=== PATIENT | female | born 1935 | race Caucasian/White ===

== ENCOUNTER 2017-01-24 16:23 | Inpatient (IN) | payer MEDICARE, BC ==
--- NOTE | 2017-01-24 16:46 | ER Document Report ---
ED Cardiac - General Chief Complaint: Irregular Pulse Stated Complaint: IRREGULAR HEART RATE,WEAK Time Seen by Provider: 01/24/17 16:44 Notes: Is a 81-year-old female who presents emergency department after referral from her primary care physician's office Dr. Soliz for an irregular heart rate. Patient states that since Monday she has been having weakness, diaphoresis, chills, nausea with vomiting, headache and shortness of breath. States that she felt like she was getting the flu. She denies any heart palpitations, chest pain, dyspnea on exertion, productive cough. Patient was referred from Dr. Soliz with A. fib with RVR. Patient denies any history of irregular heartbeat. She states she is on a blood thinner (Coumadin 6mg daily) for "many years" since she had a cardiac stent x1 for MS in the . She states she gets her blood drawn monthly and is not aware what her most recent INR was. She denies any hematochezia, BRB in her emesis, diarrhea, dark stools, BRBPR. Medical history significant for hypertension, hyperlipidemia, history of MS Past surgical history significant for cardiac stent in for MS Social history significant for former smoker, denies any alcohol or drug use Last stress test was 5 years ago Denies any allergies Medications metoprolol 50 mg twice daily, amitriptyline, pravastatin, amlodipine , Coumadin 6mg daily - Related Data Allergies/Adverse Reactions: No Known Allergies Allergy (Unverified 02/08/13 23:22) Home Medications: Current Home Medications Amitriptyline HCl [Elavil 25 mg Tablet] 25 mg PO DAILY 01/24/17 [History] Amlodipine Besylate [Norvasc 2.5 mg Tablet] 2.5 mg PO DAILY 01/24/17 [History] Metoprolol Succinate [Toprol Xl 50 mg Tab.sr] 50 mg PO Q12 01/24/17 [History] Pravastatin Sodium [Pravachol] 20 mg PO QHS 01/24/17 [History] Warfarin Sodium [Coumadin] 6 mg PO DAILY 01/24/17 [History] Past Medical History - Social History Smoking Status: Former Smoker Family History: Reviewed & Not Pertinent - Past Medical History Cardiac Medical History: Reports: Hx Hypercholesterolemia, Hx Hypertension Pulmonary Medical History: Denies: Hx Tuberculosis Psychiatric Medical History: Denies: Hx Depression - Immunizations Hx Diphtheria, Pertussis, Tetanus Vaccination: No - UNK Review of Systems - Review of Systems Constitutional: See HPI EENT: No symptoms reported Cardiovascular: See HPI Respiratory: See HPI Gastrointestinal: See HPI -: Yes All other systems reviewed and negative Physical Exam - Vital signs Vitals: Pulse Ox 94 01/24/17 16:30 Interpretation: Hypotensive, Tachycardic - Notes Notes: PHYSICAL EXAM GENERAL: Alert, interacts well. HEAD: Normocephalic, atraumatic. EYES: Pupils equal, round, and reactive to light. Extraocular movements intact. ENT: Oral mucosa moist, tongue midline. NECK: Full range of motion. Supple. Trachea midline. LUNGS: Clear to auscultation bilaterally, no wheezes, rales, or rhonchi. No respiratory distress. HEART: Regular rate and rhythm. No murmurs, gallops, or rubs. ABDOMEN: Soft, nondistended, nontender. No guarding, rebound, or rigidity.. Bowel sounds present in all 4 quadrants. EXTREMITIES: Moves all 4 extremities spontaneously. No edema, radial and dorsalis pedis pulses 2/4 bilaterally. No cyanosis. NEUROLOGICAL: Alert and oriented x4. Normal speech. PSYCH: Normal affect, normal mood. SKIN: Warm, dry, normal turgor. No rashes or lesions noted. Course - Re-evaluation Re-evalutation: 01/24/17 18:26 Patient is an 81-year-old female who presents via EMS with A. fib and RVR. Patient is hemodynamically stable, no acute distress and afebrile. Upon arrival , IV access was established and patient received 5 mg of metoprolol. Patient states that she was due for her second dose of metoprolol for this afternoon which she received in the emergency department. Patient has been placed on a monitoring engineer with a heart rate being maintained in the 120s and she received her medication. No acute distress noted since she received her medications. Chest x-ray does reveal a right lower lobe mass with surrounding pneumonia. Patient does have mild leukocytosis of 15 on CBC, no evidence of anemia. 01/24/17 18:48 PT/INR supratherapeutic at 114 and 15.1. Patient will receive 5mg PO vitamin K since her INR is > 10 and without s/s bleeding. CTA shows mass vs. consolidation. 01/24/17 19:[address] Mikal Rai to [facility] for sepsis 2/2 pneumonia, rate controlled a.fib with RVR with a rate of 120's and a BP of 110/80's, supratherapeutic INR 2/2 coumadin. I have signed out to Eben PELAEZ. - Vital Signs Vital signs: Temp Pulse Resp BP Pulse Ox 98.5 F 88 23 H 102/65 92 01/25/17 03:57 01/25/17 07:00 01/25/17 04:00 01/25/17 06:01 01/25/17 04:00 - Laboratory Result Diagrams: 01/24/17 17:02 01/24/17 17:02 Laboratory results interpreted by me: 01/24/17 01/24/17 01/24/17 17:02 17:02 17:02 WBC 15.6 H RDW 14.6 H Seg Neuts % (Manual) 86 H Lymphocytes % (Manual) 7 L Abs Neuts (Manual) 13.9 H PT INR D-Dimer Sodium 130.8 L Chloride 92 L Carbon Dioxide 21 L BUN 41 H Est GFR ( Amer) 51 L Est GFR (Non-Af Amer) 42 L Glucose 169 H Lactic Acid Direct Bilirubin 0.5 H AST 44 H Total Protein 6.1 L Albumin 3.2 L Free T3 pg/mL 2.52 L 01/24/17 01/24/17 17:02 18:00 WBC RDW Seg Neuts % (Manual) Lymphocytes % (Manual) Abs Neuts (Manual) PT 114.2 H* INR 15.14 H* D-Dimer 1.28 H Sodium Chloride Carbon Dioxide BUN Est GFR ( Amer) Est GFR (Non-Af Amer) Glucose Lactic Acid 3.9 H Direct Bilirubin AST Total Protein Albumin Free T3 pg/mL - Diagnostic Test Radiology reviewed: Image reviewed - Chest x-ray with evidence of a right lower lobe mass with surrounding pneumonia, Reports reviewed - EKG Interpretation by Me Rate: Tachycardia Rhythm: A.Fib When compared to previous EKG there are: Previous EKG unavailable Discharge - Discharge Clinical Impression: Atrial fibrillation, Sepsis, Pneumonia Disposition: ADMITTED INPATIENT Admitting Provider: Hospitalist - Dr. Ferny Rai Unit Admitted: [facility]
[2017-01-24] MEDS ORDERED: METOPROLOL TARTRATE PF/INJ 5 MG/5 ML SDV IV ONE (16:55)
[2017-01-24] MEDS: NORMAL SALINE 500 ML IV PRN ×2 (17:13→20:00)
[2017-01-24 17:29] LABS: HEMATOCRIT 36.7 % (36.0-47.0); HEMOGLOBIN 12.1 g/dL (12.0-15.5); HGB HCT DIFFERENCE -0.4; MEAN CORPUSCULAR HEMOGLOBIN 28.3 pg (27.0-33.4); MEAN CORPUSCULAR HGB CONC 33.1 g/dL (32.0-36.0); MEAN CORPUSCULAR VOLUME 86 fl (80-97); RED BLOOD COUNT 4.29 10^6/uL (3.72-5.28); RED CELL DISTRIBUTION WIDTH 14.6 % (11.5-14.0); WHITE BLOOD COUNT 15.6 10^3/uL (4.0-10.5)
[2017-01-24] MEDS ORDERED: METOPROLOL TARTRATE 50 MG TABLET PO ONE (17:41)
[2017-01-24 17:46] LABS: ALANINE AMINOTRANSFERASE 38 U/L (9-52); ALBUMIN 3.2 g/dL (3.5-5.0); ALKALINE PHOSPHATASE 87 U/L (38-126); ANION GAP 18 (5-19); ASPARTATE AMINO TRANSFERASE 44 U/L (14-36); BILIRUBIN,DIRECT 0.5 mg/dL (0.0-0.4); BILIRUBIN,TOTAL 0.7 mg/dL (0.2-1.3); BLOOD UREA NITROGEN 41 mg/dL (7-20); CALCIUM 8.8 mg/dL (8.4-10.2); CARBON DIOXIDE 21 mmol/L (22-30); CHLORIDE 92 mmol/L (98-107); CREATINE KINASE 108 U/L (30-135); CREATININE RESULT 1.22 mg/dL (0.52-1.25); GLUCOSE 169 mg/dL (75-110); POTASSIUM 3.7 mmol/L (3.6-5.0); SODIUM 130.8 mmol/L (137-145); TOTAL PROTEIN 6.1 g/dL (6.3-8.2)
--- NOTE | 2017-01-24 17:51 | RADIOLOGY REPORT (SQ) ---
EXAM DESCRIPTION: CHEST SINGLE VIEW COMPLETED DATE/TIME: 01/24/2017 5:42 pm REASON FOR STUDY: a fib COMPARISON: 09/01/2013 EXAM PARAMETERS: NUMBER OF VIEWS: One view. TECHNIQUE: Single frontal radiographic view of the chest acquired. RADIATION DOSE: NA LIMITATIONS: None. FINDINGS: LUNGS AND PLEURA: There is a right lower lobe mass with some surrounding atelectasis or pn eumonia. There are small bilateral pleural effusions. Minimal left basilar atelectasis. There is s carring in both lung apices. MEDIASTINUM AND HILAR STRUCTURES: No masses. Contour normal. HEART AND VASCULAR STRUCTURES: Heart normal in size. Normal vasculature. BONES: No acute findings. HARDWARE: None in the chest. OTHER: No other significant finding. IMPRESSION: Right lower lobe mass with surrounding atelectasis or pneumonia. Small bilateral pleura l effusions. There is scarring in both lung apices. Neoplasm cannot be excluded. TECHNICAL DOCUMENTATION: JOB ID: [id number]
[2017-01-24 17:59] LABS: CREATINE KINASE MB 1.29 ng/mL (<4.55)
[2017-01-24 18:00] LABS: TROPONIN I < 0.012 ng/mL
[2017-01-24 18:03] LABS: FREE T3 2.52 pg/mL (2.77-5.27)
[2017-01-24 18:05] LABS: BAND NEUTROPHILS % (MANUAL) 3 % (3-5); BASOPHILS % (MANUAL) 0 % (0-2); EOSINOPHILS % (MANUAL) 0 % (0-6); LYMPHOCYTES % (MANUAL) 7 % (13-45); TOTAL CELLS COUNTED 100
[2017-01-24 18:07] LABS: ACANTHOCYTES SLIGHT; ANISOCYTOSIS SLIGHT; OVALOCYTES SLIGHT; PLATELET CLUMPS PRESENT; POIKILOCYTOSIS 1+; POLYCHROMASIA SLIGHT; TOXIC GRANULATION SLIGHT; TOXIC VACUOLATION PRESENT
[2017-01-24] MEDS ORDERED: NORMAL SALINE 500 ML IV PRN (18:15)
[2017-01-24 18:16] LABS: THYROID STIMULATING HORMONE 0.99 uIU/mL (0.47-4.68)
[2017-01-24] MEDS ORDERED: CEFTRIAXONE 1 GM/D5W RTU 50 ML IV ONE (18:18)
[2017-01-24] MEDS ORDERED: AZITHROMYCIN INJ 500 MG VIAL IV ONE (18:19)
[2017-01-24 18:21] LABS: D-DIMER 1.28 ug/mL (0.00-0.50)
[2017-01-24 18:35] LABS: PROTHROMBIN TIME 114.2 SEC (11.4-15.4)
[2017-01-24] MEDS ORDERED: PHYTONADIONE 5 MG TABLET PO ONE (18:37)
--- NOTE | 2017-01-24 18:58 | RADIOLOGY REPORT (SQ) ---
EXAM DESCRIPTION: CTA CHEST COMPLETED DATE/TIME: 01/24/2017 6:30 pm REASON FOR STUDY: RLL mass, a fib COMPARISON: None. TECHNIQUE: CT scan of the chest performed using helical scanning technique with dynamic intravenous contrast injection. Images reviewed with lung, soft tissue and bone windows. Reconstructed coronal and sagittal MPR images reviewed. Additional 3 dimensional post-processing performed to develop Maximal Intensity Projection images (VA P). All images stored on PACS. All CT scanners at this facility use dose modulation, iterative reconstruction, and/or weight based d osing when appropriate to reduce radiation dose to as low as reasonably achievable (ALARA). [facility]: Dose Right [facility]: CareDose [facility]: Dose Right [facility]: Teradose 4D [facility]: Tab [place] CONTRAST TYPE AND DOSE: 62 mL Isovue 370- low osmolar. RENAL FUNCTION: Creatinine 1.2 BUN 41 RADIATION DOSE: 30.85 mGy. LIMITATIONS: None. FINDINGS: LUNGS AND PLEURA: There is the appearance of about a 5 cm mass in the right lower lobe. H owever, this mass is contiguous with soft tissue density that contains air bronchograms superiorly an d inferiorly, suggesting that this may represent consolidation. Extensive opacification is present i nferiorly in the right lower lobe as well. AORTA AND GREAT VESSELS: No aneurysm or dissection. Atherosclerosis. HEART: No pericardial effusion. PULMONARY ARTERIES: No emboli visualized in the main pulmonary arteries or the segmental branches. HILAR AND MEDIASTINAL STRUCTURES: The opacity in the superior segments of the right lower lobe is con tiguous with the right hilum. There are scattered mediastinal nodes there are generally small. HARDWARE: None in the chest. UPPER ABDOMEN: No significant findings. Limited exam. THYROID AND OTHER SOFT TISSUES: No masses. No adenopathy. BONES: No acute or significant finding. 3D MIPS: Confirm above findings. OTHER: No other significant finding. IMPRESSION: 1. There is a large mass involving the superior segments of the right lower lobe with a ir bronchograms peripherally. Certainly this may represent neoplasm. It could represent dense conso lidation. 2. There is no evidence of pulmonary embolus. TECHNICAL DOCUMENTATION: JOB ID: [id number] Quality ID # [id number]: Final reports with documentation of one or more dose reduction techniques (e.g., Au tomated exposure control, adjustment of the mA and/or kV according to patient size, use of iterative reconstruction technique) 2010 [employer]- All Rights Reserved
[2017-01-24] MEDS ORDERED: NORMAL SALINE 600 ML IV PRN (19:15)
--- NOTE | 2017-01-24 19:31 | EKG REPORT ---
SEVERITY:- ABNORMAL ECG - ATRIAL FIBRILLATION WITH RAPID V-RATE REPOLARIZATION ABNORMALITY, PROB RATE RELATED : Confirmed by: Anjel Durbin MD 24-Jan-2017 19:31:23
[2017-01-24] MEDS ORDERED: NORMAL SALINE 1000 ML 2,000 ML IV ONE (19:35)
[2017-01-24] MEDS ORDERED: IPRATROPIUM/ALBUTEROL 0.5-2.5 MG/3 ML AMPUL NEB PRN (19:36)
[2017-01-24] MEDS ORDERED: GUAIFENESIN SYRP 200 MG/10 ML UDC PO PRN (19:36)
[2017-01-24] MEDS ORDERED: ACETAMINOPHEN 325 MG TABLET PO PRN (19:36)
[2017-01-24] MEDS ORDERED: MAGNESIUM SULFATE/D5W 100 ML IV SCH (19:45)
[2017-01-24 20:24] LABS: APPEARANCE,URINE CLOUDY; BILIRUBIN,URINE NEGATIVE (NEGATIVE); GLUCOSE, URINE NEGATIVE (NEGATIVE); KETONES,URINE TRACE mg/dL (NEGATIVE); LEUKOCYTE ESTERASE,URINE SMALL (NEGATIVE); NITRITE,URINE NEGATIVE (NEGATIVE); PROTEIN,URINE 100 mg/dL (NEGATIVE); URINE SPECIFIC GRAVITY 1.035; UROBILINOGEN,URINE NEGATIVE mg/dL (<2.0)
[2017-01-24] MEDS: IPRATROPIUM/ALBUTEROL 0.5-2.5 MG/3 ML AMPUL NEB SCH (20:35)
[2017-01-24] MEDS: DILTIAZEM HCL/D5W 125 ML IV PRN (20:55)
[2017-01-24 21:23] LABS: PROTHROMBIN TIME > 120.0 SEC (11.4-15.4)
[2017-01-24] MEDS ORDERED: NORMAL SALINE 1000 ML 1,000 ML IV SCH (22:00)
[2017-01-24] MEDS ORDERED: CEFEPIME 2 GM/D5W RTU 50 ML IV SCH (22:00)
--- NOTE | 2017-01-24 22:04 | PDOC H&P ---
History of Present Illness Admission Date/PCP: 01/24/17 19:37 DONA WHITLOCK MD Patient complains of: Shortness of breath History of Present Illness: MARTA ROGERS is a 81 year old female with a past medical history of hypertension and coronary artery disease who would been her usual state of health at approximately 5 days ago noting shortness of breath and productive cough denying fever chills nausea vomiting chest pain or palpitations she comes to the emergency room for evaluation she was found to be secondary to pneumonia with lung mass, supratherapeutic INR with unclear Coumadin indication, and in A. fib with RVR. Started on empiric antibiotics refer to the hospital for admission. Previous episode of pneumonia or atrial fibrillation or palpitations. Unclear as to whether she has received a Pneumovax. Recent weight loss or bleeding. Past Medical History Cardiac Medical History: Reports: Hyperlipidema, Hypertension Pulmonary Medical History: Denies: Tuberculosis Psychiatric Medical History: Denies: Depression Social History Information Source: Patient, Relative Lives with: Family Smoking Status: Never Smoker Frequency of Alcohol Use: None Hx Recreational Drug Use: No Hx Prescription Drug Abuse: No - Advance Directive Resuscitation Status: Full Code Family History Family History: COPD. denies: Malignancy Parental Family History Reviewed: Yes Children Family History Reviewed: Yes Sibling(s) Family History Reviewed.: Yes Medication/Allergy Home Medications: Amitriptyline HCl [Elavil 25 mg Tablet] 25 mg PO DAILY 01/24/17 Amlodipine Besylate [Norvasc 2.5 mg Tablet] 2.5 mg PO DAILY 01/24/17 Metoprolol Succinate [Toprol Xl 50 mg Tab.sr] 50 mg PO Q12 01/24/17 Pravastatin Sodium [Pravachol] 20 mg PO QHS 01/24/17 Warfarin Sodium [Coumadin] 6 mg PO DAILY 01/24/17 Allergies/Adverse Reactions: No Known Allergies Allergy (Unverified 02/08/13 23:22) Review of Systems Constitutional: ABSENT: chills, fever(s), headache(s), weight gain, weight loss Eyes: ABSENT: visual disturbances Ears: ABSENT: hearing changes Cardiovascular: ABSENT: chest pain, dyspnea on exertion, edema, orthropnea, palpitations Respiratory: ABSENT: cough, hemoptysis Gastrointestinal: ABSENT: abdominal pain, constipation, diarrhea, hematemesis, hematochezia, nausea, vomiting Genitourinary: ABSENT: dysuria, hematuria Musculoskeletal: ABSENT: joint swelling Integumentary: ABSENT: rash, wounds Neurological: ABSENT: abnormal gait, abnormal speech, confusion, dizziness, focal weakness, syncope Psychiatric: ABSENT: anxiety, depression, homidical ideation, suicidal ideation Endocrine: ABSENT: cold intolerance, heat intolerance, polydipsia, polyuria Hematologic/Lymphatic: ABSENT: easy bleeding, easy bruising Physical Exam Vital Signs: Temp Pulse Resp BP Pulse Ox 120 H 28 H 91/66 L 90 L 01/24/17 20:35 01/24/17 21:01 01/24/17 21:01 01/24/17 21:01 General appearance: PRESENT: cooperative, mild distress, thin. ABSENT: disheveled Head exam: PRESENT: atraumatic, normocephalic Eye exam: PRESENT: conjunctiva pink, EOMI, PERRLA. ABSENT: scleral icterus Ear exam: PRESENT: normal external ear exam Mouth exam: PRESENT: moist, tongue midline Neck exam: ABSENT: carotid bruit, JVD, lymphadenopathy, thyromegaly Respiratory exam: PRESENT: accessory muscle use, crackles, decreased breath sounds, prolonged expiratory phas, rhonchi, tachypnea. ABSENT: chest wall tenderness, symmetrical Cardiovascular exam: PRESENT: irregular rhythm. ABSENT: diastolic murmur, rubs , systolic murmur Pulses: PRESENT: normal dorsalis pedis pul Vascular exam: PRESENT: normal capillary refill GI/Abdominal exam: PRESENT: normal bowel sounds, soft. ABSENT: distended, guarding, mass, organolmegaly, rebound, tenderness Rectal exam: PRESENT: deferred Extremities exam: PRESENT: full ROM. ABSENT: calf tenderness, clubbing, pedal edema Neurological exam: PRESENT: alert, awake, oriented to person, oriented to place , oriented to time, oriented to situation, CN II-XII grossly intact. ABSENT: motor sensory deficit Psychiatric exam: PRESENT: appropriate affect, normal mood. ABSENT: homicidal ideation, suicidal ideation Skin exam: PRESENT: dry, intact, warm. ABSENT: cyanosis, rash Results Laboratory Results: 01/24/17 20:05 Urine Color YELLOW Urine Appearance CLOUDY Urine pH 7.0 Ur Specific [place] 1.035 Urine Protein 100 H Urine Glucose (UA) NEGATIVE Urine Ketones TRACE H Urine Blood SMALL H Urine Nitrite NEGATIVE Ur Leukocyte Esterase SMALL H Urine WBC (Auto) 22 Urine RBC (Auto) 7 Impressions: Chest X-Ray 01/24/17 16:45 IMPRESSION: Right lower lobe mass with surrounding atelectasis or pneumonia. Small bilateral pleural effusions. There is scarring in both lung apices. Neoplasm cannot be excluded. Chest/Abdomen CTA 01/24/17 18:01 IMPRESSION: 1. There is a large mass involving the superior segments of the right lower lobe with air bronchograms peripherally. Certainly this may represent neoplasm. It could represent dense consolidation. 2. There is no evidence of pulmonary embolus. Assessment & Plan - Diagnosis (1) Pneumonia Is this a current diagnosis for this admission?: YesPlan: Acute problem. Likely postobstructive she is placed on cefepime and Levaquin albuterol and Atrovent with follow-up blood and sputum culture, CBC and chemistry (2) Sepsis Is this a current diagnosis for this admission?: YesPlan: Secondary to #1. IV fluid challenge consideration of stress dose steroids or pressors as needed. (3) Supratherapeutic INR Is this a current diagnosis for this admission?: YesPlan: Unclear indication for Coumadin will obtain her records. She has received vitamin K subcu and daily INRs ordered (4) Lung mass Is this a current diagnosis for this admission?: YesPlan: Pulmonology and oncology consultation ordered (5) Atrial fibrillation Is this a current diagnosis for this admission?: YesPlan: Likely secondary to #1. IV Cardizem, IV fluid challenge reevaluation of cardiac enzymes and transition to p.o. beta-cathy - Time Time Spent: 50 to 70 Minutes - Inpatient Certification Medical Necessity: Need Close Monitoring Due to Risk of Patient Decompensation
[2017-01-24] MEDS: GUAIFENESIN 600 MG TABLET.SA PO SCH (22:19)
[2017-01-24] MEDS: METOPROLOL TARTRATE 50 MG TABLET PO SCH (22:20)
[2017-01-25] MEDS ORDERED: CEFEPIME INJ 1 GM VIAL IV PRN (00:27)
[2017-01-25] MEDS ORDERED: CEFEPIME 2 GM/D5W RTU 2 GM/50 ML RTUPB IV ONE (01:00)
[2017-01-25] MEDS: IPRATROPIUM/ALBUTEROL 0.5-2.5 MG/3 ML AMPUL NEB SCH ×4 (02:01→19:45)
[2017-01-25] MEDS ORDERED: PHYTONADIONE INJ 10 MG/1 ML AMPULE SUBCUT ONE (02:32)
[2017-01-25] MEDS: HYDROCORTISONE SOD SUCCINATE INJ/PF 100 MG/2 ML SDV IV SCH ×3 (06:26→21:11)
[2017-01-25] MEDS: AMITRIPTYLINE HCL 25 MG TABLET PO SCH (09:18)
[2017-01-25] MEDS: AMLODIPINE BESYLATE 2.5 MG TABLET PO SCH (09:18)
[2017-01-25] MEDS: GUAIFENESIN 600 MG TABLET.SA PO SCH ×2 (09:19→21:11)
[2017-01-25] MEDS: LEVOFLOXACIN 750 MG/D5W RTU 150 ML IV SCH (09:19)
[2017-01-25] MEDS: METOPROLOL TARTRATE 50 MG TABLET PO SCH (09:19)
[2017-01-25] MEDS: CEFEPIME HCL 2 GM in DEXTROSE 5%-WATER 50 ML IV SCH (09:20)
[2017-01-25] MEDS ORDERED: CEFEPIME 2 GM/D5W RTU 2 GM/50 ML RTUPB IV SCH (10:00)
[2017-01-25] MEDS: DILTIAZEM HCL/D5W 125 ML IV PRN (10:19)
[2017-01-25 10:31] LABS: PROTHROMBIN TIME 100.7 SEC (11.4-15.4)
[2017-01-25] MEDS ORDERED: NORMAL SALINE 1000 ML 1,000 ML IV ONE (11:55)
[2017-01-25] MEDS ORDERED: METOPROLOL TARTRATE 50 MG TABLET PO SCH (12:01)
--- NOTE | 2017-01-25 12:11 | PDOC PROGRESS REPORT ---
Subjective Subjective:: Patient seen on morning rounds. She is awake alert and oriented 3. She is presently resting in bed during a breathing treatment. She states her breathing feels much improved since she arrived last night. She continues to have cough, it is not productive at the present time. She denies any chest pain , dizziness or dyspnea at the present time. She denies any nausea, vomiting, abdominal pain or diarrhea. She states she has had a good appetite at home prior to admission. She denies any weight loss. She does have a remote tobacco history. She states she does not smoke at present time. Physical Exam Vital Signs: Temp Pulse Resp BP Pulse Ox 98.5 F 98 20 102/65 88 L 01/25/17 03:57 01/25/17 08:29 01/25/17 08:29 01/25/17 06:01 01/25/17 08:29 Intake & Output 01/24/17 01/25/17 01/26/17 06:59 06:59 06:59 Intake Total 352 Output Total 150 Balance 202 Weight 56.7 kg General appearance: PRESENT: no acute distress, thin, well-developed Head exam: PRESENT: atraumatic, normocephalic Eye exam: PRESENT: conjunctival injection Ear exam: PRESENT: normal external ear exam Mouth exam: PRESENT: moist, tongue midline Neck exam: ABSENT: carotid bruit, JVD, lymphadenopathy, thyromegaly Respiratory exam: PRESENT: crackles - right base, decreased breath sounds, symmetrical, unlabored Cardiovascular exam: PRESENT: RRR. ABSENT: diastolic murmur, rubs, systolic murmur Pulses: PRESENT: normal dorsalis pedis pul Vascular exam: PRESENT: normal capillary refill GI/Abdominal exam: PRESENT: normal bowel sounds, soft. ABSENT: distended, guarding, mass, organolmegaly, rebound, tenderness Rectal exam: PRESENT: deferred Extremities exam: PRESENT: full ROM. ABSENT: calf tenderness, clubbing, pedal edema Neurological exam: PRESENT: alert, awake, oriented to person, oriented to place , oriented to time, oriented to situation, CN II-XII grossly intact. ABSENT: motor sensory deficit Psychiatric exam: PRESENT: appropriate affect, normal mood. ABSENT: homicidal ideation, suicidal ideation Skin exam: PRESENT: dry, intact, warm. ABSENT: cyanosis, rash Results Laboratory Results: 01/24/17 01/24/17 20:05 23:09 Lactic Acid 2.0 Urine Color YELLOW Urine Appearance CLOUDY Urine pH 7.0 Ur Specific [place] 1.035 Urine Protein 100 H Urine Glucose (UA) NEGATIVE Urine Ketones TRACE H Urine Blood SMALL H Urine Nitrite NEGATIVE Ur Leukocyte Esterase SMALL H Urine WBC (Auto) 22 Urine RBC (Auto) 7 Impressions: Chest X-Ray 01/24/17 16:45 IMPRESSION: Right lower lobe mass with surrounding atelectasis or pneumonia. Small bilateral pleural effusions. There is scarring in both lung apices. Neoplasm cannot be excluded. Chest/Abdomen CTA 01/24/17 18:01 IMPRESSION: 1. There is a large mass involving the superior segments of the right lower lobe with air bronchograms peripherally. Certainly this may represent neoplasm. It could represent dense consolidation. 2. There is no evidence of pulmonary embolus. Assessment & Plan - Diagnosis (1) Sepsis Qualifiers: Sepsis type: sepsis due to unspecified organism Qualified Code(s): A41.9 - Sepsis, unspecified organism Is this a current diagnosis for this admission?: YesPlan: Patient with tachycardia, tachypnea, hypotension and fever upon presentation. She appears to have a right lower lobe pneumonia associated with the right lower lobe lung mass. First 2 sets of blood cultures are positive for gram- positive cocci. She was aggressively given IV hydration and antibiotics. (2) Pneumonia Qualifiers: Laterality: right Lung location: lower lobe of lung Is this a current diagnosis for this admission?: YesPlan: Patient started on broad-spectrum IV antibiotics, blood cultures are positive for gram-positive cocci, sputum cultures pending. Appears to be associated with a right lower lung mass (3) Atrial fibrillation Qualifiers: Atrial fibrillation type: paroxysmal Qualified Code(s): I48.0 - Paroxysmal atrial fibrillation Is this a current diagnosis for this admission?: YesPlan: Patient has had a prior history of atrial fibrillation on warfarin. She is presently rate controlled on IV diltiazem. Initiate low-dose p.o. diltiazem and wean IV diltiazem off. (4) Lung mass Is this a current diagnosis for this admission?: YesPlan: Patient with no prior history lung cancer, found to have a 5 cm right lower lobe lung mass. Pulmonary has been consulted. She will need biopsy once her INR is subtherapeutic. (5) Supratherapeutic INR Is this a current diagnosis for this admission?: YesPlan: Patient's INR is noted to be 15 on admission. She is on daily warfarin therapy. She states it was last checked 2 months ago. She denies any recent antibiotic use. She states she has been taking it normal dose she was prescribed. She was given 2 doses of vitamin K in the emergency department. INR today is pending. She has no overt signs of any bleeding. - Time Time Spent with patient: 25-34 minutes Critical Time spent with patient: 15-24 minutes Medications reviewed and adjusted accordingly: Yes
[2017-01-25] MEDS ORDERED: DILTIAZEM HCL 60 MG TABLET PO ONE (12:30)
[2017-01-25] MEDS: DILTIAZEM HCL 60 MG TABLET PO SCH ×2 (13:53→21:11)
[2017-01-25] MEDS: METOPROLOL TARTRATE 25 MG TABLET PO SCH (21:11)
[2017-01-26] MEDS: IPRATROPIUM/ALBUTEROL 0.5-2.5 MG/3 ML AMPUL NEB SCH ×4 (01:25→19:48)
[2017-01-26] MEDS: DILTIAZEM HCL 60 MG TABLET PO SCH ×3 (05:27→22:07)
[2017-01-26] MEDS: HYDROCORTISONE SOD SUCCINATE INJ/PF 100 MG/2 ML SDV IV SCH ×3 (05:27→22:06)
[2017-01-26 09:59] LABS: PROTHROMBIN TIME 53.9 SEC (11.4-15.4)
[2017-01-26] MEDS: AMLODIPINE BESYLATE 2.5 MG TABLET PO SCH (10:46)
[2017-01-26] MEDS: METOPROLOL TARTRATE 25 MG TABLET PO SCH ×2 (10:47→22:07)
[2017-01-26] MEDS: AMITRIPTYLINE HCL 25 MG TABLET PO SCH (10:47)
[2017-01-26] MEDS: GUAIFENESIN 600 MG TABLET.SA PO SCH ×2 (10:47→22:07)
[2017-01-26] MEDS: LEVOFLOXACIN 750 MG/D5W RTU 150 ML IV SCH (10:48)
[2017-01-26] MEDS: CEFEPIME HCL 2 GM in DEXTROSE 5%-WATER 50 ML IV SCH (10:48)
--- NOTE | 2017-01-26 16:58 | PDOC PROGRESS REPORT ---
Subjective Progress Note for:: 01/26/17 Subjective:: Patient seen on morning rounds. She is awake alert and oriented 3. She is presently resting in bed during a breathing treatment. She states her breathing feels much improved since she arrived last night. She continues to have cough, it is not productive at the present time. She denies any chest pain , dizziness or dyspnea at the present time. She denies any nausea, vomiting, abdominal pain or diarrhea. She states she has had a good appetite at home prior to admission. She denies any weight loss. She does have a remote tobacco history. She states she does not smoke at present time. Physical Exam Vital Signs: Temp Pulse Resp BP Pulse Ox 97.7 F 80 16 115/59 L 92 01/26/17 07:35 01/26/17 13:49 01/26/17 13:49 01/26/17 07:35 01/26/17 13:49 Intake & Output 01/25/17 01/26/17 01/27/17 06:59 06:59 06:59 Intake Total 352 2466 Output Total 150 500 Balance 202 1966 Weight 56.7 kg 56.9 kg General appearance: PRESENT: no acute distress, thin, well-developed, well- nourished Head exam: PRESENT: atraumatic, normocephalic Eye exam: PRESENT: conjunctiva pink, EOMI, PERRLA. ABSENT: scleral icterus Ear exam: PRESENT: normal external ear exam Neck exam: ABSENT: carotid bruit, JVD, lymphadenopathy, thyromegaly Respiratory exam: PRESENT: clear to auscultation rojelio. ABSENT: rales, rhonchi, wheezes Cardiovascular exam: PRESENT: irregular rhythm, +S1 Pulses: PRESENT: normal carotid pulses, normal radial pulses Vascular exam: PRESENT: normal capillary refill GI/Abdominal exam: PRESENT: normal bowel sounds, soft. ABSENT: distended, guarding, mass, organolmegaly, rebound, tenderness Rectal exam: PRESENT: deferred Neurological exam: PRESENT: alert, awake, oriented to person, oriented to place , oriented to time, oriented to situation, CN II-XII grossly intact. ABSENT: motor sensory deficit Psychiatric exam: PRESENT: appropriate affect, normal mood. ABSENT: homicidal ideation, suicidal ideation Skin exam: PRESENT: dry, intact, warm. ABSENT: cyanosis, rash Results Impressions: Chest X-Ray 01/24/17 16:45 IMPRESSION: Right lower lobe mass with surrounding atelectasis or pneumonia. Small bilateral pleural effusions. There is scarring in both lung apices. Neoplasm cannot be excluded. Chest/Abdomen CTA 01/24/17 18:01 IMPRESSION: 1. There is a large mass involving the superior segments of the right lower lobe with air bronchograms peripherally. Certainly this may represent neoplasm. It could represent dense consolidation. 2. There is no evidence of pulmonary embolus. Assessment & Plan - Diagnosis (1) Sepsis Qualifiers: Sepsis type: sepsis due to unspecified organism Qualified Code(s): A41.9 - Sepsis, unspecified organism Is this a current diagnosis for this admission?: YesPlan: Patient with tachycardia, tachypnea, hypotension and fever upon presentation. She appears to have a right lower lobe pneumonia associated with the right lower lobe lung mass. First 2 sets of blood cultures are positive for gram- positive cocci. She was aggressively given IV hydration and antibiotics. (2) Pneumonia Qualifiers: Pneumonia type: due to unspecified organism Laterality: right Lung location: lower lobe of lung Qualified Code(s): J18.1 - Lobar pneumonia, unspecified organism Is this a current diagnosis for this admission?: YesPlan: Patient started on broad-spectrum IV antibiotics, blood cultures are positive for gram-positive cocci, sputum cultures pending. Appears to be associated with a right lower lung mass (3) Atrial fibrillation Qualifiers: Atrial fibrillation type: paroxysmal Qualified Code(s): I48.0 - Paroxysmal atrial fibrillation Is this a current diagnosis for this admission?: YesPlan: Patient has had a prior history of atrial fibrillation on warfarin. She is presently rate controlled on IV diltiazem. Initiate low-dose p.o. diltiazem and wean IV diltiazem off. (4) Lung mass Is this a current diagnosis for this admission?: YesPlan: Patient with no prior history lung cancer, found to have a 5 cm right lower lobe lung mass. Pulmonary has been consulted. She will need biopsy once her INR is subtherapeutic. (5) Supratherapeutic INR Is this a current diagnosis for this admission?: YesPlan: Patient's INR is noted to be 15 on admission. Today is 5.6 trending downwards - Time Time Spent with patient: 25-34 minutes Critical Time spent with patient: 25-34 minutes Medications reviewed and adjusted accordingly: Yes
[2017-01-27] MEDS: IPRATROPIUM/ALBUTEROL 0.5-2.5 MG/3 ML AMPUL NEB SCH ×4 (02:08→20:56)
[2017-01-27] MEDS: HYDROCORTISONE SOD SUCCINATE INJ/PF 100 MG/2 ML SDV IV SCH ×3 (05:34→21:32)
[2017-01-27] MEDS: DILTIAZEM HCL 60 MG TABLET PO SCH ×3 (05:34→21:32)
[2017-01-27 09:16] LABS: HEMATOCRIT 25.3 % (36.0-47.0); HGB HCT DIFFERENCE 0.2; MEAN CORPUSCULAR HEMOGLOBIN 28.7 pg (27.0-33.4); MEAN CORPUSCULAR HGB CONC 33.8 g/dL (32.0-36.0); MEAN CORPUSCULAR VOLUME 85 fl (80-97); RED BLOOD COUNT 2.98 10^6/uL (3.72-5.28); RED CELL DISTRIBUTION WIDTH 15.3 % (11.5-14.0)
[2017-01-27 09:27] LABS: HEMOGLOBIN 8.5 g/dL (12.0-15.5)
[2017-01-27 09:45] LABS: PROTHROMBIN TIME 32.5 SEC (11.4-15.4)
[2017-01-27 09:46] LABS: BASOPHILS % (MANUAL) 0 % (0-2); EOSINOPHILS % (MANUAL) 0 % (0-6); LYMPHOCYTES % (MANUAL) 3 % (13-45); TOTAL CELLS COUNTED 100
[2017-01-27 09:49] LABS: ANISOCYTOSIS SLIGHT; OVALOCYTES 1+; POIKILOCYTOSIS 1+; TOXIC GRANULATION SLIGHT
[2017-01-27 09:50] LABS: PLATELET CLUMPS PRESENT
[2017-01-27] MEDS: AMLODIPINE BESYLATE 2.5 MG TABLET PO SCH (10:14)
[2017-01-27] MEDS: METOPROLOL TARTRATE 25 MG TABLET PO SCH ×2 (10:14→21:32)
[2017-01-27] MEDS: GUAIFENESIN 600 MG TABLET.SA PO SCH ×2 (10:14→21:32)
[2017-01-27] MEDS: AMITRIPTYLINE HCL 25 MG TABLET PO SCH (10:15)
[2017-01-27] MEDS: CEFEPIME HCL 2 GM in DEXTROSE 5%-WATER 50 ML IV SCH (10:15)
[2017-01-27] MEDS: LEVOFLOXACIN 750 MG/D5W RTU 150 ML IV SCH (10:15)
--- NOTE | 2017-01-27 13:52 | PDOC PROGRESS REPORT ---
Subjective Progress Note for:: 01/27/17 Subjective:: Patient seen on morning rounds. She is awake alert and oriented 3. She is presently resting in bed. She continues to have cough, it is not productive at the present time. She denies any chest pain, dizziness or dyspnea at the present time. She denies any nausea, vomiting, abdominal pain or diarrhea. She states she has had a good appetite at home prior to admission. She denies any weight loss. She does have a remote tobacco history. She states she does not smoke at present time. Physical Exam Vital Signs: Temp Pulse Resp BP Pulse Ox 98.0 F 98 20 123/64 99 01/27/17 12:25 01/27/17 12:25 01/27/17 12:25 01/27/17 12:25 01/27/17 12:25 Intake & Output 01/26/17 01/27/17 01/28/17 06:59 06:59 06:59 Intake Total 2466 1379 357 Output Total 500 Balance 1966 1379 357 Weight 56.9 kg 56.3 kg General appearance: PRESENT: no acute distress, thin, well-developed Head exam: PRESENT: atraumatic, normocephalic Eye exam: PRESENT: conjunctiva pink, EOMI, PERRLA. ABSENT: scleral icterus Ear exam: PRESENT: normal external ear exam Mouth exam: PRESENT: moist, tongue midline Neck exam: ABSENT: carotid bruit, JVD, lymphadenopathy, thyromegaly Respiratory exam: PRESENT: clear to auscultation rojelio. ABSENT: rales, rhonchi, wheezes Cardiovascular exam: PRESENT: irregular rhythm, +S1, +S2. ABSENT: diastolic murmur, rubs, systolic murmur Pulses: PRESENT: normal dorsalis pedis pul Vascular exam: PRESENT: normal capillary refill GI/Abdominal exam: PRESENT: normal bowel sounds, soft. ABSENT: distended, guarding, mass, organolmegaly, rebound, tenderness Rectal exam: PRESENT: deferred Extremities exam: PRESENT: full ROM. ABSENT: calf tenderness, clubbing, pedal edema Neurological exam: PRESENT: alert, awake, oriented to person, oriented to place , oriented to time, oriented to situation, CN II-XII grossly intact. ABSENT: motor sensory deficit Psychiatric exam: PRESENT: appropriate affect, normal mood. ABSENT: homicidal ideation, suicidal ideation Skin exam: PRESENT: dry, intact, warm. ABSENT: cyanosis, rash Results Laboratory Results: 01/27/17 08:35 01/27/17 08:35 WBC 16.0 H RBC 2.98 L Hgb 8.5 L D Hct 25.3 L MCV 85 MCH 28.7 MCHC 33.8 RDW 15.3 H Plt Count 431 Seg Neutrophils % Not Reportable Lymphocytes % Not Reportable Monocytes % Not Reportable Eosinophils % Not Reportable Basophils % Not Reportable Absolute Neutrophils Not Reportable Absolute Lymphocytes Not Reportable Absolute Monocytes Not Reportable Absolute Eosinophils Not Reportable Absolute Basophils Not Reportable Impressions: Chest X-Ray 01/24/17 16:45 IMPRESSION: Right lower lobe mass with surrounding atelectasis or pneumonia. Small bilateral pleural effusions. There is scarring in both lung apices. Neoplasm cannot be excluded. Chest/Abdomen CTA 01/24/17 18:01 IMPRESSION: 1. There is a large mass involving the superior segments of the right lower lobe with air bronchograms peripherally. Certainly this may represent neoplasm. It could represent dense consolidation. 2. There is no evidence of pulmonary embolus. Assessment & Plan - Diagnosis (1) Sepsis Qualifiers: Sepsis type: sepsis due to unspecified organism Qualified Code(s): A41.9 - Sepsis, unspecified organism Is this a current diagnosis for this admission?: YesPlan: Patient with tachycardia, tachypnea, hypotension and fever upon presentation. She appears to have a right lower lobe pneumonia associated with the right lower lobe lung mass. First 2 sets of blood cultures are positive for gram- positive cocci. She was aggressively given IV hydration and antibiotics. (2) Pneumonia Qualifiers: Pneumonia type: due to unspecified organism Laterality: right Lung location: lower lobe of lung Qualified Code(s): J18.1 - Lobar pneumonia, unspecified organism Is this a current diagnosis for this admission?: YesPlan: Patient started on broad-spectrum IV antibiotics, blood cultures are positive for strep pneumoniae. Dr Scott is planning on doing a bronchoscopy on Monday. Appears to be associated with a right lower lung obstructive mass (3) Atrial fibrillation Qualifiers: Atrial fibrillation type: paroxysmal Qualified Code(s): I48.0 - Paroxysmal atrial fibrillation Is this a current diagnosis for this admission?: YesPlan: Patient has had a prior history of atrial fibrillation on warfarin. She is presently rate controlled with a supratherapeutic INR (4) Lung mass Is this a current diagnosis for this admission?: YesPlan: Patient with no prior history lung cancer, found to have a 5 cm right lower lobe lung mass. Pulmonary has been consulted. She will need biopsy once her INR is subtherapeutic. (5) Supratherapeutic INR Is this a current diagnosis for this admission?: YesPlan: Patient's INR is noted to be 15 on admission. Today is 2.99 Will continue to hold Warfarin for upcoming bronchoscopy - Time Time Spent with patient: 25-34 minutes Critical Time spent with patient: 15-24 minutes Medications reviewed and adjusted accordingly: Yes
--- NOTE | 2017-01-27 19:58 | PDOC CONSULTATION ---
Consultation Consult Date: 01/25/17 Attending physician:: JARRETT MALDONADO Consult reason:: LUNG MASS History of Present Illness Admission Date/PCP: 01/24/17 19:37 DONA WHITLOCK MD History of Present Illness: MARTA ROGERS is a 81 year old female with a past medical history of hypertension and coronary artery disease who would been her usual state of health at approximately 5 days ago noting shortness of breath and productive cough denying fever chills nausea vomiting chest pain or palpitations she comes to the emergency room for evaluation she was found to be secondary to pneumonia with lung mass, supratherapeutic INR with unclear Coumadin indication, and in A. fib with RVR. Started on empiric antibiotics refer to the hospital for admission. Previous episode of pneumonia or atrial fibrillation or palpitations. Unclear as to whether she has received a Pneumovax. Recent weight loss or bleeding. Past Medical History Cardiac Medical History: Reports: Hyperlipidema, Hypertension Pulmonary Medical History: Denies: Tuberculosis Psychiatric Medical History: Denies: Depression Social History Information Source: Patient, [facility] Records Lives with: Family Smoking Status: Former Smoker Cigarettes Packs Per Day: 2 Number of Years Smokin Passive smoke exposure as: Both Frequency of Alcohol Use: None Hx Recreational Drug Use: No Hx Prescription Drug Abuse: No Do you have pets?: No Have you had any respiratory illnesses as a child?: No Have you been exposed to any sick contacts recently?: No Have you travelled outside of [place] in the past 12 months?: No - Advance Directive Resuscitation Status: Full Code Family History Family History: Reviewed & Not Pertinent Parental Family History Reviewed: Yes Children Family History Reviewed: Yes Sibling(s) Family History Reviewed.: Yes Medication/Allergy Home Medications: Amitriptyline HCl [Elavil 25 mg Tablet] 25 mg PO DAILY 01/24/17 Amlodipine Besylate [Norvasc 2.5 mg Tablet] 2.5 mg PO DAILY 01/24/17 Metoprolol Succinate [Toprol Xl 50 mg Tab.sr] 50 mg PO Q12 01/24/17 Pravastatin Sodium [Pravachol] 20 mg PO QHS 01/24/17 Warfarin Sodium [Coumadin] 6 mg PO DAILY 01/24/17 Allergies/Adverse Reactions: No Known Allergies Allergy (Unverified 02/08/13 23:22) Physical Exam Vital Signs: Temp Pulse Resp BP Pulse Ox 97.5 F 101 H 16 136/79 H 92 01/27/17 07:14 01/27/17 08:30 01/27/17 08:30 01/27/17 07:14 01/27/17 08:30 Intake & Output 01/26/17 01/27/17 01/28/17 06:59 06:59 06:59 Intake Total 2466 1379 Output Total 500 Balance 1966 1379 Weight 56.9 kg 56.3 kg General appearance: PRESENT: no acute distress, cooperative, disheveled, obese, well-developed Head exam: PRESENT: atraumatic, normocephalic Eye exam: PRESENT: conjunctiva pale, EOMI Mouth exam: PRESENT: dry mucosa, neck supple Neck exam: ABSENT: carotid bruit, JVD, lymphadenopathy, thyromegaly Respiratory exam: PRESENT: crackles, decreased breath sounds, prolonged expiratory phas, rales, rhonchi, unlabored, wheezes Cardiovascular exam: PRESENT: irregular rhythm Pulses: PRESENT: normal radial pulses GI/Abdominal exam: PRESENT: ascites Rectal exam: PRESENT: deferred Gentrourinary exam: PRESENT: indwelling catheter Musculoskeletal exam: PRESENT: normal inspection Neurological exam: PRESENT: awake Psychiatric exam: PRESENT: flat affect Skin exam: PRESENT: dry, warm Results Impressions: Chest X-Ray 01/24/17 16:45 IMPRESSION: Right lower lobe mass with surrounding atelectasis or pneumonia. Small bilateral pleural effusions. There is scarring in both lung apices. Neoplasm cannot be excluded. Chest/Abdomen CTA 01/24/17 18:01 IMPRESSION: 1. There is a large mass involving the superior segments of the right lower lobe with air bronchograms peripherally. Certainly this may represent neoplasm. It could represent dense consolidation. 2. There is no evidence of pulmonary embolus. Assessment & Plan - Diagnosis (1) Atrial fibrillation Qualifiers: Atrial fibrillation type: paroxysmal Qualified Code(s): I48.0 - Paroxysmal atrial fibrillation Is this a current diagnosis for this admission?: YesPlan: ventricular response controlled (2) Lung mass Is this a current diagnosis for this admission?: YesPlan: scheduled for bronchoscopy on January 31 (3) Pneumonia Qualifiers: Pneumonia type: due to unspecified organism Laterality: right Lung location: lower lobe of lung Qualified Code(s): J18.1 - Lobar pneumonia, unspecified organism Is this a current diagnosis for this admission?: Yes (4) Sepsis Qualifiers: Sepsis type: sepsis due to unspecified organism Qualified Code(s): A41.9 - Sepsis, unspecified organism Is this a current diagnosis for this admission?: Yes (5) Supratherapeutic INR Is this a current diagnosis for this admission?: YesPlan: must be corrected prior to FOB
--- NOTE | 2017-01-27 20:17 | PDOC PROGRESS REPORT ---
Subjective Progress Note for:: 01/26/17 Subjective:: somewhat flat affect Physical Exam Vital Signs: Temp Pulse Resp BP Pulse Ox 97.5 F 101 H 16 136/79 H 92 01/27/17 07:14 01/27/17 08:30 01/27/17 08:30 01/27/17 07:14 01/27/17 08:30 Intake & Output 01/26/17 01/27/17 01/28/17 06:59 06:59 06:59 Intake Total 2466 1379 Output Total 500 Balance 1966 1379 Weight 56.9 kg 56.3 kg General appearance: PRESENT: no acute distress, disheveled, obese Head exam: PRESENT: normocephalic Eye exam: PRESENT: conjunctiva pale Mouth exam: PRESENT: dry mucosa Neck exam: ABSENT: carotid bruit, JVD, lymphadenopathy, thyromegaly Respiratory exam: PRESENT: crackles, decreased breath sounds, prolonged expiratory phas, rhonchi, unlabored Cardiovascular exam: PRESENT: RRR, +S1, +S2 Pulses: PRESENT: normal radial pulses GI/Abdominal exam: PRESENT: normal bowel sounds, soft. ABSENT: distended, guarding, mass, organolmegaly, rebound, tenderness Rectal exam: PRESENT: deferred Musculoskeletal exam: PRESENT: normal inspection Neurological exam: PRESENT: awake Psychiatric exam: PRESENT: flat affect Skin exam: PRESENT: dry, warm Results Impressions: Chest X-Ray 01/24/17 16:45 IMPRESSION: Right lower lobe mass with surrounding atelectasis or pneumonia. Small bilateral pleural effusions. There is scarring in both lung apices. Neoplasm cannot be excluded. Chest/Abdomen CTA 01/24/17 18:01 IMPRESSION: 1. There is a large mass involving the superior segments of the right lower lobe with air bronchograms peripherally. Certainly this may represent neoplasm. It could represent dense consolidation. 2. There is no evidence of pulmonary embolus. Assessment & Plan - Diagnosis (1) Atrial fibrillation Qualifiers: Atrial fibrillation type: paroxysmal Qualified Code(s): I48.0 - Paroxysmal atrial fibrillation Is this a current diagnosis for this admission?: YesPlan: stable (2) Lung mass Is this a current diagnosis for this admission?: YesPlan: bronch scheduled (3) Supratherapeutic INR Is this a current diagnosis for this admission?: Yes
--- NOTE | 2017-01-27 20:21 | PDOC PROGRESS REPORT ---
Subjective Progress Note for:: 01/26/17 Subjective:: somewhat flat affect Physical Exam Vital Signs: Temp Pulse Resp BP Pulse Ox 97.5 F 101 H 16 136/79 H 92 01/27/17 07:14 01/27/17 08:30 01/27/17 08:30 01/27/17 07:14 01/27/17 08:30 Intake & Output 01/26/17 01/27/17 01/28/17 06:59 06:59 06:59 Intake Total 2466 1379 Output Total 500 Balance 1966 1379 Weight 56.9 kg 56.3 kg General appearance: PRESENT: disheveled, obese Head exam: PRESENT: atraumatic, normocephalic Eye exam: PRESENT: conjunctiva pale Mouth exam: PRESENT: dry mucosa, neck supple Neck exam: ABSENT: carotid bruit, JVD, lymphadenopathy, thyromegaly Respiratory exam: PRESENT: decreased breath sounds, prolonged expiratory phas, rales, stridor, unlabored Cardiovascular exam: PRESENT: irregular rhythm Pulses: PRESENT: normal radial pulses GI/Abdominal exam: PRESENT: ascites Rectal exam: PRESENT: deferred Gentrourinary exam: PRESENT: indwelling catheter Musculoskeletal exam: PRESENT: normal inspection Neurological exam: PRESENT: awake Psychiatric exam: PRESENT: flat affect Skin exam: PRESENT: dry, warm Results Impressions: Chest X-Ray 01/24/17 16:45 IMPRESSION: Right lower lobe mass with surrounding atelectasis or pneumonia. Small bilateral pleural effusions. There is scarring in both lung apices. Neoplasm cannot be excluded. Chest/Abdomen CTA 01/24/17 18:01 IMPRESSION: 1. There is a large mass involving the superior segments of the right lower lobe with air bronchograms peripherally. Certainly this may represent neoplasm. It could represent dense consolidation. 2. There is no evidence of pulmonary embolus. Assessment & Plan - Diagnosis (1) Atrial fibrillation Qualifiers: Atrial fibrillation type: paroxysmal Qualified Code(s): I48.0 - Paroxysmal atrial fibrillation Is this a current diagnosis for this admission?: YesPlan: stable (2) Lung mass Is this a current diagnosis for this admission?: YesPlan: bronch scheduled (3) Supratherapeutic INR Is this a current diagnosis for this admission?: YesPlan: must be corrected prior to FOB
[2017-01-28] MEDS: IPRATROPIUM/ALBUTEROL 0.5-2.5 MG/3 ML AMPUL NEB SCH ×4 (02:15→20:01)
[2017-01-28] MEDS: HYDROCORTISONE SOD SUCCINATE INJ/PF 100 MG/2 ML SDV IV SCH ×3 (05:26→21:05)
[2017-01-28] MEDS: DILTIAZEM HCL 60 MG TABLET PO SCH ×4 (05:26→20:53)
[2017-01-28 06:49] LABS: HEMATOCRIT 26.4 % (36.0-47.0); HGB HCT DIFFERENCE 0.6; MEAN CORPUSCULAR HEMOGLOBIN 29.2 pg (27.0-33.4); MEAN CORPUSCULAR HGB CONC 34.2 g/dL (32.0-36.0); MEAN CORPUSCULAR VOLUME 85 fl (80-97); RED BLOOD COUNT 3.09 10^6/uL (3.72-5.28); RED CELL DISTRIBUTION WIDTH 15.1 % (11.5-14.0); WHITE BLOOD COUNT 14.5 10^3/uL (4.0-10.5)
[2017-01-28 06:51] LABS: ANION GAP 9 (5-19); BLOOD UREA NITROGEN 32 mg/dL (7-20); CARBON DIOXIDE 22 mmol/L (22-30); CHLORIDE 108 mmol/L (98-107); CREATININE RESULT 0.69 mg/dL (0.52-1.25); GLUCOSE 224 mg/dL (75-110); POTASSIUM 4.1 mmol/L (3.6-5.0); SODIUM 139.3 mmol/L (137-145)
[2017-01-28 07:03] LABS: BAND NEUTROPHILS % (MANUAL) 2 % (3-5); BASOPHILS % (MANUAL) 0 % (0-2); EOSINOPHILS % (MANUAL) 0 % (0-6); LYMPHOCYTES % (MANUAL) 6 % (13-45); TOTAL CELLS COUNTED 100
[2017-01-28 07:05] LABS: TOXIC GRANULATION 1+
[2017-01-28 07:06] LABS: ANISOCYTOSIS SLIGHT; OVALOCYTES 1+; POIKILOCYTOSIS 1+; POLYCHROMASIA SLIGHT; TARGET CELLS SLIGHT
[2017-01-28] MEDS: AMITRIPTYLINE HCL 25 MG TABLET PO SCH (09:42)
[2017-01-28] MEDS: AMLODIPINE BESYLATE 2.5 MG TABLET PO SCH (09:42)
[2017-01-28] MEDS: METOPROLOL TARTRATE 25 MG TABLET PO SCH ×2 (09:42→21:05)
[2017-01-28] MEDS: GUAIFENESIN 600 MG TABLET.SA PO SCH ×2 (09:42→21:05)
[2017-01-28] MEDS: LEVOFLOXACIN 750 MG/D5W RTU 150 ML IV SCH (09:42)
[2017-01-28] MEDS: CEFEPIME HCL 2 GM in DEXTROSE 5%-WATER 50 ML IV SCH (11:00)
[2017-01-29] MEDS: IPRATROPIUM/ALBUTEROL 0.5-2.5 MG/3 ML AMPUL NEB SCH ×4 (02:31→20:17)
[2017-01-29] MEDS: DILTIAZEM HCL 60 MG TABLET PO SCH ×4 (03:50→20:33)
[2017-01-29 06:00] LABS: PROTHROMBIN TIME 20.3 SEC (11.4-15.4)
[2017-01-29] MEDS: HYDROCORTISONE SOD SUCCINATE INJ/PF 100 MG/2 ML SDV IV SCH ×3 (06:25→21:39)
[2017-01-29] MEDS: METOPROLOL TARTRATE 25 MG TABLET PO SCH (09:10)
[2017-01-29] MEDS: AMITRIPTYLINE HCL 25 MG TABLET PO SCH (09:10)
[2017-01-29] MEDS: AMLODIPINE BESYLATE 2.5 MG TABLET PO SCH (09:10)
[2017-01-29] MEDS: GUAIFENESIN 600 MG TABLET.SA PO SCH ×2 (09:10→21:39)
[2017-01-29] MEDS: CEFEPIME HCL 2 GM in DEXTROSE 5%-WATER 50 ML IV SCH (09:11)
[2017-01-29] MEDS: LEVOFLOXACIN 750 MG/D5W RTU 150 ML IV SCH (13:38)
--- NOTE | 2017-01-29 14:08 | PDOC PROGRESS REPORT ---
Subjective Progress Note for:: 01/28/17 Subjective:: Patient seen on morning rounds. She is awake alert and oriented 3. She is presently resting in bed. She continues to have cough, it is not productive at the present time. She denies any chest pain, dizziness or dyspnea at the present time. She denies any nausea, vomiting, abdominal pain or diarrhea. She states she has had a good appetite at home prior to admission. She denies any weight loss. She does have a remote tobacco history. Rest of the review of systems is negative at the present time Physical Exam Vital Signs: Temp Pulse Resp BP Pulse Ox 98.0 F 74 18 126/76 H 98 01/29/17 12:51 01/29/17 12:51 01/29/17 12:51 01/29/17 12:51 01/29/17 12:51 Intake & Output 01/28/17 01/29/17 01/30/17 06:59 06:59 06:59 Intake Total 1116 1998 358 Balance 1116 1998 358 Weight 56.2 kg 56 kg General appearance: PRESENT: no acute distress, thin, well-developed Head exam: PRESENT: atraumatic Eye exam: PRESENT: conjunctiva pale Ear exam: PRESENT: normal external ear exam Mouth exam: PRESENT: moist, tongue midline Neck exam: ABSENT: carotid bruit, JVD, lymphadenopathy, thyromegaly Respiratory exam: PRESENT: crackles, decreased breath sounds - right base, symmetrical, unlabored Cardiovascular exam: PRESENT: irregular rhythm, +S1, +S2. ABSENT: diastolic murmur, rubs, systolic murmur Pulses: PRESENT: normal carotid pulses, normal radial pulses Vascular exam: PRESENT: normal capillary refill GI/Abdominal exam: PRESENT: normal bowel sounds, soft Rectal exam: PRESENT: deferred Extremities exam: PRESENT: full ROM. ABSENT: calf tenderness, clubbing, pedal edema Musculoskeletal exam: PRESENT: ambulatory, full ROM, normal inspection Neurological exam: PRESENT: alert, awake, oriented to person, oriented to place , oriented to time, oriented to situation, CN II-XII grossly intact. ABSENT: motor sensory deficit Psychiatric exam: PRESENT: appropriate affect, normal mood. ABSENT: homicidal ideation, suicidal ideation Skin exam: PRESENT: dry, intact, warm. ABSENT: cyanosis, rash Results Laboratory Results: 01/28/17 06:09 05/27/17 06:09 Impressions: Chest X-Ray 01/24/17 16:45 IMPRESSION: Right lower lobe mass with surrounding atelectasis or pneumonia. Small bilateral pleural effusions. There is scarring in both lung apices. Neoplasm cannot be excluded. Chest/Abdomen CTA 01/24/17 18:01 IMPRESSION: 1. There is a large mass involving the superior segments of the right lower lobe with air bronchograms peripherally. Certainly this may represent neoplasm. It could represent dense consolidation. 2. There is no evidence of pulmonary embolus. Assessment & Plan - Diagnosis (1) Sepsis Qualifiers: Sepsis type: sepsis due to unspecified organism Qualified Code(s): A41.9 - Sepsis, unspecified organism Is this a current diagnosis for this admission?: YesPlan: Resolved, secondary to right lower lobe pneumonia and strep bacteremia (2) Pneumonia Qualifiers: Pneumonia type: due to unspecified organism Laterality: right Lung location: lower lobe of lung Qualified Code(s): J18.1 - Lobar pneumonia, unspecified organism Is this a current diagnosis for this admission?: YesPlan: Continue IV antibiotics WBC normalizing (3) Atrial fibrillation Qualifiers: Atrial fibrillation type: paroxysmal Qualified Code(s): I48.0 - Paroxysmal atrial fibrillation Is this a current diagnosis for this admission?: YesPlan: Patient has had a prior history of atrial fibrillation on warfarin. She is presently rate controlled with a supratherapeutic INR (4) Lung mass Is this a current diagnosis for this admission?: YesPlan: Patient with no prior history lung cancer, found to have a 5 cm right lower lobe lung mass. Pulmonary has been consulted. Plan is for bronchoscopy on Monday with Dr Scott. INR 1.68 today (5) Supratherapeutic INR Is this a current diagnosis for this admission?: YesPlan: Patient's INR is noted to be 15 on admission. Today is 2.99 Will continue to hold Warfarin for upcoming bronchoscopy - Time Time Spent with patient: 25-34 minutes Critical Time spent with patient: 15-24 minutes Medications reviewed and adjusted accordingly: Yes Anticipated discharge: Home with Homehealth - Inpatient Certification Based on my medical assessment, after consideration of the patient's comorbidities, presenting symptoms, or acuity I expect that the services needed warrant INPATIENT care.: Yes I certify that my determination is in accordance with my understanding of Medicare's requirements for reasonable and necessary INPATIENT services [42 CFR 412.3e].: Yes
--- NOTE | 2017-01-29 14:13 | PDOC PROGRESS REPORT ---
Subjective Progress Note for:: 01/29/17 Subjective:: Patient seen on morning rounds. She is awake alert and oriented 3. She is sitting in the bedside chair. She continues to have cough, it is not productive at the present time. She denies any chest pain, dizziness or dyspnea at the present time. She denies any nausea, vomiting, abdominal pain or diarrhea. She states she has had a good appetite at home prior to admission. She denies any weight loss. She does have a remote tobacco history. Rest of the review of systems is negative at the present time Physical Exam Vital Signs: Temp Pulse Resp BP Pulse Ox 98.0 F 74 18 126/76 H 98 01/29/17 12:51 01/29/17 12:51 01/29/17 12:51 01/29/17 12:51 01/29/17 12:51 Intake & Output 01/28/17 01/29/17 01/30/17 06:59 06:59 06:59 Intake Total 1116 1998 358 Balance 1116 1998 358 Weight 56.2 kg 56 kg General appearance: PRESENT: no acute distress, cooperative, thin Head exam: PRESENT: atraumatic, normocephalic Eye exam: PRESENT: conjunctiva pale Ear exam: PRESENT: normal external ear exam Mouth exam: PRESENT: moist, neck supple, tongue midline Neck exam: ABSENT: carotid bruit, JVD, lymphadenopathy, thyromegaly Respiratory exam: PRESENT: crackles, decreased breath sounds, symmetrical, wheezes - right base Cardiovascular exam: PRESENT: irregular rhythm, +S1, +S2. ABSENT: diastolic murmur, rubs, systolic murmur Pulses: PRESENT: normal carotid pulses, normal radial pulses Vascular exam: PRESENT: normal capillary refill GI/Abdominal exam: PRESENT: normal bowel sounds, soft. ABSENT: distended, guarding, mass, organolmegaly, rebound, tenderness Rectal exam: PRESENT: deferred Extremities exam: PRESENT: full ROM. ABSENT: calf tenderness, clubbing, pedal edema Musculoskeletal exam: PRESENT: ambulatory, full ROM, normal inspection Neurological exam: PRESENT: alert, awake, oriented to person, oriented to place , oriented to time, oriented to situation, CN II-XII grossly intact. ABSENT: motor sensory deficit Psychiatric exam: PRESENT: appropriate affect, normal mood. ABSENT: homicidal ideation, suicidal ideation Skin exam: PRESENT: dry, intact, warm. ABSENT: cyanosis, rash Results Laboratory Results: 01/28/17 06:09 01/28/17 06:09 Impressions: Chest X-Ray 01/24/17 16:45 IMPRESSION: Right lower lobe mass with surrounding atelectasis or pneumonia. Small bilateral pleural effusions. There is scarring in both lung apices. Neoplasm cannot be excluded. Chest/Abdomen CTA 01/24/17 18:01 IMPRESSION: 1. There is a large mass involving the superior segments of the right lower lobe with air bronchograms peripherally. Certainly this may represent neoplasm. It could represent dense consolidation. 2. There is no evidence of pulmonary embolus. Assessment & Plan - Diagnosis (1) Sepsis Qualifiers: Sepsis type: sepsis due to unspecified organism Qualified Code(s): A41.9 - Sepsis, unspecified organism Is this a current diagnosis for this admission?: YesPlan: Resolved. Continue antibiotics (2) Pneumonia Qualifiers: Pneumonia type: due to unspecified organism Laterality: right Lung location: lower lobe of lung Qualified Code(s): J18.1 - Lobar pneumonia, unspecified organism Is this a current diagnosis for this admission?: YesPlan: Continue IV antibiotics WBC normalizing (3) Atrial fibrillation Qualifiers: Atrial fibrillation type: paroxysmal Qualified Code(s): I48.0 - Paroxysmal atrial fibrillation Is this a current diagnosis for this admission?: YesPlan: Patient has had a prior history of atrial fibrillation on warfarin. She is presently rate controlled with a supratherapeutic INR (4) Lung mass Is this a current diagnosis for this admission?: YesPlan: Patient with no prior history lung cancer, found to have a 5 cm right lower lobe lung mass. Pulmonary has been consulted. Plan is for bronchoscopy on Monday with Dr Scott. INR 1.68 today (5) Supratherapeutic INR Is this a current diagnosis for this admission?: YesPlan: Patient's INR is noted to be 15 on admission. Today is 2.99 Will continue to hold Warfarin for upcoming bronchoscopy - Time Time Spent with patient: 25-34 minutes Critical Time spent with patient: 15-24 minutes Medications reviewed and adjusted accordingly: Yes
[2017-01-29] MEDS ORDERED: METOPROLOL TARTRATE PF/INJ 5 MG/5 ML SDV IV ONE ×2 (17:38→17:44)
[2017-01-29] MEDS: METOPROLOL SUCCINATE 50 MG TAB.SR.24H PO SCH (21:39)
[2017-01-30] MEDS: IPRATROPIUM/ALBUTEROL 0.5-2.5 MG/3 ML AMPUL NEB SCH ×4 (02:12→20:28)
[2017-01-30] MEDS: DILTIAZEM HCL 60 MG TABLET PO SCH ×4 (02:30→20:06)
[2017-01-30] MEDS: HYDROCORTISONE SOD SUCCINATE INJ/PF 100 MG/2 ML SDV IV SCH (05:50)
[2017-01-30 06:03] LABS: ANION GAP 8 (5-19); BLOOD UREA NITROGEN 27 mg/dL (7-20); CALCIUM 8.7 mg/dL (8.4-10.2); CARBON DIOXIDE 26 mmol/L (22-30); CHLORIDE 105 mmol/L (98-107); CREATININE RESULT 0.59 mg/dL (0.52-1.25); GLUCOSE 208 mg/dL (75-110); HEMATOCRIT 27.3 % (36.0-47.0); HGB HCT DIFFERENCE -0.3; MEAN CORPUSCULAR HEMOGLOBIN 28.5 pg (27.0-33.4); MEAN CORPUSCULAR VOLUME 86 fl (80-97); POTASSIUM 4.1 mmol/L (3.6-5.0); RED BLOOD COUNT 3.16 10^6/uL (3.72-5.28); RED CELL DISTRIBUTION WIDTH 14.8 % (11.5-14.0); SODIUM 139.4 mmol/L (137-145)
[2017-01-30 06:55] LABS: BAND NEUTROPHILS % (MANUAL) 3 % (3-5); BASOPHILS % (MANUAL) 0 % (0-2); EOSINOPHILS % (MANUAL) 0 % (0-6); LYMPHOCYTES % (MANUAL) 6 % (13-45); TOTAL CELLS COUNTED 100
[2017-01-30 07:03] LABS: ANISOCYTOSIS 1+; HYPOCHROMASIA SLIGHT; OVALOCYTES 1+; POIKILOCYTOSIS 1+; POLYCHROMASIA SLIGHT; TOXIC GRANULATION SLIGHT
[2017-01-30] MEDS ORDERED: PHYTONADIONE 5 MG TABLET PO ONE (09:15)
--- NOTE | 2017-01-30 09:54 | PDOC PROGRESS REPORT ---
Subjective Progress Note for:: 01/30/17 Subjective:: Patient seen on morning rounds. She is awake alert and oriented 3. She is sitting in the bedside chair. She continues to have cough, it is not productive at the present time. She denies any chest pain, dizziness or dyspnea at the present time. She denies any nausea, vomiting, abdominal pain or diarrhea. She states she has had a good appetite at home prior to admission. She denies any weight loss. She does have a remote tobacco history. Rest of the review of systems is negative at the present time Physical Exam Vital Signs: Temp Pulse Resp BP Pulse Ox 97.8 F 81 18 128/79 H 94 01/30/17 07:24 01/30/17 08:07 01/30/17 08:07 01/30/17 07:24 01/30/17 08:07 Intake & Output 01/29/17 01/30/17 01/31/17 06:59 06:59 06:59 Intake Total 1998 1003 Output Total 250 Balance 1998 753 Weight 56 kg 55.7 kg General appearance: PRESENT: no acute distress, thin, well-developed Head exam: PRESENT: atraumatic, normocephalic Eye exam: PRESENT: conjunctiva pale Ear exam: PRESENT: normal external ear exam Mouth exam: PRESENT: moist, tongue midline Neck exam: ABSENT: carotid bruit, JVD, lymphadenopathy, thyromegaly Respiratory exam: PRESENT: crackles, decreased breath sounds - right base, symmetrical, unlabored Cardiovascular exam: PRESENT: irregular rhythm, +S1, +S2 Pulses: PRESENT: normal carotid pulses, normal radial pulses Vascular exam: PRESENT: normal capillary refill GI/Abdominal exam: PRESENT: normal bowel sounds, soft. ABSENT: distended, guarding, mass, organolmegaly, rebound, tenderness Extremities exam: PRESENT: full ROM. ABSENT: calf tenderness, clubbing, pedal edema Musculoskeletal exam: PRESENT: ambulatory Neurological exam: PRESENT: alert, awake, oriented to person, oriented to place , oriented to time, oriented to situation, CN II-XII grossly intact. ABSENT: motor sensory deficit Psychiatric exam: PRESENT: appropriate affect, normal mood. ABSENT: homicidal ideation, suicidal ideation Skin exam: PRESENT: dry, intact, warm. ABSENT: cyanosis, rash Results Laboratory Results: 01/30/17 05:31 01/30/17 05:31 01/30/17 01/30/17 05:31 05:31 WBC 15.0 H RBC 3.16 L Hgb 9.0 L Hct 27.3 L MCV 86 MCH 28.5 MCHC 33.0 RDW 14.8 H Plt Count 402 Seg Neutrophils % Not Reportable Lymphocytes % Not Reportable Monocytes % Not Reportable Eosinophils % Not Reportable Basophils % Not Reportable Absolute Neutrophils Not Reportable Absolute Lymphocytes Not Reportable Absolute Monocytes Not Reportable Absolute Eosinophils Not Reportable Absolute Basophils Not Reportable Sodium 139.4 Potassium 4.1 Chloride 105 Carbon Dioxide 26 Anion Gap 8 BUN 27 H Creatinine 0.59 Est GFR ( Amer) > 60 Est GFR (Non-Af Amer) > 60 Glucose 208 H Calcium 8.7 Impressions: Chest X-Ray 01/24/17 16:45 IMPRESSION: Right lower lobe mass with surrounding atelectasis or pneumonia. Small bilateral pleural effusions. There is scarring in both lung apices. Neoplasm cannot be excluded. Chest/Abdomen CTA 01/24/17 18:01 IMPRESSION: 1. There is a large mass involving the superior segments of the right lower lobe with air bronchograms peripherally. Certainly this may represent neoplasm. It could represent dense consolidation. 2. There is no evidence of pulmonary embolus. Assessment & Plan - Diagnosis (1) Sepsis Qualifiers: Sepsis type: sepsis due to unspecified organism Qualified Code(s): A41.9 - Sepsis, unspecified organism Is this a current diagnosis for this admission?: YesPlan: Resolved. Patient with streptococcus bacteremia and right lower lobe pneumonia Continue antibiotics (2) Pneumonia Qualifiers: Pneumonia type: due to unspecified organism Laterality: right Lung location: lower lobe of lung Qualified Code(s): J18.1 - Lobar pneumonia, unspecified organism Is this a current diagnosis for this admission?: YesPlan: Right lower lobe mass, obstructive pneumonia, will change to oral levaquin. Bronchoscopy tomorrow with Dr Scott (3) Atrial fibrillation Qualifiers: Atrial fibrillation type: paroxysmal Qualified Code(s): I48.0 - Paroxysmal atrial fibrillation Is this a current diagnosis for this admission?: YesPlan: Patient has had a prior history of atrial fibrillation on warfarin. She is presently rate controlled with a supratherapeutic INR (4) Lung mass Is this a current diagnosis for this admission?: YesPlan: Patient with no prior history lung cancer, found to have a 5 cm right lower lobe lung mass. Pulmonary has been consulted. Plan is for bronchoscopy on Monday with Dr Scott. INR 1.39 today. Will hold Warfarin until bronch complete (5) Supratherapeutic INR Is this a current diagnosis for this admission?: YesPlan: Patient's INR is noted to be 15 on admission. Today is 1.39 Will continue to hold Warfarin for upcoming bronchoscopy - Time Time Spent with patient: 25-34 minutes Critical Time spent with patient: 15-24 minutes Medications reviewed and adjusted accordingly: Yes
[2017-01-30] MEDS ORDERED: PREDNISONE 20 MG TABLET PO SCH ×2 (10:00)
[2017-01-30] MEDS: METOPROLOL SUCCINATE 50 MG TAB.SR.24H PO SCH ×2 (10:04→21:14)
[2017-01-30] MEDS: LEVOFLOXACIN 750 MG TABLET PO SCH (10:04)
[2017-01-30] MEDS: GUAIFENESIN 600 MG TABLET.SA PO SCH ×2 (10:05→21:14)
[2017-01-30] MEDS: AMITRIPTYLINE HCL 25 MG TABLET PO SCH (10:05)
[2017-01-30] MEDS: AMLODIPINE BESYLATE 2.5 MG TABLET PO SCH (10:05)
[2017-01-30] MEDS: CEFEPIME HCL 2 GM in DEXTROSE 5%-WATER 50 ML IV SCH (10:10)
--- NOTE | 2017-01-30 21:13 | EKG REPORT ---
SEVERITY:- ABNORMAL ECG - ATRIAL FIBRILLATION, V-RATE 78-144 BORDERLINE T ABNORMALITIES, INFERIOR LEADS : Confirmed by: Makayla Gregg 30-Jan-2017 21:12:35
[2017-01-31] MEDS: IPRATROPIUM/ALBUTEROL 0.5-2.5 MG/3 ML AMPUL NEB SCH ×2 (01:53→07:52)
[2017-01-31] MEDS: DILTIAZEM HCL 60 MG TABLET PO SCH ×4 (02:08→20:13)
[2017-01-31] MEDS ORDERED: LEVALBUTEROL HCL NEB 0.63 MG/3 ML AMPUL NEB PRN (08:43)
[2017-01-31] MEDS ORDERED: PREDNISONE 20 MG TABLET PO SCH (08:51)
--- NOTE | 2017-01-31 09:17 | PROGRESS NOTE E ---
Progress Note NAME: MARTA ROGERS : 1935 AGE: 81Y DATE: 01/31/2017 ROOM: 336 SUBJECTIVE: The patient is lying in bed. She states she feels much better today. The patient is quite eager for discharge. She is awaiting a bronchoscopy. Yesterday afternoon it appears that the patient's heart rate sustained in the 160s and the patient was given an additional dose of beta cathy. The patient continues on her Cardizem as well. Have discontinued the patient's meds and gave the rationale behind that and just made them p.r.n. The patient denies any nausea, vomiting or diarrhea. No shortness of breath, dizziness or chest pain. No fevers or chills. The patient is asymptomatic to her AFib. The patient does not voice any other concerns at this time. REVIEW OF SYSTEMS: The rest of the review of systems is negative. MEDICATIONS: Medications have been reviewed. OBJECTIVE: GENERAL: The patient is an 81-year-old female who is awake, alert, and oriented to person, place, time, and situation. She is verbal, conversational and ambulatory. She does not appear to be in any acute distress. VITAL SIGNS: Temperature is 98.1, pulse 89, respirations 18, blood pressure is 130/68, and oxygen saturation is 94% on room air. SKIN: Warm and dry. There is no rash and she is not diaphoretic. HEENT: Pupils are equal, round and reactive to light and accommodation. Conjunctivae are pink. No JVP. CARDIOVASCULAR: Heart is irregularly irregular. There is no murmur or rub. CHEST: Diminished, clear, symmetrical. ABDOMEN: Soft, nontender, nondistended. BACK: No CVA tenderness or sacral edema. EXTREMITIES: No clubbing, cyanosis or edema. PSYCHIATRIC: Appropriate affect. Pleasant mood. NEUROLOGIC: Grossly intact. DIAGNOSTICS: Lab values are as follows. Hematology obtained on 01/30/2017: WBCs are 15, hemoglobin is 9, hematocrit is 27.3, platelet count is 402,000. Chemistry obtained on 01/30/2017: Sodium is 139, potassium 4.1, chloride 105, carbon dioxide 26, BUN 27, creatinine is 0.59, glucose 208, calcium is 8.7. Microbiology: Blood cultures obtained on 01/27/2017 revealed no growth. IMPRESSION AND PLAN: 1. POSTOBSTRUCTIVE PNEUMONIA OF THE RIGHT LOWER LOBE. The patient will continue current antibiotic therapy. The patient is to undergo bronchoscopy today for mass biopsy. The patient will need to follow up in an outpatient setting. 2. STREPTOCOCCUS BACTEREMIA SECONDARY TO #1 MOST LIKELY. The patient's repeat blood cultures have been unremarkable. Will continue antibiotic therapy and follow. 3. CHRONIC ATRIAL FIBRILLATION WITH ACUTE RAPID VENTRICULAR RESPONSE. The patient is currently rate controlled. Will continue Cardizem as well as metoprolol and follow. 4. CHRONIC ANTICOAGULATION. The patient's INR was supratherapeutic on admission, currently on hold for bronchoscopy. The patient will be resumed on Coumadin. This will need to be monitored closely given the patient will be discharged on Levaquin. 5. HYPERGLYCEMIA. The patient has no history of diabetes. Most likely this is due to steroids. 6. SEPSIS SECONDARY TO BACTEREMIA PNEUMONIA. The patient has cleared lactic acid and is resolved. 7. DVT PROPHYLAXIS. The patient will be resumed on her Coumadin tonight. DISPOSITION: THE PATIENT IS A FULL CODE. Pending the patient's symptomatology and diagnostic findings, will re-evaluate in the a.m. for discharge. Time spent on this followup, including assessment/plan, physical examination, patient education, and family meeting, is 25 minutes. DICTATING PHYSICIAN: THEODORA ALMEIDA NP [id number] PHY#: [id number] ID: [id number] JOB#: [id number] ACCT: [id number] cc: >
[2017-01-31] MEDS: PREDNISONE 10 MG TABLET PO SCH (09:46)
[2017-01-31] MEDS: METOPROLOL SUCCINATE 50 MG TAB.SR.24H PO SCH ×2 (09:46→21:19)
[2017-01-31] MEDS: GUAIFENESIN 600 MG TABLET.SA PO SCH ×2 (09:46→21:19)
[2017-01-31] MEDS: LEVOFLOXACIN 750 MG TABLET PO SCH (09:47)
[2017-01-31] MEDS: AMLODIPINE BESYLATE 2.5 MG TABLET PO SCH (09:47)
[2017-01-31] MEDS: AMITRIPTYLINE HCL 25 MG TABLET PO SCH (09:47)
[2017-01-31] MEDS: CEFEPIME HCL 2 GM in DEXTROSE 5%-WATER 50 ML IV SCH (09:48)
[2017-01-31] MEDS ORDERED: MIDAZOLAM 2 MG/2 ML INJ ONE (11:23)
[2017-01-31] MEDS ORDERED: LIDOCAINE 2% INJ-PF (100 MG/5 ML) SYRINGE ONE (11:23)
[2017-01-31] MEDS ORDERED: FENTANYL CITRATE INJ/PF 100 MCG/2 ML AMPUL ONE (11:23)
[2017-01-31] MEDS ORDERED: PROPOFOL INJ 200 MG/20 ML VIAL IV ONE (11:23)
[2017-01-31] MEDS ORDERED: EPHEDRINE SULFATE INJ 50 MG/1 ML AMPULE ONE (11:24)
[2017-01-31] MEDS ORDERED: SUCCINYLCHOLINE CHLORIDE INJ 200 MG/10 ML VIAL ONE (11:34)
[2017-01-31] MEDS ORDERED: EPINEPHRINE INJ 1 MG/10 ML DISP.SYRIN ONE (12:23)
--- NOTE | 2017-01-31 13:02 | PDOC PROGRESS REPORT ---
Subjective Progress Note for:: 01/31/17 Subjective:: continues to display somewhat flat affect Physical Exam Vital Signs: Temp Pulse Resp BP Pulse Ox 98.1 F 89 18 130/68 H 94 01/31/17 03:56 01/31/17 07:52 01/31/17 07:52 01/31/17 03:56 01/31/17 07:52 Intake & Output 01/30/17 01/31/17 02/01/17 06:59 06:59 06:59 Intake Total 1003 735 Output Total 250 2050 Balance 753 -1315 Weight 55.7 kg 53.4 kg General appearance: PRESENT: no acute distress, cooperative, disheveled, well- developed, well-nourished Head exam: PRESENT: atraumatic, normocephalic Eye exam: PRESENT: conjunctiva pale, EOMI Mouth exam: PRESENT: dry mucosa, neck supple Neck exam: ABSENT: carotid bruit, JVD, lymphadenopathy, thyromegaly Respiratory exam: PRESENT: decreased breath sounds, prolonged expiratory phas, rhonchi, unlabored Cardiovascular exam: PRESENT: irregular rhythm, +S1, +S2 Pulses: PRESENT: normal radial pulses GI/Abdominal exam: PRESENT: normal bowel sounds, soft. ABSENT: distended, guarding, mass, organolmegaly, rebound, tenderness Rectal exam: PRESENT: deferred Musculoskeletal exam: PRESENT: normal inspection Neurological exam: PRESENT: awake Psychiatric exam: PRESENT: flat affect Skin exam: PRESENT: dry, warm Results Laboratory Results: 01/30/17 05:31 01/30/17 05:31 Impressions: Chest X-Ray 01/24/17 16:45 IMPRESSION: Right lower lobe mass with surrounding atelectasis or pneumonia. Small bilateral pleural effusions. There is scarring in both lung apices. Neoplasm cannot be excluded. Chest/Abdomen CTA 01/24/17 18:01 IMPRESSION: 1. There is a large mass involving the superior segments of the right lower lobe with air bronchograms peripherally. Certainly this may represent neoplasm. It could represent dense consolidation. 2. There is no evidence of pulmonary embolus. Assessment & Plan - Diagnosis (1) Atrial fibrillation Qualifiers: Atrial fibrillation type: paroxysmal Qualified Code(s): I48.0 - Paroxysmal atrial fibrillation Is this a current diagnosis for this admission?: YesPlan: stable (2) Lung mass Is this a current diagnosis for this admission?: YesPlan: bronchoscopy today (3) Supratherapeutic INR Is this a current diagnosis for this admission?: YesPlan: resolved
--- NOTE | 2017-01-31 13:12 | Operative Report ---
Operative Report DATE OF SURGERY: 01/31/17 Operative Report: Patient was kept n.p.o. 12 hours prior to procedure consent was reviewed and signed IV access was confirmed. Patient was taken to the bronchoscopy suite they are on anesthesiology rapid sequence induction and subsequent intubation with a #8 endotracheal tube. Then, using a "T" size [employer] bronchoscope her tracheobronchial tree was explored. Minimal splaying of the katerina. There was corrugation of the mucosa throughout the tracheobronchial trees in the left hemithorax as well as the right hemithorax. No other abnormalities are noted in the left hemithorax. There were no abnormalities noted in the right mainstem bronchus. Submucosal swelling and distortion of normal architecture was noted in the right upper lobe ;bronchus right bronchus intermedius; right middle lobe and the right lower lobe. Lavage was taken of the right middle lobe and right lower lobe. Transbronchial biopsies were taken from the right lower lobe. Sandy needle biopsies were taken from the right lower lobe and right bronchus intermedius. Patient tolerated the procedure well post- procedure SaO2 is 99% chest x-ray is in progress at this time. Lavage fluid transbronchial biopsies needle biopsies were sent to the lab for appropriate cultures and studies. PREOPERATIVE DIAGNOSIS: Right lung mass POSTOPERATIVE DIAGNOSIS: Same OPERATION: Fiberoptic bronchoscopy with bronchoalveolar lavage; transbronchial biopsies and Sandy needle biopsies SURGEON: PADMA KING ANESTHESIA: GA TISSUE REMOVED OR ALTERED: Transbronchial biopsies Sandy needle biopsies from right lung COMPLICATIONS: None ESTIMATED BLOOD LOSS: 5 mL INTRAOPERATIVE FINDINGS: Coordination of the mucosa throughout both lung amaya submucosal swelling and distortion of right upper lobe right bronchus intermedius right middle lobe and the right lower lobe
--- NOTE | 2017-01-31 13:33 | RADIOLOGY REPORT (SQ) ---
EXAM DESCRIPTION: CHEST SINGLE VIEW COMPLETED DATE/TIME: 01/31/2017 1:11 pm REASON FOR STUDY: s/p bronchoscopy with lavage r lung COMPARISON: CT angio chest 01/24/2017 AP chest 01/24/2017, 09/01/2013 EXAM PARAMETERS: NUMBER OF VIEWS: One view. TECHNIQUE: Single frontal radiographic view of the chest acquired. RADIATION DOSE: NA LIMITATIONS: None. FINDINGS: LUNGS AND PLEURA: Persistent dense consolidation in the right lower lobe worrisome for pne umonia. There are multiple calcified pleural plaques present with pleural thickening right greater than left. Stable scarring or atelectasis left lateral costophrenic sulcus. No acute left-sided infiltrates. No gross right or left pleural effusion or pneumothorax. MEDIASTINUM AND HILAR STRUCTURES: No masses. Contour normal. HEART AND VASCULAR STRUCTURES: Heart normal in size. Normal vasculature. BONES: No acute findings. HARDWARE: None in the chest. OTHER: No other significant finding. IMPRESSION: Persistent dense consolidation in the right lower lobe. No pneumothorax post bronchosco py. TECHNICAL DOCUMENTATION: JOB ID: [id number]
--- NOTE | 2017-01-31 14:53 | RADIOLOGY REPORT (SQ) ---
EXAM DESCRIPTION: CHEST SINGLE VIEW; NO CHG FLUORO COMPLETED DATE/TIME: 01/31/2017 2:22 pm REASON FOR STUDY: BRONCHOSCOPY WITH BIOPSY ASSISTED WITH FLU0RO RIGHT LUNG COMPARISON: CT chest 01/24/2017 FLUOROSCOPY TIME: 1.2 minutes 3 digital radiographic chest images saved to PACS. TECHNIQUE: Intra-operative images acquired during surgical procedure to evaluate progress. NUMBER OF IMAGES: Cine fluoroscopic images. LIMITATIONS: None. FINDINGS: Intra procedural imaging and fluoro during bronchoscopy performed by Dr. Scott. Multipl e images show the bronchoscope in the right lower lobe bronchus. Please see the operative report for further details. IMPRESSION: Intra procedural imaging and fluoro COMMENT: Quality ID [id number]: Final reports for procedures using fluoroscopy that document radiation exp osure indices, or exposure time and number of fluorographic images (if radiation exposure indices are not available) Please consult full operative report of the attending physician for description of the procedure. TECHNICAL DOCUMENTATION: JOB ID: [id number] [email or web address] All Rights Reserved
[2017-01-31 15:21] LABS: FLUID APPEARANCE CLOUDY; FLUID RBC AVERAGE 160.5; FLUID RBC SIDE 1 159; FLUID RBC SIDE 2 162; FLUID TYPE BRONCHIAL LAVAGE
[2017-01-31 15:22] LABS: FLUID RBC DILUENT USED SALINE; FLUID RBC DILUTION FACTOR 5; TOTAL RBC SQUARES COUNTED FLD 25
[2017-01-31] MEDS ORDERED: WARFARIN SODIUM 3 MG TABLET PO SCH (22:00)
[2017-02-01] MEDS: DILTIAZEM HCL 60 MG TABLET PO SCH (02:05)
[2017-02-01 06:26] LABS: PROTHROMBIN TIME 14.1 SEC (11.4-15.4)
[2017-02-01 07:47] VITALS: BP 137/83
[2017-02-01] MEDS: CEFEPIME HCL 2 GM in DEXTROSE 5%-WATER 50 ML IV SCH (08:51)
[2017-02-01] MEDS: PREDNISONE 10 MG TABLET PO SCH (09:06)
[2017-02-01] MEDS: METOPROLOL SUCCINATE 50 MG TAB.SR.24H PO SCH (09:06)
[2017-02-01] MEDS: LEVOFLOXACIN 750 MG TABLET PO SCH (09:07)
[2017-02-01] MEDS: GUAIFENESIN 600 MG TABLET.SA PO SCH (09:07)
[2017-02-01] MEDS: AMLODIPINE BESYLATE 2.5 MG TABLET PO SCH (09:07)
[2017-02-01] MEDS: AMITRIPTYLINE HCL 25 MG TABLET PO SCH (09:07)
[2017-02-01] MEDS ORDERED: DILTIAZEM HCL 120 MG CAP.SR.24H PO SCH (10:00)
--- NOTE | 2017-02-02 10:14 | DISCHARGE SUMMARY E ---
Discharge Summary NAME: MARTA ROGERS : 1935 AGE: 81Y ADMITTED: 01/24/2017 DISCHARGED: 02/01/2017 CODE STATUS: Full code. CONSULTING ICING COATER: Dr. Scott. PRIMARY CARE PROVIDER: Dr. Soliz. DISCHARGE DIAGNOSES: 1. Right lower lobe pneumonia, felt to be post obstructive. 2. Lung mass. 3. Streptococcus bacteremia secondary to most likely #1. 4. Chronic atrial fibrillation with a rapid ventricular response, now controlled. 5. Chronic anticoagulation for atrial fibrillation. 6. Hyperglycemia. 7. Sepsis secondary to the above, this is resolved. DISCHARGE MEDICATIONS: 1. Coumadin 6 mg p.o. q. hour of sleep. The patient is to follow with primary care provider on Monday for repeat INR given that she will be discharged on antibiotics. 2. Levaquin 750 mg p.o. daily, 6 tablets zero refills. 3. Metoprolol XL 50 mg p.o. q.12 hours. 4. Pravachol 20 mg p.o. q. hour of sleep. 5. Norvasc 2.5 mg p.o. daily. 6. Amitriptyline 25 mg p.o. daily. ACTIVITY: As tolerated. DIET: Heart healthy, as tolerated. HISTORY OF THE PRESENT ILLNESS: The patient is an 81-year-old female with a past medical history of hypertension and coronary artery disease. The patient presented to the emergency department with a chief complaint of shortness of breath. The patient had noted 5 days of increasing shortness of breath as well as productive cough. The patient denied any fevers, chills, nausea, vomiting, dizziness, chest pain. No heart palpitations. Upon presentation to the emergency department the patient was found to have pneumonia with underlying lung mass, supratherapeutic INR, as well as atrial fibrillation with RVR. The patient was started on empirical antibiotic therapy and was referred to the hospitalist for admission and management. HOSPITAL COURSE: The patient was admitted to [facility]. The patient was placed on broad spectrum antibiotic coverage and the patient had improvement in symptoms. The patient's blood cultures did become positive and the patient was treated for this. Repeat blood cultures were negative. The patient underwent bronchoscopy of 01/31/2017 with pathologies still pending at the time of discharge. The patient will followup outpatient with Dr. Curseen for the results of this. The patient was resumed on her Coumadin and did tolerate this well. The patient is agreeable to follow with primary care closely for repeat INR. LABORATORY DATA: Hematology obtained on 01/30/2017; WBC is 15.0, hemoglobin 9.0, hematocrit is 27.3, platelet count is 402,000. Coagulation obtained on 02/01/2017; PT is 14.1, INR is 1.02. Chemistry obtained on 01/30/2017; sodium is 139, potassium 4.1, chloride 105, carbon dioxide 26, BUN 27, creatinine is 0.59, glucose, calcium is 8.7. Lactic acid is 2.0. Random cortisol is 83.7. TSH is 0.99, T4 is 1.86, T3 is 2.52. Bilirubin is 0.7, AST 22, ALT 38, alk-phos 87. CK 108, CK-MB 1.29, troponin is 0.012. Total protein 6.1, albumin 3.2. Urinalysis panel 01/24/2017; color yellow, appearance cloudy, specific gravity is 1.035, protein 100, glucose, ketones trace, , nitrite negative, bilirubin negative, urobilinogen is negative, leukocyte esterase is small, WBC 22, RBC 7, bacteria trace. Other body source obtained on 01/31/2017; bronchial lavage fluids reveals WBC of 28, RBC of 8025 with neutrophils of 28. Serologies; AFB smear revealed no acid-fast. Microbiology; blood cultures sent on 01/24/2017 revealed Streptococcus pneumonia. Blood cultures obtained on 01/27/2017 revealed no growth. Bronchial washings obtained on 01/31/2017 revealed no growth. IMAGING STUDIES: Chest x-ray obtained on 01/24/2017 reveals right lower lobe mass with surrounding atelectasis or pneumonia. Chest and abdominal CTA obtained on 01/24/2017 revealed a large mass involving the superior segments of the right lower lobe with air bronchograms peripherally. No evidence of pulmonary emboli. Chest x-ray obtained on 01/31/2017 reveals stable findings. PHYSICAL EXAMINATION: GENERAL: On examination the patient is a well-developed, well-nourished 81-year-old female who is awake, alert, and oriented to person, place, time, and situation. She is verbal, conversational, ambulatory and does not appear to be in any acute distress. VITAL SIGNS: Temperature is 97.7, pulse 92, respirations 16, blood pressure is 137/83, oxygen saturation is 96% on room air. SKIN: Warm and dry. No rash. She is not diaphoretic. HEENT: Pupils equal, round, react to light and accommodation. Conjunctivae pink. NECK: No JVP. CARDIOVASCULAR SYSTEM: Heart is regular. There is no murmur or rub. CHEST: Clear, symmetric, unlabored. ABDOMEN: Soft, nontender, nondistended. BACK: No CVA tenderness, sacral edema. EXTREMITIES: No clubbing, cyanosis, or edema. DISCHARGE PLAN: 1. The patient is advised to follow with her primary care provider on Monday for repeat INR. 2. The patient is to follow with Dr. Scott for findings of pathology related to the patient's bronchoscopy. TIME SPENT: On this discharge including assessment, plan, physical examination, patient education is 25 minutes. DICTATING PHYSICIAN: THEODORA ALMEIDA NP [id number] PHY#: [id number] ID: [id number] JOB#: [id number] ACCT: [id number] cc:JARRETT MALDONADO M.D., MICHAEL NP > MTDD
== END 2017-02-01 09:33 | disposition home or self-care (01) | DRG 853 ==
LOC: ER 16:23 → EH 19:37 → UNDOADMIN 19:46 → EH 19:46 → 3S 21:40
PROVIDERS: ADMIT Internal Medicine; ATTEND Internal Medicine
PROC: 0BBF8ZX Excision of Right Lower Lung Lobe, Via Natural or Artificial Opening Endoscopic, Diagnostic (ICD-10-PCS; principal; 2017-01-31 11:30)
PROC: 0B9F8ZX Drainage of Right Lower Lung Lobe, Via Natural or Artificial Opening Endoscopic, Diagnostic (ICD-10-PCS; 2017-01-31 11:30)
DX: A40.3 Sepsis due to Streptococcus pneumoniae (principal); J18.1 Lobar pneumonia, unspecified organism; R91.8 Other nonspecific abnormal finding of lung field; I48.2 Chronic atrial fibrillation; E78.5 Hyperlipidemia, unspecified; I10 Essential (primary) hypertension; I25.10 Atherosclerotic heart disease of native coronary artery without angina pectoris; Z79.01 Long term (current) use of anticoagulants; Z79.899 Other long term (current) drug therapy; Z87.891 Personal history of nicotine dependence
CPT/HCPCS: 00520; 31624; 31628; 31629; 36415; 71010; 71275; 80048; 80053; 81001; 82533; 82550; 82553; 83605; 84439; 84443; 84481; 84484; 85025; 85379; 85610; 85730; 87015; 87040; 87070; 87077; 87101; 87116; 87186; 87205; 87206; 88305; 89050; 93005; 93010; 94640; 94660; 94799; 96374; 99285; J0171; J0330; J0456; J0692; J0696; J1720; J1956; J2001; J2250; J2704; J3010; J3430; J3475; J3490; J7030; J7040; J7512; J7620

== ENCOUNTER 2017-02-18 11:12 | Inpatient (IN) | payer MEDICARE, BC ==
[2017-02-18] MEDS ORDERED: ALBUTEROL SULFATE 0.083% NEB 2.5 MG/3 ML AMPUL NEB ONE (11:24)
--- NOTE | 2017-02-18 11:24 | ER Document Report ---
ED Medical Screen (RME) - General Chief Complaint: Shortness Of Breath Stated Complaint: DIFFICULTY BREATHING Time Seen by Provider: 02/18/17 11:23 Mode of Arrival: Wheelchair Information source: Patient TRAVEL OUTSIDE OF THE [place] IN LAST 30 DAYS: No - HPI Patient complains to provider of: Breathing, short of breath Onset: Other - 2-3 days Notes: 02/18/17 11:23 Patient is an 81-year-old female who presents to the emergency room complaining of difficulty breathing and shortness of breath 2-3 days, she has a history of COPD and used her inhaler at home at 1030 this morning with minimal relief, she is not a smoker but there are smokers in the family, she was recently admitted to the hospital for pneumonia approximately 1 month ago - Related Data Allergies/Adverse Reactions: No Known Allergies Allergy (Verified 02/18/17 11:22) Past Medical History - Social History Family history: None - Past Medical History Cardiac Medical History: Reports: Hx Hypercholesterolemia, Hx Hypertension Pulmonary Medical History: Denies: Hx Tuberculosis Renal/ Medical History: Denies: Hx Peritoneal Dialysis Psychiatric Medical History: Denies: Hx Depression - Immunizations Hx Diphtheria, Pertussis, Tetanus Vaccination: No - UNK
--- NOTE | 2017-02-18 11:52 | ER Document Report ---
ED General - General Mode of Arrival: Wheelchair Information source: Patient, Relative - son TRAVEL OUTSIDE OF THE [place] IN LAST 30 DAYS: No - HPI Patient complains to provider of: shortness of breath and right ankle swelling Onset: Other - see notes above Associated symptoms: Other - see notes above Exacerbated by: Other - exertion <EN SALVADOR - Last Filed: 02/18/17 14:12> <ZACHARY TROY - Last Filed: 02/18/17 14:20> - General Chief Complaint: Shortness Of Breath Stated Complaint: DIFFICULTY BREATHING Time Seen by Provider: 02/18/17 11:23 Notes: 81-year-old female with history of [place], atrial fibrillation, hypertension, hyperlipidemia, and pneumonia presents to the ED complaining of shortness of breath has been present since her last episode with pneumonia 1 month ago, but worsened yesterday and right ankle swelling that started yesterday. Patient's sons report that the patient has been having increased shortness of breath since her last episode of pneumonia. Patient is short of breath with exertion since having pneumonia. Since yesterday, patient has also been increasingly short of breath when laying flat on her back. Patient is not on any fluid pills. Patient denies fever or chest pain. Patient is on Coumadin and has not missed any doses. (EN SALVADOR) - Related Data Allergies/Adverse Reactions: No Known Allergies Allergy (Verified 02/18/17 11:22) Past Medical History - General Information source: Patient - Social History Smoking Status: Former Smoker Chew tobacco use (# tins/day): Yes Frequency of alcohol use: None Drug Abuse: None Family History: Reviewed & Not Pertinent Patient has suicidal ideation: No Patient has homicidal ideation: No - Past Medical History Cardiac Medical History: Reports: Hx Heart Attack, Hx Hypercholesterolemia, Hx Hypertension Denies: Hx Congestive Heart Failure, Hx DVT Pulmonary Medical History: Reports: Hx Pneumonia Denies: Hx COPD, Hx Tuberculosis Endocrine Medical History: Denies: Hx Diabetes Mellitus Type 2 Renal/ Medical History: Denies: Hx Peritoneal Dialysis Psychiatric Medical History: Denies: Hx Depression Past Surgical History: Reports: Hx Coronary Stent - Immunizations Hx Diphtheria, Pertussis, Tetanus Vaccination: No - UNK <EN SALVADOR - Last Filed: 02/18/17 14:12> Review of Systems - Review of Systems Constitutional: No symptoms reported. denies: Fever EENT: No symptoms reported Cardiovascular: No symptoms reported. denies: Chest pain Respiratory: See HPI, Short of breath Gastrointestinal: No symptoms reported Genitourinary: No symptoms reported Female Genitourinary: No symptoms reported Musculoskeletal: See HPI, Joint swelling - right ankle Skin: No symptoms reported Hematologic/Lymphatic: No symptoms reported Neurological/Psychological: No symptoms reported -: Yes All other systems reviewed and negative <EN SALVADOR - Last Filed: 02/18/17 14:12> Physical Exam <EN SALVADOR - Last Filed: 02/18/17 14:12> <ZACHARY TROY - Last Filed: 02/18/17 14:20> - Vital signs Vitals: Temp Pulse Resp BP Pulse Ox 97.2 F 120 H 24 H 98/79 L 89 L 02/18/17 11:20 02/18/17 11:20 02/18/17 11:20 02/18/17 11:20 02/18/17 11:20 - Notes Notes: GENERAL: Alert, interacts well. No acute distress. HEAD: Normocephalic, atraumatic. EYES: Pupils equal, round, and reactive to light. Extraocular movements intact. ENT: Oral mucosa moist, tongue midline. NECK: Full range of motion. Supple. Trachea midline. LUNGS: Trace crackles to the bilateral lower lobes. No wheezes, rales, or rhonchi. No respiratory distress. No decreased air movements. HEART: Tachycardic and irregularly irregular. No murmurs, gallops, or rubs. ABDOMEN: Soft, non-tender. Non-distended. Bowel sounds present in all 4 quadrants. EXTREMITIES: Moves all 4 extremities spontaneously. Radial and dorsalis pedis pulses 2/4 bilaterally. No cyanosis. 1+ pitting edema to the right ankle, no edema to the left ankle or to the bilateral pre-tibial areas. NEUROLOGICAL: Alert and oriented x3. Normal speech. PSYCH: Normal affect, normal mood. SKIN: Warm and dry. No rashes or lesions noted. (EN SALVADOR) Course - Laboratory Result Diagrams: 02/18/17 11:35 02/18/17 11:35 - Consults Dr. Alamo Time consulted: 13:33 <EN SALVADOR - Last Filed: 02/18/17 14:12> - Laboratory Result Diagrams: 02/18/17 11:35 02/18/17 11:35 <ZACHARY TROY - Last Filed: 02/18/17 14:20> - Re-evaluation Re-evalutation: 02/18/17 13:39 CBC shows anemia with hemoglobin 10.6, there is a lymphocytosis, INR subtherapeutic at 1.84, venous blood gas is within normal range, chemistries grossly unremarkable slightly elevated glucose, cardiac enzymes negative, chest x-ray shows interval decrease in size of mass that was seen in January. Does show bibasilar atelectasis versus pneumonia. Given the hypoxia, the subjective fevers at home and the decreasing exercise tolerance I favor pneumonia. Patient will be treated with Rocephin and azithromycin. After receiving a breathing treatment she is no longer hypoxic. Please disregard the oxygen saturation recorded at 79% on room air, this was read during a poor waveform. After the breathing treatment her oxygen saturation is 93% on room air. She was bolused a liter for her A. fib with relatively rapid ventricular response ranging between 120s and 150s beats per minute. Discussed the case with Dr. Alamo who agrees to accept the patient to his service and admission status to the [facility]. (ZACHARY TROY) - Vital Signs Vital signs: Temp Pulse Resp BP Pulse Ox 97.2 F 120 H 22 H 110/90 H 78 L 02/18/17 11:20 02/18/17 11:20 02/18/17 13:01 02/18/17 13:00 02/18/17 12:59 - Laboratory Laboratory results interpreted by me: 02/18/17 02/18/17 02/18/17 11:35 11:35 11:35 Hgb 10.6 L Hct 33.6 L MCHC 31.7 L RDW 17.3 H Lymphocytes % 12.3 L PT 22.3 H Sodium 136.4 L Potassium 5.1 H Carbon Dioxide 21 L Glucose 141 H Creatine Kinase 21 L - EKG Interpretation by Me Additional EKG results interpreted by me: 02/18/17 13:39 EKG shows atrial fibrillation with rapid ventricular response at a rate of 133, normal axis, normal intervals, no ST segment elevations or depressions, there are T-wave inversions noted in lead III per my interpretation. (ZACHARY TROY) - Consults Dr. Alamo Reason for consultation: 02/18/17 13:33 Patient was discussed with Dr. Alamo and agrees to admit the patient to IMCU. ( EN SALVADOR) Discharge <EN SALVADOR - Last Filed: 02/18/17 14:12> - Discharge Admitting Provider: Daniela Alamo Unit Admitted: IMCU <ZACHARY TROY - Last Filed: 02/18/17 14:20> - Discharge Clinical Impression: Subtherapeutic international normalized ratio (INR) Pneumonia Qualifiers: Pneumonia type: due to unspecified organism Laterality: bilateral Lung location : lower lobe of lung Qualified Code(s): J18.9 - Pneumonia, unspecified organism Atrial fibrillation Qualifiers: Atrial fibrillation type: chronic Qualified Code(s): I48.2 - Chronic atrial fibrillation Condition: Fair Disposition: ADMITTED INPATIENT Scribe Attestation: 02/18/17 14:20 I personally performed the services described in the documentation, reviewed and edited the documentation which was dictated to the scribe in my presence, and it accurately records my words and actions. (ZACHARY TROY) Scribe Documentation - Scribe Written by Scribe:: Doe Craven, 02/18/2017 [id number] acting as scribe for :: [place] <EN SALVADOR - Last Filed: 02/18/17 14:12>
[2017-02-18 12:02] LABS: ABSOLUTE BASOPHILS # (AUTO) 0.1 10^3/uL (0.0-0.2); ABSOLUTE LYMPHOCYTES (AUTO) 1.1 10^3/uL (0.5-4.7); ABSOLUTE MONOCYTES (AUTO) 0.9 10^3/uL (0.1-1.4); ABSOLUTE NEUT (AUTO) 6.6 10^3/uL (1.7-8.2); BASOPHILS % (AUTO) 0.8 % (0-2); EOSINOPHILS % (AUTO) 0.2 % (0-6); HEMATOCRIT 33.6 % (36.0-47.0); HEMOGLOBIN 10.6 g/dL (12.0-15.5); HGB HCT DIFFERENCE -1.8; LYMPHOCYTES % (AUTO) 12.3 % (13-45); MEAN CORPUSCULAR HEMOGLOBIN 28.2 pg (27.0-33.4); MEAN CORPUSCULAR HGB CONC 31.7 g/dL (32.0-36.0); MEAN CORPUSCULAR VOLUME 89 fl (80-97); MONOCYTES % (AUTO) 10.9 % (3-13); RED BLOOD COUNT 3.77 10^6/uL (3.72-5.28); RED CELL DISTRIBUTION WIDTH 17.3 % (11.5-14.0); SEGMENTED NEUTROPHILS % (AUTO) 75.8 % (42-78); VENOUS BLOOD BASE EXCESS 1.9 mmol/L; VENOUS BLOOD HCO3 26.8 mmol/L (20-32); VENOUS BLOOD PCO2 43.4 mmHg (35-63); VENOUS BLOOD PH 7.41 (7.30-7.42); WHITE BLOOD COUNT 8.7 10^3/uL (4.0-10.5)
[2017-02-18 12:06] LABS: PROTHROMBIN TIME 22.3 SEC (11.4-15.4)
[2017-02-18 12:20] LABS: ALANINE AMINOTRANSFERASE 25 U/L (9-52); ALBUMIN 3.6 g/dL (3.5-5.0); ALKALINE PHOSPHATASE 105 U/L (38-126); ANION GAP 14 (5-19); ASPARTATE AMINO TRANSFERASE 22 U/L (14-36); BILIRUBIN,DIRECT 0.4 mg/dL (0.0-0.4); BILIRUBIN,TOTAL 0.7 mg/dL (0.2-1.3); BLOOD UREA NITROGEN 18 mg/dL (7-20); CALCIUM 9.3 mg/dL (8.4-10.2); CARBON DIOXIDE 21 mmol/L (22-30); CHLORIDE 101 mmol/L (98-107); CREATINE KINASE 21 U/L (30-135); CREATININE RESULT 0.76 mg/dL (0.52-1.25); GLUCOSE 141 mg/dL (75-110); POTASSIUM 5.1 mmol/L (3.6-5.0); SODIUM 136.4 mmol/L (137-145); TOTAL PROTEIN 6.9 g/dL (6.3-8.2)
[2017-02-18 12:31] LABS: CREATINE KINASE MB 0.98 ng/mL (<4.55)
[2017-02-18 12:33] LABS: TROPONIN I < 0.012 ng/mL
--- NOTE | 2017-02-18 12:58 | RADIOLOGY REPORT (SQ) ---
EXAM DESCRIPTION: CHEST PA/LAT COMPLETED DATE/TIME: 02/18/2017 12:46 pm REASON FOR STUDY: db COMPARISON: CT chest 01/24/2017 Chest x-ray 01/31/2017, 01/24/2017, 09/01/2013 EXAM PARAMETERS: NUMBER OF VIEWS: two views TECHNIQUE: Digital Frontal and Lateral radiographic views of the chest acquired. RADIATION DOSE: NA LIMITATIONS: none FINDINGS: LUNGS AND PLEURA: Round masslike density in the right lower lobe seen on chest x-ray 2016 is smaller on the current study, measuring about 5 cm in diameter (was about 7 to 8 cm in diamet er on chest x-ray 01/31/2017). On today's study, there are small bilateral pleural effusions with patchy bibasilar airspace disease atelectasis versus pneumonia. Stable biapical pleural-parenchymal scarring. No pneumothorax. MEDIASTINUM AND HILAR STRUCTURES: No masses or contour abnormalities. HEART AND VASCULAR STRUCTURES: Heart normal size. No evidence for failure. BONES: No acute findings. HARDWARE: None in the chest. OTHER: No other significant finding. IMPRESSION: Decrease in size of mass versus infiltrate in the right lower lobe compared to films January 2017. Interval development of small bilateral pleural effusions with bibasilar airspace disease atelectasis versus pneumonia. TECHNICAL DOCUMENTATION: JOB ID: [id number]- All Rights Reserved
[2017-02-18] MEDS ORDERED: NORMAL SALINE 1000 ML 1,000 ML IV ONE (13:16)
[2017-02-18] MEDS ORDERED: CEFTRIAXONE 1 GM/D5W RTU 50 ML IV ONE (13:18)
[2017-02-18] MEDS ORDERED: AZITHROMYCIN INJ 500 MG VIAL IV ONE (13:18)
[2017-02-18] MEDS ORDERED: ACETAMINOPHEN 325 MG TABLET PO PRN (14:22)
[2017-02-18] MEDS ORDERED: ONDANSETRON HCL INJ/PF 4 MG/2 ML SDV IV PRN (14:22)
[2017-02-18 14:27] LABS: APPEARANCE,URINE SLIGHTLY-CLOUDY; BILIRUBIN,URINE NEGATIVE (NEGATIVE); GLUCOSE, URINE NEGATIVE (NEGATIVE); KETONES,URINE NEGATIVE (NEGATIVE); LEUKOCYTE ESTERASE,URINE NEGATIVE (NEGATIVE); NITRITE,URINE NEGATIVE (NEGATIVE); PROTEIN,URINE 30 mg/dL (NEGATIVE); URINE SPECIFIC GRAVITY 1.011; UROBILINOGEN,URINE NEGATIVE mg/dL (<2.0)
[2017-02-18] MEDS ORDERED: DIGOXIN INJ 0.5 MG/2 ML AMPULE IV ONE ×2 (14:30→20:00)
--- NOTE | 2017-02-18 14:42 | PDOC H&P ---
History of Present Illness Admission Date/PCP: 02/18/17 14:06 DONA WHITLOCK MD Patient complains of: Shortness of breath History of Present Illness: MARTA ROGERS is a 81 year old female with past medical history of atrial fibrillation, coronary artery disease, right lung mass presents with 1 day increasing shortness of breath. She denies fevers or chills. It is notable that she was admitted to the hospital from 01/24/2017 until 02/01/2017 for streptococcal pneumonia and right lower lung mass. Patient was discharged home on oral Levaquin and completed a course of antibiotics a few days ago. With regard to patient's lower lung mass this was diagnosed during recent hospitalization. Patient underwent bronchoscopy on 01/31/[address] Scott and pathology was negative for malignancy. Medications have not been verified. Past Medical History Cardiac Medical History: Reports: Atrial Fibrillation, Coronary Artery Disease, Myocardial Infarction, Hyperlipidema, Hypertension Denies: Congestive Heart Failure, DVT Pulmonary Medical History: Reports: Pneumonia, Other - Right lower lobe mass Denies: Chronic Obstructive Pulmonary Disease (COPD), Tuberculosis Endocrine Medical History: Denies: Diabetes Mellitus Type 2 Psychiatric Medical History: Denies: Depression Past Surgical History Past Surgical History: Reports: Coronary Stent Social History Information Source: Patient Lives with: Family Smoking Status: Former Smoker Frequency of Alcohol Use: None Hx Recreational Drug Use: No Hx Prescription Drug Abuse: No - Advance Directive Resuscitation Status: Full Code Surrogate healthcare decision maker:: Ash Rogers Family History Family History: COPD Parental Family History Reviewed: Yes Children Family History Reviewed: Yes Sibling(s) Family History Reviewed.: Yes Medication/Allergy Allergies/Adverse Reactions: No Known Allergies Allergy (Verified 02/18/17 11:22) Review of Systems Constitutional: PRESENT: weakness. ABSENT: chills, fever(s), headache(s), weight gain, weight loss Eyes: ABSENT: visual disturbances Ears: ABSENT: hearing changes Cardiovascular: ABSENT: chest pain, dyspnea on exertion, edema, orthropnea, palpitations Respiratory: PRESENT: dyspnea. ABSENT: cough, hemoptysis Gastrointestinal: ABSENT: abdominal pain, constipation, diarrhea, hematemesis, hematochezia, nausea, vomiting Genitourinary: ABSENT: dysuria, hematuria Musculoskeletal: ABSENT: joint swelling Integumentary: ABSENT: rash, wounds Neurological: ABSENT: abnormal gait, abnormal speech, confusion, dizziness, focal weakness, syncope Psychiatric: ABSENT: anxiety, depression, homidical ideation, suicidal ideation Endocrine: ABSENT: cold intolerance, heat intolerance, polydipsia, polyuria Hematologic/Lymphatic: ABSENT: easy bleeding, easy bruising Physical Exam Vital Signs: Temp Pulse Resp BP Pulse Ox 97.2 F 120 H 22 H 110/90 H 78 L 02/18/17 11:20 02/18/17 11:20 02/18/17 13:01 02/18/17 13:00 02/18/17 12:59 PHYSICAL EXAM: GENERAL: Appears well, no acute distress HEENT: Normocephalic, no scleral icterus, conjunctiva clear, EOEM intact, PERRLA , moist mucous membranes NECK: trachea midline, no thyromegally RESPIRATORY: Crackles in bilateral posterior lower lung amaya CARDIAC: Irregular, tachycardic ABDOMEN: Soft, no distension, no tenderness, no guarding, normal bowel sounds, negative [place] sign RECTAL: deferred : deferred EXTREMITIES: No edema, cyanosis, clubbing MUSCULOSKELETAL: No joint swelling or deformity VASCULAR: normal peripheral pulses NEUROLOGIC: Alert, oriented to person/place/time, normal speech, cranial nerves grossly intact, 5/5 strength in all extremities, tactile sensation intact in all extremities SKIN: No rash, no wounds, no worrisome skin lesions PSYCHIATRIC: Normal mood, normal affect Results Laboratory Results: Labs- All tests 24 hr 02/18/17 02/18/17 02/18/17 11:35 11:35 11:35 WBC 8.7 RBC 3.77 Hgb 10.6 L Hct 33.6 L MCV 89 MCH 28.2 MCHC 31.7 L RDW 17.3 H Plt Count 329 Seg Neutrophils % 75.8 Lymphocytes % 12.3 L Monocytes % 10.9 Eosinophils % 0.2 Basophils % 0.8 Absolute Neutrophils 6.6 Absolute Lymphocytes 1.1 Absolute Monocytes 0.9 Absolute Eosinophils 0.0 Absolute Basophils 0.1 PT INR VBG pH VBG pCO2 VBG HCO3 VBG Base Excess Sodium 136.4 L Potassium 5.1 H Chloride 101 Carbon Dioxide 21 L Anion Gap 14 BUN 18 Creatinine 0.76 Est GFR ( Amer) > 60 Est GFR (Non-Af Amer) > 60 Glucose 141 H Calcium 9.3 Total Bilirubin 0.7 Direct Bilirubin 0.4 Indirect Bilirubin Not Reportable Neonat Total Bilirubin Not Reportable AST 22 ALT 25 Alkaline Phosphatase 105 Creatine Kinase 21 L CK-MB (CK-2) 0.98 Troponin I < 0.012 Total Protein 6.9 Albumin 3.6 Urine Color Urine Appearance Urine pH Ur Specific [place] Urine Protein Urine Glucose (UA) Urine Ketones Urine Blood Urine Nitrite Urine Bilirubin Urine Urobilinogen Ur Leukocyte Esterase Urine WBC (Auto) Urine RBC (Auto) U Hyaline Cast (Auto) Urine Bacteria (Auto) Squamous Epi Cells Auto U Non-Squamous Epis Auto Urine Mucus (Auto) Urine Ascorbic Acid 02/18/17 02/18/17 02/18/17 11:35 11:35 13:38 WBC RBC Hgb Hct MCV MCH MCHC RDW Plt Count Seg Neutrophils % Lymphocytes % Monocytes % Eosinophils % Basophils % Absolute Neutrophils Absolute Lymphocytes Absolute Monocytes Absolute Eosinophils Absolute Basophils PT 22.3 H INR 1.84 VBG pH 7.41 VBG pCO2 43.4 VBG HCO3 26.8 VBG Base Excess 1.9 Sodium Potassium Chloride Carbon Dioxide Anion Gap BUN Creatinine Est GFR ( Amer) Est GFR (Non-Af Amer) Glucose Calcium Total Bilirubin Direct Bilirubin Indirect Bilirubin Neonat Total Bilirubin AST ALT Alkaline Phosphatase Creatine Kinase CK-MB (CK-2) Troponin I Total Protein Albumin Urine Color YELLOW Urine Appearance SLIGHTLY-CLOUDY Urine pH 6.0 Ur Specific [place] 1.011 Urine Protein 30 H Urine Glucose (UA) NEGATIVE Urine Ketones NEGATIVE Urine Blood NEGATIVE Urine Nitrite NEGATIVE Urine Bilirubin NEGATIVE Urine Urobilinogen NEGATIVE Ur Leukocyte Esterase NEGATIVE Urine WBC (Auto) 4 Urine RBC (Auto) 1 U Hyaline Cast (Auto) 1 Urine Bacteria (Auto) TRACE Squamous Epi Cells Auto 7 U Non-Squamous Epis Auto 1 Urine Mucus (Auto) OCC Urine Ascorbic Acid NEGATIVE Impressions: Chest X-Ray 02/18/17 11:24 IMPRESSION: Decrease in size of mass versus infiltrate in the right lower lobe compared to films from January 2017. Interval development of small bilateral pleural effusions with bibasilar airspace disease atelectasis versus pneumonia. Assessment & Plan - Diagnosis (1) Atrial fibrillation with rapid ventricular response Is this a current diagnosis for this admission?: YesPlan: Case discussed with Dr. Lowe of cardiology. Given patient's hypotension she will be given a one-time dose of digoxin 0.25 mg IV. Admit to IMCU. Consult cardiology. Check CTA of chest to rule out pulmonary embolism given subtherapeutic INR. Treat possible recurrent healthcare associated pneumonia. (2) Pneumonia Qualifiers: Pneumonia type: due to unspecified organism Laterality: bilateral Lung location: lower lobe of lung Qualified Code(s): J18.9 - Pneumonia, unspecified organism Is this a current diagnosis for this admission?: YesPlan: Patient recently completed antibiotic treatment for streptococcal pneumonia. Given the fact that she was recently hospitalized we must consider healthcare associated organisms/gram-negative organisms. Start IV cefepime and IV Levaquin. Check blood and sputum cultures. (3) Hypertension Is this a current diagnosis for this admission?: YesPlan: Hold Norvasc and metoprolol secondary to hypotension (4) Hypotension Is this a current diagnosis for this admission?: YesPlan: Possibly secondary to early pneumonia. Possibly secondary to atrial fibrillation with rapid ventricular response. We will also check CTA of chest to rule out pulmonary embolism. Hold blood pressure medicines. Give 1 L normal saline bolus. (5) Coronary artery disease Is this a current diagnosis for this admission?: Yes (6) Subtherapeutic international normalized ratio (INR) Is this a current diagnosis for this admission?: YesPlan: Continue Coumadin 6 mg nightly. Monitor INR closely while on broad-spectrum antibiotic. (7) Lung mass Is this a current diagnosis for this admission?: YesPlan: Repeat chest CT. Bronchoscopy performed on 01/31/[address] Scott with pathology negative for malignancy. Consult Dr. Scott. - Time Time Spent: Greater than 70 Minutes
[2017-02-18] MEDS ORDERED: LEVOFLOXACIN 750 MG/D5W RTU 750 MG/150 ML RTUPB IV SCH (15:00)
[2017-02-18] MEDS ORDERED: DOXYCYCLINE HYCLATE 100 MG TABLET PO SCH (15:00)
--- NOTE | 2017-02-18 15:51 | RADIOLOGY REPORT (SQ) ---
EXAM DESCRIPTION: CTA CHEST COMPLETED DATE/TIME: 02/18/2017 2:59 pm REASON FOR STUDY: dyspnea, lung mass COMPARISON: CT angio chest 01/24/2017 Chest films 02/18/2017, 01/31/2017, 01/24/2017 TECHNIQUE: CT scan of the chest performed using helical scanning technique with dynamic intravenous contrast injection. Images reviewed with lung, soft tissue and bone windows. Reconstructed coronal and sagittal MPR images reviewed. Additional 3 dimensional post-processing performed to develop Maximal Intensity Projection images (VA P). All images stored on PACS. All CT scanners at this facility use dose modulation, iterative reconstruction, and/or weight based d osing when appropriate to reduce radiation dose to as low as reasonably achievable (ALARA). [facility]: Dose Right [facility]: CareDose [facility]: Dose Right [facility]: Teradose 4D [facility]: Personal [employer] Systems CONTRAST TYPE AND DOSE: contrast/concentration: Isovue 370.00 mg/ml; Total Contrast Delivered: 62.0 ml; Total Saline Delivered: 102.0 ml RENAL FUNCTION: Creatinine 0.76 RADIATION DOSE: 37.47 . LIMITATIONS: None. FINDINGS: LUNGS AND PLEURA: There are mild bilateral pleural effusions, new compared to prior chest CT 01/24/2017. On today's exam, partial collapse with consolidation in the right lower lobe is present. This is les s extensive than on 01/24/2017 suggesting that this represents atelectasis or pneumonia rather than tu mor. At the left lung base there is minimal atelectasis in the dependent portion left lower lobe. Lungs a re otherwise free of significant infiltrates. No pneumothorax AORTA AND GREAT VESSELS: There is atherosclerotic irregularity with soft plaque or mural thrombus jimmy ng the descending thoracic aorta, best shown on series 203, image 7. No dissection. No thoracic aor tic aneurysm. HEART: No pericardial effusion. PULMONARY ARTERIES: No emboli visualized in the main pulmonary arteries or the segmental branches. HILAR AND MEDIASTINAL STRUCTURES: 1.2 x 1.4 cm pretracheal lymph node likely reactive HARDWARE: None in the chest. UPPER ABDOMEN: No significant findings. Limited exam. THYROID AND OTHER SOFT TISSUES: No masses. No adenopathy. BONES: No acute or significant finding. 3D MIPS: Confirm above findings. OTHER: No other significant finding. IMPRESSION: Moderate bilateral pleural effusions Consolidation in the right lower lobe is less prominent than in January, suggesting against tumor. Mural thrombus along the descending thoracic aorta without evidence of thoracic aortic dissection or aneurysm No CT angio evidence of acute pulmonary emboli. TECHNICAL DOCUMENTATION: JOB ID: [id number] Quality ID # [id number]: Final reports with documentation of one or more dose reduction techniques (e.g., Au tomated exposure control, adjustment of the mA and/or kV according to patient size, use of iterative reconstruction technique) 2010 [employer]- All Rights Reserved
[2017-02-18] MEDS: CEFEPIME HCL 1 GM in DEXTROSE 5%-WATER 50 ML IV SCH (17:12)
[2017-02-18] MEDS ORDERED: CEFEPIME 1 GM/D5W RTU 1 GM/50 ML RTUPB IV SCH (18:00)
[2017-02-18] MEDS ORDERED: DILTIAZEM HCL 30 MG TABLET PO SCH (18:00)
[2017-02-18 19:48] LABS: ADD ON TESTING BLD IN LAB ACKNOWLEDGE
[2017-02-18] MEDS ORDERED: LIDOCAINE 1% INJ-PF (10 MG/ML) 30 ML SDV ONE (20:17)
[2017-02-18 20:19] LABS: MAGNESIUM 2.1 mg/dL (1.6-2.3)
[2017-02-18] MEDS: DILTIAZEM HCL/D5W 125 ML IV PRN (20:30)
--- NOTE | 2017-02-18 22:03 | OPERATIVE REPORT E ---
Operative Report NAME: MARTA ROGERS : 1935 AGE: 81Y DATE OF SURGERY: 02/18/2017 ROOM: 309 PREOPERATIVE DIAGNOSIS: Patient has atrial fibrillation and needed central line for Cardizem. POSTOPERATIVE DIAGNOSIS: Patient has atrial fibrillation and needed central line for Cardizem. OPERATION: Placement of femoral vein catheter under ultrasound guidance. SURGEON: TARIQ SCHWARTZ M.D. ANESTHESIA: Local. PROCEDURE: The patient was placed in a slightly reversed Trendelenburg and the right groin prepped and draped in the usual sterile fashion. With the use of the ultrasound, the femoral vein was then identified. It was subsequently punctured and guidewire passed through the needle into the area of the inferior vena cava. The needle was removed and the puncture site enlarged with a #11 blade and also dilated with a catheter dilators. The dilator was removed and a triple lumen catheter inserted through the guidewire and inserted almost all the way through the hub of the catheter. The catheter was then anchored to the skin with 3-0 silk. A Biopatch was placed at the insertion site and a sterile dressing was placed over it. All the 3 ports were aspirated easily with blood and irrigated with saline. Sterile dressings were placed over the operative site. The patient tolerated the procedure well. DICTATING PHYSICIAN: TARIQ SCHWARTZ M.D. [id number] PHY#: [id number] ID: [id number] JOB#: [id number] ACCT: [id number] cc:TARIQ SCHWARTZ M.D. >
[2017-02-18] MEDS: WARFARIN SODIUM 3 MG TABLET PO SCH (22:25)
[2017-02-18] MEDS: ATORVASTATIN CALCIUM 10 MG TABLET PO SCH (22:26)
[2017-02-18] MEDS: METOPROLOL TARTRATE 50 MG TABLET PO SCH (22:35)
[2017-02-19] MEDS: DILTIAZEM HCL/D5W 125 ML IV PRN (03:28)
[2017-02-19] MEDS: CEFEPIME HCL 1 GM in DEXTROSE 5%-WATER 50 ML IV SCH (05:08)
[2017-02-19 05:25] LABS: PROTHROMBIN TIME 28.9 SEC (11.4-15.4)
[2017-02-19 05:26] LABS: ABSOLUTE EOSINOPHILS # (AUTO) 0.1 10^3/uL (0.0-0.6); ABSOLUTE LYMPHOCYTES (AUTO) 1.2 10^3/uL (0.5-4.7); ABSOLUTE MONOCYTES (AUTO) 1.1 10^3/uL (0.1-1.4); ABSOLUTE NEUT (AUTO) 5.3 10^3/uL (1.7-8.2); BASOPHILS % (AUTO) 0.3 % (0-2); EOSINOPHILS % (AUTO) 0.9 % (0-6); HEMATOCRIT 27.6 % (36.0-47.0); HEMOGLOBIN 8.9 g/dL (12.0-15.5); HGB HCT DIFFERENCE -0.9; LYMPHOCYTES % (AUTO) 15.3 % (13-45); MEAN CORPUSCULAR HEMOGLOBIN 28.4 pg (27.0-33.4); MEAN CORPUSCULAR HGB CONC 32.1 g/dL (32.0-36.0); MEAN CORPUSCULAR VOLUME 88 fl (80-97); MONOCYTES % (AUTO) 14.1 % (3-13); RED BLOOD COUNT 3.12 10^6/uL (3.72-5.28); RED CELL DISTRIBUTION WIDTH 16.8 % (11.5-14.0); SEGMENTED NEUTROPHILS % (AUTO) 69.4 % (42-78); WHITE BLOOD COUNT 7.6 10^3/uL (4.0-10.5)
[2017-02-19 05:33] LABS: ANION GAP 7 (5-19); BLOOD UREA NITROGEN 13 mg/dL (7-20); CARBON DIOXIDE 25 mmol/L (22-30); CHLORIDE 103 mmol/L (98-107); CREATININE RESULT 0.61 mg/dL (0.52-1.25); GLUCOSE 107 mg/dL (75-110); SODIUM 134.7 mmol/L (137-145)
[2017-02-19 05:40] LABS: POTASSIUM 3.8 mmol/L (3.6-5.0)
[2017-02-19 09:18] LABS: FOLATE 7.58 ng/mL (>2.76)
[2017-02-19] MEDS: AMITRIPTYLINE HCL 25 MG TABLET PO SCH (09:28)
[2017-02-19] MEDS: METOPROLOL TARTRATE 50 MG TABLET PO SCH ×2 (09:28→22:44)
[2017-02-19] MEDS: LEVOFLOXACIN 750 MG TABLET PO SCH (10:23)
[2017-02-19] MEDS: DILTIAZEM HCL 60 MG TABLET PO SCH ×2 (10:37→17:32)
--- NOTE | 2017-02-19 11:33 | PDOC PROGRESS REPORT ---
Subjective Progress Note for:: 02/19/17 Subjective:: Patient seems to be doing better with gradual improvement. Pt is denying any chest arm or neck discomfort. Patient denying any PND, orthopnea. Patient denied any sustained palpitations, dizziness, syncope, near syncope. Patient denying any fever chills. Patient denying any other significant discomfort. Patient is maintaining chronic atrial fibrillation Review of systems: Rest review of systems negative. Medications: Medications have been reviewed. Physical Exam Vital Signs: Temp Pulse Resp BP Pulse Ox 98.0 F 68 18 108/60 94 02/19/17 04:51 02/19/17 10:25 02/19/17 04:51 02/19/17 10:25 02/19/17 04:00 Intake & Output 02/18/17 02/19/17 02/20/17 06:59 06:59 06:59 Intake Total 892 Balance 892 Weight 54.8 kg Exam: GENERAL: well-nourished and in no acute distress. Alert and oriented x3 HEAD: Atraumatic, normocephalic. EYES: Pupils equal round and reactive to light, extraocular movements intact, sclera anicteric, conjunctiva are normal. ENT: TMs normal, nares patent, oropharynx clear without exudates. Moist mucous membranes. No oral ulcerations or bleeding gums noted NECK: supple without lymphadenopathy. Trachea is central. No cervical or axillary lymphadenopathy noted. Carotids are 2+, JVD 8-10 cm LUNGS: Respiration seems nonlabored, no significant accessory muscle action noted. Bibasilar fine crackles and mild dullness noted both bases. CHEST: Palpation of the chest wall shows no significant chest wall tenderness. No other significant abnormalities noted. HEART: [place] CORE PASTER, No PSH, 1/6 PAM aortic area, 1/6 lara systolic murmur mitral area, no rubs, no gallops. ABDOMEN: Soft, no significant tenderness appreciated, normoactive bowel sounds. No guarding, no rebound. No rigidity noted . No masses appreciated. EXTREMITIES: Pedal pulses are 1-2+, no calf tenderness noted. No clubbing or cyanosis.trace pedal edema noted NEUROLOGICAL: Focused neurological exam showed no significant neurologic deficit. Normal speech, no focal weakness appreciated. PSYCH: Normal mood, normal affect. Judgment and insight within normal limits. SKIN: No significant ecchymosis, rash, ulcerations or signs of pruritus noted. MUSCULOSKELETAL EXAM: No significant joint swelling noted. Results Laboratory Results: 02/19/17 04:57 02/19/17 04:57 02/19/17 02/19/17 02/19/17 04:57 04:57 04:57 WBC 7.6 RBC 3.12 L Hgb 8.9 L Hct 27.6 L MCV 88 MCH 28.4 MCHC 32.1 RDW 16.8 H Plt Count 254 Seg Neutrophils % 69.4 Lymphocytes % 15.3 Monocytes % 14.1 H Eosinophils % 0.9 Basophils % 0.3 Absolute Neutrophils 5.3 Absolute Lymphocytes 1.2 Absolute Monocytes 1.1 Absolute Eosinophils 0.1 Absolute Basophils 0.0 Retic Count (auto) 4.41 H Absolute Retic 0.140 H Sodium 134.7 L Potassium 3.8 D Chloride 103 Carbon Dioxide 25 Anion Gap 7 BUN 13 Creatinine 0.61 Est GFR ( Amer) > 60 Est GFR (Non-Af Amer) > 60 Glucose 107 Calcium 8.0 L Iron TIBC % Saturation Ferritin Vitamin B12 Folate 02/19/17 04:57 WBC RBC Hgb Hct MCV MCH MCHC RDW Plt Count Seg Neutrophils % Lymphocytes % Monocytes % Eosinophils % Basophils % Absolute Neutrophils Absolute Lymphocytes Absolute Monocytes Absolute Eosinophils Absolute Basophils Retic Count (auto) Absolute Retic Sodium Potassium Chloride Carbon Dioxide Anion Gap BUN Creatinine Est GFR ( Amer) Est GFR (Non-Af Amer) Glucose Calcium Iron < 10.1 L TIBC 300 % Saturation UNABLE TO CALCULATE Ferritin 74.00 Vitamin B12 557.0 Folate 7.58 EKG Comments: EKG reviewed. Shows atrial fibrillation with controlled ventricular response. Impressions: Chest/Abdomen CTA 02/18/17 00:00 IMPRESSION: Moderate bilateral pleural effusions Consolidation in the right lower lobe is less prominent than in January, suggesting against tumor. Mural thrombus along the descending thoracic aorta without evidence of thoracic aortic dissection or aneurysm No CT angio evidence of acute pulmonary emboli. Chest X-Ray 02/18/17 11:24 IMPRESSION: Decrease in size of mass versus infiltrate in the right lower lobe compared to films from January 2017. Interval development of small bilateral pleural effusions with bibasilar airspace disease atelectasis versus pneumonia. Status: Image reviewed by me - CTA chest images reviewed by me. Agree with findings. Assessment & Plan - Diagnosis (1) Atrial fibrillation Qualifiers: Atrial fibrillation type: chronic Qualified Code(s): I48.2 - Chronic atrial fibrillation Is this a current diagnosis for this admission?: Yes (2) Coronary artery disease Qualifiers: Coronary Disease-Associated Artery/Lesion type: [place] artery [place] vs. transplanted heart: [place] heart Associated angina: angina presence unspecified Qualified Code(s): I25.10 - Atherosclerotic heart disease of [place] coronary artery without angina pectoris Is this a current diagnosis for this admission?: Yes (3) Hypertension Qualifiers: Hypertension type: essential hypertension Qualified Code(s): I10 - Essential (primary) hypertension Is this a current diagnosis for this admission?: Yes (4) Pneumonia Qualifiers: Pneumonia type: due to unspecified organism Laterality: right Lung location: lower lobe of lung Qualified Code(s): J18.1 - Lobar pneumonia, unspecified organism Is this a current diagnosis for this admission?: Yes (5) Congestive heart failure (CHF) Qualifiers: Congestive heart failure type: unspecified congestive heart failure type Congestive heart failure chronicity: acute on chronic Qualified Code(s ): I50.9 - Heart failure, unspecified Is this a current diagnosis for this admission?: Yes - Notes Notes: Twelve-lead EKG reviewed. CT scan reviewed. Labs reviewed. Ordered 2D echocardiogram. missile tracking technician reviewed which shows controlled heart rate response Medications reviewed. Start patient on Lasix, 20 mg p.o. daily. Labs ordered lipid panel and BNP level. Atrial fibrillation: Seems chronic based on review of chart and on talking to the patient. EKG is reviewed. Rate reasonably well controlled today. Continue with chronic anticoagulation. Coronary artery disease: Symptomatically stable. Will check a lipid panel. Will optimize therapy for underlying CAD. Hypertension: Reasonably well controlled. Blood pressure goal in this patient is 135/85 or less. This was discussed with the patient. Currently blood pressure under reasonable control. Better medication for this patient are JIMENEZ inhibitor/ARB/beta cathy etc. discussed side effects of uncontrolled hypertension and also severe hypotension. Pneumonia: Continue with antibiotic therapy. Patient under management by cardiology fellow and by sr. manager corporate communications. Congestive heart failure: We will order a BNP level. Patient does have bilateral pleural effusion and mildly elevated JVP. COPD: Believe that patient had but awaiting final diagnosis from a sr. manager corporate communications. - Time Time with patient: Greater than 35 minutes - CODE STATUS was discussed, patient remains full code. Surrogate decision-maker unchanged. Multiple medical problems were addressed. More than 50% of the time spent coordinating care, discussing management plans with involved caregivers. Management plans discussed with involved personnels. Medical decision making was of high complexity, patient's has multiple comorbidities. Medications reviewed and adjusted accordingly: Yes
[2017-02-19] MEDS ORDERED: FUROSEMIDE 40 MG TABLET PO SCH (12:00)
--- NOTE | 2017-02-19 13:01 | EKG REPORT ---
SEVERITY:- ABNORMAL ECG - ATRIAL FIBRILLATION, V-RATE 79-97 LOW VOLTAGE IN FRONTAL LEADS BORDERLINE T ABNORMALITIES, DIFFUSE LEADS : Confirmed by: Emily Lowe MD 19-Feb-2017 13:01:26
--- NOTE | 2017-02-19 13:01 | EKG REPORT ---
SEVERITY:- ABNORMAL ECG - ATRIAL FIBRILLATION : Confirmed by: Emily Lowe MD 19-Feb-2017 13:01:30
--- NOTE | 2017-02-19 14:36 | PDOC PROGRESS REPORT ---
Subjective Progress Note for:: 02/19/17 Subjective:: Patient states that her dyspnea has resolved since admission yesterday. Telemetry monitoring shows that her tachycardia has resolved since about 2200 last night. Patient denies fever, chills, headache, new focal weakness, chest pain, shortness of breath, abdominal pain, nausea, vomiting, diarrhea, constipation. Physical Exam Vital Signs: Temp Pulse Resp BP Pulse Ox 97.6 F 74 16 108/60 90 L 02/19/17 11:42 02/19/17 14:00 02/19/17 11:42 02/19/17 11:42 02/19/17 11:42 Intake & Output 02/18/17 02/19/17 02/20/17 06:59 06:59 06:59 Intake Total 892 300 Balance 892 300 Weight 54.8 kg GENERAL: No acute distress HEENT: Conjunctiva clear, nonicteric, moist mucous membranes, no JVD, midline trachea RESPIRATORY: Clear to auscultation bilaterally, no wheezes, no rhonchi CARDIAC: Irregular rhythm, no murmurs/gallops/rubs ABDOMEN: Soft, nondistended, nontender, positive bowel sounds, no rebound, no guarding EXTREMETIES: No edema, cyanosis, clubbing NEUROLOGIC: Alert, oriented to person/place/time, CN's grossly intact, no focal deficits SKIN: No rash, wounds PSYCH: Normal mood, normal affect Results Laboratory Results: 02/19/17 04:57 02/19/17 04:57 02/19/17 02/19/17 02/19/17 04:57 04:57 04:57 WBC 7.6 RBC 3.12 L Hgb 8.9 L Hct 27.6 L MCV 88 MCH 28.4 MCHC 32.1 RDW 16.8 H Plt Count 254 Seg Neutrophils % 69.4 Lymphocytes % 15.3 Monocytes % 14.1 H Eosinophils % 0.9 Basophils % 0.3 Absolute Neutrophils 5.3 Absolute Lymphocytes 1.2 Absolute Monocytes 1.1 Absolute Eosinophils 0.1 Absolute Basophils 0.0 Retic Count (auto) 4.41 H Absolute Retic 0.140 H Sodium 134.7 L Potassium 3.8 D Chloride 103 Carbon Dioxide 25 Anion Gap 7 BUN 13 Creatinine 0.61 Est GFR ( Amer) > 60 Est GFR (Non-Af Amer) > 60 Glucose 107 Calcium 8.0 L Iron TIBC % Saturation Ferritin Vitamin B12 Folate 02/19/17 04:57 WBC RBC Hgb Hct MCV MCH MCHC RDW Plt Count Seg Neutrophils % Lymphocytes % Monocytes % Eosinophils % Basophils % Absolute Neutrophils Absolute Lymphocytes Absolute Monocytes Absolute Eosinophils Absolute Basophils Retic Count (auto) Absolute Retic Sodium Potassium Chloride Carbon Dioxide Anion Gap BUN Creatinine Est GFR ( Amer) Est GFR (Non-Af Amer) Glucose Calcium Iron < 10.1 L TIBC 300 % Saturation UNABLE TO CALCULATE Ferritin 74.00 Vitamin B12 557.0 Folate 7.58 02/19/17 04:57 NT-Pro-B Natriuret Pep 4100 H Impressions: Chest/Abdomen CTA 02/18/17 00:00 IMPRESSION: Moderate bilateral pleural effusions Consolidation in the right lower lobe is less prominent than in January, suggesting against tumor. Mural thrombus along the descending thoracic aorta without evidence of thoracic aortic dissection or aneurysm No CT angio evidence of acute pulmonary emboli. Chest X-Ray 02/18/17 11:24 IMPRESSION: Decrease in size of mass versus infiltrate in the right lower lobe compared to films from January 2017. Interval development of small bilateral pleural effusions with bibasilar airspace disease atelectasis versus pneumonia. Assessment & Plan - Diagnosis (1) Atrial fibrillation with rapid ventricular response Is this a current diagnosis for this admission?: YesPlan: Discontinue Cardizem drip. Start oral Cardizem. Cardiology following. Continue Coumadin and monitor INR. (2) Pneumonia Qualifiers: Pneumonia type: due to unspecified organism Laterality: right Lung location: lower lobe of lung Qualified Code(s): J18.1 - Lobar pneumonia, unspecified organism Is this a current diagnosis for this admission?: YesPlan: Discontinue IV antibiotics. Start oral Levaquin. Patient was recently discharged for streptococcal pneumonia and had just completed antibiotic course a few days prior to admission. (3) Hypertension Qualifiers: Hypertension type: essential hypertension Qualified Code(s): I10 - Essential (primary) hypertension Is this a current diagnosis for this admission?: YesPlan: Norvasc discontinued on admission. Continue metoprolol. Patient has been started on oral Cardizem today for heart rate control of atrial fibrillation as well. (4) Hypotension Is this a current diagnosis for this admission?: Yes (5) Coronary artery disease Qualifiers: Coronary Disease-Associated Artery/Lesion type: [place] artery [place] vs. transplanted heart: [place] heart Associated angina: angina presence unspecified Qualified Code(s): I25.10 - Atherosclerotic heart disease of [place] coronary artery without angina pectoris Is this a current diagnosis for this admission?: Yes (6) Abnormal chest CT Is this a current diagnosis for this admission?: YesPlan: Possibly secondary to dense consolidation in right lower lobe which is improved since previous CT scan. Patient will need to follow-up with Dr. Scott of pulmonary medicine. She will need repeat CT imaging of her chest in the next few weeks. (7) Anemia Is this a current diagnosis for this admission?: YesPlan: Iron deficiency. B12 and folic acid levels normal. Check Hemoccult of stool. Patient will need further outpatient workup. Start iron supplementation. - Time Time Spent with patient: 35 or more minutes Anticipated discharge: Home Within: within 24 hours
[2017-02-19] MEDS: ATORVASTATIN CALCIUM 10 MG TABLET PO SCH (22:44)
[2017-02-19] MEDS: WARFARIN SODIUM 3 MG TABLET PO SCH (22:45)
[2017-02-20] MEDS: DILTIAZEM HCL 60 MG TABLET PO SCH ×2 (00:10→06:10)
[2017-02-20 05:21] LABS: ABSOLUTE BASOPHILS # (AUTO) 0.1 10^3/uL (0.0-0.2); ABSOLUTE EOSINOPHILS # (AUTO) 0.1 10^3/uL (0.0-0.6); ABSOLUTE LYMPHOCYTES (AUTO) 0.9 10^3/uL (0.5-4.7); ABSOLUTE MONOCYTES (AUTO) 1.1 10^3/uL (0.1-1.4); ABSOLUTE NEUT (AUTO) 5.7 10^3/uL (1.7-8.2); BASOPHILS % (AUTO) 0.6 % (0-2); EOSINOPHILS % (AUTO) 1.5 % (0-6); HEMATOCRIT 31.3 % (36.0-47.0); HGB HCT DIFFERENCE -1.3; LYMPHOCYTES % (AUTO) 11.6 % (13-45); MEAN CORPUSCULAR HEMOGLOBIN 28.3 pg (27.0-33.4); MEAN CORPUSCULAR VOLUME 88 fl (80-97); MONOCYTES % (AUTO) 13.7 % (3-13); RED BLOOD COUNT 3.54 10^6/uL (3.72-5.28); RED CELL DISTRIBUTION WIDTH 16.6 % (11.5-14.0); SEGMENTED NEUTROPHILS % (AUTO) 72.6 % (42-78); WHITE BLOOD COUNT 7.9 10^3/uL (4.0-10.5)
[2017-02-20 05:24] LABS: PROTHROMBIN TIME 32.1 SEC (11.4-15.4)
[2017-02-20 05:35] LABS: ANION GAP 10 (5-19); BLOOD UREA NITROGEN 14 mg/dL (7-20); CALCIUM 8.4 mg/dL (8.4-10.2); CARBON DIOXIDE 27 mmol/L (22-30); CHLORIDE 100 mmol/L (98-107); CREATININE RESULT 0.65 mg/dL (0.52-1.25); GLUCOSE 99 mg/dL (75-110); POTASSIUM 4.1 mmol/L (3.6-5.0); SODIUM 137.2 mmol/L (137-145)
[2017-02-20] MEDS: AMITRIPTYLINE HCL 25 MG TABLET PO SCH (09:47)
[2017-02-20] MEDS: METOPROLOL TARTRATE 50 MG TABLET PO SCH (09:47)
[2017-02-20] MEDS: LEVOFLOXACIN 750 MG TABLET PO SCH (09:47)
[2017-02-20] MEDS ORDERED: FERROUS SULFATE 325 MG TABLET PO SCH (10:00)
[2017-02-20] MEDS ORDERED: DILTIAZEM HCL 180 MG CAPSULE.CR PO SCH (10:00)
[2017-02-20 11:14] VITALS: BP 104/72
--- NOTE | 2017-02-20 12:37 | PDOC CONSULTATION ---
Consultation Consult Date: 02/19/17 Attending physician:: GILLIAN CEVALLOS Consult reason:: dyspnea/bilateral pleural effusions History of Present Illness Admission Date/PCP: 02/18/17 14:22 DONA WHITLOCK MD History of Present Illness: MARTA ROGERS is a 81 year old female with past medical history of atrial fibrillation, coronary artery disease, right lung mass presents with 1 day increasing shortness of breath. She denies fevers or chills. It is notable that she was admitted to the hospital from 01/24/2017 until 02/01/2017 for streptococcal pneumonia and right lower lung mass. Patient was discharged home on oral Levaquin and completed a course of antibiotics a few days ago. With regard to patient's lower lung mass this was diagnosed during recent hospitalization. Patient underwent bronchoscopy on 01/31/[address] Scott and pathology was negative for malignancy.Radiographically none appears to be improved.Clinically patient short of breath.. She denies nausea vomiting fevers chills rhinorrhea sore throat chest pain or edema. Past Medical History Cardiac Medical History: Reports: Atrial Fibrillation, Coronary Artery Disease, Myocardial Infarction, Hyperlipidema, Hypertension Denies: Congestive Heart Failure, DVT Pulmonary Medical History: Reports: Pneumonia, Other - Right lower lobe mass Denies: Chronic Obstructive Pulmonary Disease (COPD), Tuberculosis Endocrine Medical History: Denies: Diabetes Mellitus Type 2 Psychiatric Medical History: Denies: Depression Past Surgical History Past Surgical History: Reports: Coronary Stent Social History Information Source: Patient, [facility] Records Lives with: Family Smoking Status: Former Smoker Cigarettes Packs Per Day: 1 Number of Years Smokin Last Time Smoked: 09/04/16 Frequency of Alcohol Use: None Hx Recreational Drug Use: No Drugs: None Hx Prescription Drug Abuse: No - Advance Directive Resuscitation Status: Full Code Family History Family History: COPD Parental Family History Reviewed: Yes Children Family History Reviewed: Yes Sibling(s) Family History Reviewed.: Yes Medication/Allergy Home Medications: Albuterol Sulfate [Ventolin Hfa] 2 puff IH Q4HP PRN 02/18/17 Amitriptyline HCl [Elavil 25 mg Tablet] 25 mg PO DAILY 02/18/17 Metoprolol Tartrate [Lopressor 50 mg Tablet] 50 mg PO Q12 02/18/17 Pravastatin Sodium [Pravachol] 20 mg PO QHS 02/18/17 Warfarin Sodium [Coumadin] 6 mg PO QHS 02/18/17 Diltiazem HCl [Cardizem Cd 180 mg Capsule] 180 mg PO DAILY #30 capsule.cr Iron Polysaccharide Complex [Polysaccharide Iron 150] 150 mg PO DAILY #30 capsule 02/20/17 Levofloxacin [Levaquin 750 mg Tablet] 750 mg PO DAILY #5 tablet 02/20/17 Allergies/Adverse Reactions: No Known Allergies Allergy (Verified 02/18/17 11:22) Physical Exam Vital Signs: Temp Pulse Resp BP Pulse Ox 98.0 F 84 18 139/72 H 94 02/19/17 04:51 02/19/17 06:30 02/19/17 04:51 02/19/17 06:31 02/19/17 04:00 Intake & Output 02/18/17 02/19/17 02/20/17 06:59 06:59 06:59 Intake Total 892 Balance 892 Weight 54.8 kg General appearance: PRESENT: cooperative, disheveled, mild distress, well- developed, well-nourished Head exam: PRESENT: atraumatic, normocephalic Eye exam: PRESENT: conjunctiva pale, EOMI Mouth exam: PRESENT: dry mucosa, neck supple Neck exam: PRESENT: carotid bruit Respiratory exam: PRESENT: decreased breath sounds, prolonged expiratory phas, rales - Primarily right posterior chest wall, rhonchi - Scattered, unlabored Cardiovascular exam: PRESENT: RRR, +S1, +S2 Pulses: PRESENT: normal radial pulses GI/Abdominal exam: PRESENT: normal bowel sounds, soft. ABSENT: distended, guarding, mass, organolmegaly, rebound, tenderness Rectal exam: PRESENT: deferred Musculoskeletal exam: PRESENT: normal inspection Neurological exam: PRESENT: awake Psychiatric exam: PRESENT: normal mood Skin exam: PRESENT: dry, warm Results Laboratory Results: 02/19/17 04:57 02/19/17 04:57 02/19/17 02/19/17 04:57 04:57 WBC 7.6 RBC 3.12 L Hgb 8.9 L Hct 27.6 L MCV 88 MCH 28.4 MCHC 32.1 RDW 16.8 H Plt Count 254 Seg Neutrophils % 69.4 Lymphocytes % 15.3 Monocytes % 14.1 H Eosinophils % 0.9 Basophils % 0.3 Absolute Neutrophils 5.3 Absolute Lymphocytes 1.2 Absolute Monocytes 1.1 Absolute Eosinophils 0.1 Absolute Basophils 0.0 Sodium 134.7 L Potassium 3.8 D Chloride 103 Carbon Dioxide 25 Anion Gap 7 BUN 13 Creatinine 0.61 Est GFR ( Amer) > 60 Est GFR (Non-Af Amer) > 60 Glucose 107 Calcium 8.0 L Impressions: Chest/Abdomen CTA 02/18/17 00:00 IMPRESSION: Moderate bilateral pleural effusions Consolidation in the right lower lobe is less prominent than in January, suggesting against tumor. Mural thrombus along the descending thoracic aorta without evidence of thoracic aortic dissection or aneurysm No CT angio evidence of acute pulmonary emboli. Chest X-Ray 02/18/17 11:24 IMPRESSION: Decrease in size of mass versus infiltrate in the right lower lobe compared to films from January 2017. Interval development of small bilateral pleural effusions with bibasilar airspace disease atelectasis versus pneumonia. Assessment & Plan - Diagnosis (1) Abnormal chest CT Is this a current diagnosis for this admission?: YesPlan: Patient is status post bronchoscopy by approximately 3 weeks was non-diagnostic visual examination; she did display floppy airways;her pneumonitis may be due in part or completely due to a post-obstructive syndrome (2) Atrial fibrillation Qualifiers: Atrial fibrillation type: chronic Qualified Code(s): I48.2 - Chronic atrial fibrillation Is this a current diagnosis for this admission?: YesPlan: Chronic control RVR (3) Congestive heart failure (CHF) Qualifiers: Congestive heart failure type: unspecified congestive heart failure type Congestive heart failure chronicity: acute on chronic Qualified Code(s ): I50.9 - Heart failure, unspecified Is this a current diagnosis for this admission?: Yes
--- NOTE | 2017-02-20 12:38 | PDOC PROGRESS REPORT ---
Subjective Progress Note for:: 02/20/17 Subjective:: I am feeling much better Physical Exam Vital Signs: Temp Pulse Resp BP Pulse Ox 98.1 F 85 18 104/72 91 L 02/20/17 11:11 02/20/17 11:11 02/20/17 11:11 02/20/17 11:11 02/20/17 11:11 Intake & Output 02/19/17 02/20/17 02/21/17 06:59 06:59 06:59 Intake Total 892 840 Balance 892 840 Weight 54.8 kg 54.1 kg General appearance: PRESENT: no acute distress, cooperative, disheveled, well- developed, well-nourished Head exam: PRESENT: atraumatic, normocephalic Eye exam: PRESENT: conjunctiva pale, EOMI Mouth exam: PRESENT: moist, neck supple, tongue midline Neck exam: ABSENT: carotid bruit, JVD, lymphadenopathy, thyromegaly Respiratory exam: PRESENT: decreased breath sounds - Right posterior lateral chest spivey, prolonged expiratory phas, rhonchi, unlabored Cardiovascular exam: PRESENT: RRR, +S1, +S2 Pulses: PRESENT: normal radial pulses GI/Abdominal exam: PRESENT: normal bowel sounds, soft. ABSENT: distended, guarding, mass, organolmegaly, rebound, tenderness Rectal exam: PRESENT: deferred Musculoskeletal exam: PRESENT: normal inspection Neurological exam: PRESENT: awake Skin exam: PRESENT: dry, warm Results Laboratory Results: 02/20/17 04:26 02/20/17 04:26 02/20/17 02/20/17 04:26 04:26 WBC 7.9 RBC 3.54 L Hgb 10.0 L Hct 31.3 L MCV 88 MCH 28.3 MCHC 32.0 RDW 16.6 H Plt Count 316 Seg Neutrophils % 72.6 Lymphocytes % 11.6 L Monocytes % 13.7 H Eosinophils % 1.5 Basophils % 0.6 Absolute Neutrophils 5.7 Absolute Lymphocytes 0.9 Absolute Monocytes 1.1 Absolute Eosinophils 0.1 Absolute Basophils 0.1 Sodium 137.2 Potassium 4.1 Chloride 100 Carbon Dioxide 27 Anion Gap 10 BUN 14 Creatinine 0.65 Est GFR ( Amer) > 60 Est GFR (Non-Af Amer) > 60 Glucose 99 Calcium 8.4 02/19/17 04:57 NT-Pro-B Natriuret Pep 4100 H Impressions: Chest/Abdomen CTA 02/18/17 00:00 IMPRESSION: Moderate bilateral pleural effusions Consolidation in the right lower lobe is less prominent than in January, suggesting against tumor. Mural thrombus along the descending thoracic aorta without evidence of thoracic aortic dissection or aneurysm No CT angio evidence of acute pulmonary emboli. Chest X-Ray 02/18/17 11:24 IMPRESSION: Decrease in size of mass versus infiltrate in the right lower lobe compared to films from January 2017. Interval development of small bilateral pleural effusions with bibasilar airspace disease atelectasis versus pneumonia. Assessment & Plan - Diagnosis (1) Abnormal chest CT Is this a current diagnosis for this admission?: Yes (2) Atrial fibrillation Qualifiers: Atrial fibrillation type: chronic Qualified Code(s): I48.2 - Chronic atrial fibrillation Is this a current diagnosis for this admission?: Yes (3) Congestive heart failure (CHF) Qualifiers: Congestive heart failure type: unspecified congestive heart failure type Congestive heart failure chronicity: acute on chronic Qualified Code(s ): I50.9 - Heart failure, unspecified Is this a current diagnosis for this admission?: Yes
--- NOTE | 2017-02-20 13:41 | PDOC DISCHARGE SUMMARY ---
General - Admit/Disc Date/PCP Admission Date/Primary Care Provider: 02/18/17 14:22 DONA WHITLOCK MD Discharge Date: 02/20/17 - Discharge Diagnosis (1) Atrial fibrillation with rapid ventricular response Is this a current diagnosis for this admission?: Yes (2) Pneumonia Is this a current diagnosis for this admission?: Yes (3) Hypertension Is this a current diagnosis for this admission?: Yes (4) Hypotension Is this a current diagnosis for this admission?: Yes (5) Coronary artery disease Is this a current diagnosis for this admission?: Yes (6) Abnormal chest CT Is this a current diagnosis for this admission?: Yes (7) Anemia Is this a current diagnosis for this admission?: Yes - Additional Information Resuscitation Status: Full Code Discharge Diet: Cardiac Discharge Activity: Activity As Tolerated Home Medications: Albuterol Sulfate [Ventolin Hfa] 2 puff IH Q4HP PRN 02/18/17 Amitriptyline HCl [Elavil 25 mg Tablet] 25 mg PO DAILY 02/18/17 Metoprolol Tartrate [Lopressor 50 mg Tablet] 50 mg PO Q12 02/18/17 Pravastatin Sodium [Pravachol] 20 mg PO QHS 02/18/17 Warfarin Sodium [Coumadin] 6 mg PO QHS 02/18/17 Diltiazem HCl [Cardizem Cd 180 mg Capsule] 180 mg PO DAILY #30 capsule.cr Iron Polysaccharide Complex [Polysaccharide Iron 150] 150 mg PO DAILY #30 capsule 02/20/17 Levofloxacin [Levaquin 750 mg Tablet] 750 mg PO DAILY #5 tablet 02/20/17 History of Present Illness Patient complains of: Shortness of breath History of Present Illness: MARTA ROGERS is a 81 year old female with past medical history of atrial fibrillation, coronary artery disease, right lung mass presents with 1 day increasing shortness of breath. She denies fevers or chills. It is notable that she was admitted to the hospital from 01/24/2017 until 02/01/2017 for streptococcal pneumonia and right lower lung mass. Patient was discharged home on oral Levaquin and completed a course of antibiotics a few days ago. With regard to patient's lower lung mass this was diagnosed during recent hospitalization. Patient underwent bronchoscopy on 01/31/[address] Scott and pathology was negative for malignancy. Hospital Course Hospital Course: Patient presented with dyspnea and was found to have atrial fibrillation with rapid ventricular response. She was given one-time dose of digoxin in the emergency department and eventually placed on Cardizem drip. Heart rate became controlled overnight on Cardizem drip. On second day of admission patient was converted to oral Cardizem and remained stable for 24 hours on telemetry on oral Cardizem. She is discharged home on Cardizem CD 180 mg daily. She was seen by cardiology in the hospital. She will follow-up with Dr. Gregg cardiology after discharge. Patient is on chronic anticoagulation with Coumadin. Patient has a history of abnormal chest CT with right lower lobe density noted on recent admission. Follow-up CT this admission shows improvement of density in the right lower lobe and this was thought to be less likely a mass and more likely dense consolidation. She had bronchoscopy done on 01/31/[address] Scott of pulmonary medicine. She will need to follow-up with Dr. Scott as an outpatient. We will have her complete 5 more days of oral Levaquin after discharge. Patient has chronic anemia. Hemoglobin is low but stable. She will need further outpatient management for this. Physical Exam Vital Signs: Temp Pulse Resp BP Pulse Ox 98.1 F 85 18 104/72 91 L 02/20/17 11:11 02/20/17 11:11 02/20/17 11:11 02/20/17 11:11 02/20/17 11:11 Intake & Output 02/19/17 02/20/17 02/21/17 06:59 06:59 06:59 Intake Total 892 840 Balance 892 840 Weight 54.8 kg 54.1 kg GENERAL: No acute distress HEENT: Conjunctiva clear, nonicteric, moist mucous membranes, no JVD, midline trachea RESPIRATORY: Clear to auscultation bilaterally, no wheezes, no rhonchi CARDIAC: Irregular rhythm, no murmurs/gallops/rubs ABDOMEN: Soft, nondistended, nontender, positive bowel sounds, no rebound, no guarding EXTREMETIES: No edema, cyanosis, clubbing NEUROLOGIC: Alert, oriented to person/place/time, CN's grossly intact, no focal deficits SKIN: No rash, wounds PSYCH: Normal mood, normal affect Results Laboratory Results: 02/20/17 04:26 02/20/17 04:26 02/20/17 02/20/17 04:26 04:26 WBC 7.9 RBC 3.54 L Hgb 10.0 L Hct 31.3 L MCV 88 MCH 28.3 MCHC 32.0 RDW 16.6 H Plt Count 316 Seg Neutrophils % 72.6 Lymphocytes % 11.6 L Monocytes % 13.7 H Eosinophils % 1.5 Basophils % 0.6 Absolute Neutrophils 5.7 Absolute Lymphocytes 0.9 Absolute Monocytes 1.1 Absolute Eosinophils 0.1 Absolute Basophils 0.1 Sodium 137.2 Potassium 4.1 Chloride 100 Carbon Dioxide 27 Anion Gap 10 BUN 14 Creatinine 0.65 Est GFR ( Amer) > 60 Est GFR (Non-Af Amer) > 60 Glucose 99 Calcium 8.4 02/19/17 04:57 NT-Pro-B Natriuret Pep 4100 H Impressions: Chest/Abdomen CTA 02/18/17 00:00 IMPRESSION: Moderate bilateral pleural effusions Consolidation in the right lower lobe is less prominent than in January, suggesting against tumor. Mural thrombus along the descending thoracic aorta without evidence of thoracic aortic dissection or aneurysm No CT angio evidence of acute pulmonary emboli. Chest X-Ray 02/18/17 11:24 IMPRESSION: Decrease in size of mass versus infiltrate in the right lower lobe compared to films from January 2017. Interval development of small bilateral pleural effusions with bibasilar airspace disease atelectasis versus pneumonia. Qualifiers PATEINT BEING DISCHARGED WITH ANY OF THE FOLLOWING DIAGNOSIS?: No Plan Time Spent: Less than 30 Minutes
--- NOTE | 2017-02-20 20:07 | PDOC PROGRESS REPORT ---
Subjective Progress Note for:: 02/20/17 Subjective:: Patient seems to be doing better with gradual improvement. Patient claims that she is ready for discharge. She would like to follow-up with me for further cardiac management. Pt is denying any chest arm or neck discomfort. Patient denying any PND, orthopnea. Patient denied any sustained palpitations, dizziness, syncope, near syncope. Patient denying any fever chills. Patient denying any other significant discomfort. Patient is maintaining chronic atrial fibrillation, however rate is well controlled. Review of systems: Rest review of systems negative. Medications: Medications have been reviewed. Physical Exam Vital Signs: Temp Pulse Resp BP Pulse Ox 98.1 F 85 18 104/72 91 L 02/20/17 11:11 02/20/17 11:11 02/20/17 11:11 02/20/17 11:11 02/20/17 11:11 Intake & Output 02/19/17 02/20/17 02/21/17 06:59 06:59 06:59 Intake Total 892 840 Balance 892 840 Weight 54.8 kg 54.1 kg Exam: GENERAL: well-nourished and in no acute distress. Alert and oriented x3 HEAD: Atraumatic, normocephalic. EYES: Pupils equal round and reactive to light, extraocular movements intact, sclera anicteric, conjunctiva are normal. ENT: TMs normal, nares patent, oropharynx clear without exudates. Moist mucous membranes. No oral ulcerations or bleeding gums noted NECK: supple without lymphadenopathy. Trachea is central. No cervical or axillary lymphadenopathy noted. Carotids are 2+, JVD WNL LUNGS: Respiration seems nonlabored, no significant accessory muscle action noted. Breath sounds clear to auscultation bilaterally and equal noted. No wheezes rales or rhonchi noted. No significant dullness noted on percussion. CHEST: Palpation of the chest wall shows no significant chest wall tenderness. No other significant abnormalities noted. 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 ABDOMEN: Soft, no significant tenderness appreciated, normoactive bowel sounds. No guarding, no rebound. No rigidity noted . No masses appreciated. EXTREMITIES: Pedal pulses are 1-2+, no calf tenderness noted. No clubbing or cyanosis.trace to 1+ pedal edema noted NEUROLOGICAL: Focused neurological exam showed no significant neurologic deficit. Normal speech, no focal weakness appreciated. PSYCH: Normal mood, normal affect. Judgment and insight within normal limits. SKIN: No significant ecchymosis, rash, ulcerations or signs of pruritus noted. MUSCULOSKELETAL EXAM: No significant joint swelling noted. Results Laboratory Results: 02/20/17 04:26 02/20/17 04:26 02/20/17 02/20/17 04:26 04:26 WBC 7.9 RBC 3.54 L Hgb 10.0 L Hct 31.3 L MCV 88 MCH 28.3 MCHC 32.0 RDW 16.6 H Plt Count 316 Seg Neutrophils % 72.6 Lymphocytes % 11.6 L Monocytes % 13.7 H Eosinophils % 1.5 Basophils % 0.6 Absolute Neutrophils 5.7 Absolute Lymphocytes 0.9 Absolute Monocytes 1.1 Absolute Eosinophils 0.1 Absolute Basophils 0.1 Sodium 137.2 Potassium 4.1 Chloride 100 Carbon Dioxide 27 Anion Gap 10 BUN 14 Creatinine 0.65 Est GFR ( Amer) > 60 Est GFR (Non-Af Amer) > 60 Glucose 99 Calcium 8.4 02/19/17 04:57 NT-Pro-B Natriuret Pep 4100 H Impressions: Chest/Abdomen CTA 02/18/17 00:00 IMPRESSION: Moderate bilateral pleural effusions Consolidation in the right lower lobe is less prominent than in January, suggesting against tumor. Mural thrombus along the descending thoracic aorta without evidence of thoracic aortic dissection or aneurysm No CT angio evidence of acute pulmonary emboli. Chest X-Ray 02/18/17 11:24 IMPRESSION: Decrease in size of mass versus infiltrate in the right lower lobe compared to films from January 2017. Interval development of small bilateral pleural effusions with bibasilar airspace disease atelectasis versus pneumonia. Assessment & Plan - Diagnosis (1) Atrial fibrillation Qualifiers: Atrial fibrillation type: chronic Qualified Code(s): I48.2 - Chronic atrial fibrillation Is this a current diagnosis for this admission?: Yes (2) Coronary artery disease Qualifiers: Coronary Disease-Associated Artery/Lesion type: [place] artery [place] vs. transplanted heart: [place] heart Associated angina: angina presence unspecified Qualified Code(s): I25.10 - Atherosclerotic heart disease of [place] coronary artery without angina pectoris Is this a current diagnosis for this admission?: Yes (3) Hypertension Qualifiers: Hypertension type: essential hypertension Qualified Code(s): I10 - Essential (primary) hypertension Is this a current diagnosis for this admission?: Yes (4) Pneumonia Qualifiers: Pneumonia type: due to unspecified organism Laterality: right Lung location: lower lobe of lung Qualified Code(s): J18.1 - Lobar pneumonia, unspecified organism Is this a current diagnosis for this admission?: Yes (5) Congestive heart failure (CHF) Qualifiers: Congestive heart failure type: unspecified congestive heart failure type Congestive heart failure chronicity: acute on chronic Qualified Code(s ): I50.9 - Heart failure, unspecified Is this a current diagnosis for this admission?: Yes - Notes Notes: Twelve-lead EKG reviewed. CT scan reviewed. Labs reviewed. Ordered 2D echocardiogram. This was ordered but not performed as patient was discharged prior to this being performed. Patient was informed to schedule this as an outpatient. cell reliner reviewed which shows atrial fibrillation with controlled heart rate response Medications reviewed. Patient noted to be on a stable regimen. Patient educated in CHF pathway. This should include salt and fluid restriction , daily weighing, adjustment of diuretic therapy based on weight gain et cetera. Patient to be educated that if there is gain of more than 2 pounds in a day or more than 5 pounds in a week, this indicates fluid retention and patient may need to adjust the diuretic therapy. Symptoms associated with CHF exacerbation to be discussed with the patient. This could include rapid weight gain, abdominal bloating, increased shortness of breath, fatigue, tiredness, cardiac arrhythmias et cetera. Atrial fibrillation: Seems chronic based on review of chart and on talking to the patient. EKG is reviewed. Rate reasonably well controlled today. Continue with chronic anticoagulation. Coronary artery disease: Symptomatically stable. Will further optimize therapy for underlying CAD as an outpatient as needed. Hypertension: Reasonably well controlled. Blood pressure goal in this patient is 135/85 or less. This was discussed with the patient. Currently blood pressure under reasonable control. Better medication for this patient are JIMENEZ inhibitor/ARB/beta cathy etc. discussed side effects of uncontrolled hypertension and also severe hypotension. Pneumonia: Continue with antibiotic therapy. Patient to follow-up with her primary operator. Congestive heart failure: BNP level came back elevated. Patient does have bilateral pleural effusion and mildly elevated JVP. Patient was placed on Lasix which she seems to be tolerating well. Will monitor CHF as an outpatient. CHF education provided. COPD: Believe that patient had but awaiting final diagnosis from a sonoscope operator. - Time Time with patient: Greater than 35 minutes - CODE STATUS was discussed, patient remains full code. Surrogate decision-maker unchanged. Multiple medical problems were addressed. More than 50% of the time spent coordinating care, discussing management plans with involved caregivers. Management plans discussed with involved personnels. Medical decision making was of moderate to high complexity, patient's has multiple comorbidities. Medications reviewed and adjusted accordingly: Yes
== END 2017-02-20 13:26 | disposition home or self-care (01) | DRG 308 ==
LOC: ER 11:12 → EH 14:06 → UNDOADMIN 14:06 → EH 14:22 → 3N 16:27
PROVIDERS: ADMIT Family Medicine; ATTEND Family Medicine
PROC: 02HV33Z Insertion of Infusion Device into Superior Vena Cava, Percutaneous Approach (ICD-10-PCS; principal; 2017-02-18)
PROC: B548ZZA Ultrasonography of Superior Vena Cava, Guidance (ICD-10-PCS; 2017-02-18)
DX: I48.2 Chronic atrial fibrillation (principal); J18.1 Lobar pneumonia, unspecified organism; I50.23 Acute on chronic systolic (congestive) heart failure; J44.0 Chronic obstructive pulmonary disease with (acute) lower respiratory infection; R91.8 Other nonspecific abnormal finding of lung field; I95.9 Hypotension, unspecified; I25.10 Atherosclerotic heart disease of native coronary artery without angina pectoris; D64.9 Anemia, unspecified; E78.5 Hyperlipidemia, unspecified; I11.0 Hypertensive heart disease with heart failure; I25.2 Old myocardial infarction; Z79.899 Other long term (current) drug therapy; Z95.5 Presence of coronary angioplasty implant and graft; Z87.891 Personal history of nicotine dependence; Z79.01 Long term (current) use of anticoagulants; Z83.6 Family history of other diseases of the respiratory system
CPT/HCPCS: 36415; 71020; 71275; 80048; 80053; 81001; 82550; 82553; 82607; 82728; 82746; 82803; 83540; 83550; 83735; 83880; 84466; 84484; 85025; 85045; 85610; 87086; 87088; 87186; 93005; 93010; 94640; 99285; J0692; J1160; J1956; J3490; J7030

== ENCOUNTER 2017-05-10 14:58 | Inpatient (IN) | payer MEDICARE, BC ==
[2017-05-10] MEDS ORDERED: ASPIRIN 81 MG TABLET, CHEWABLE PO ONE (15:27)
[2017-05-10] MEDS ORDERED: DILTIAZEM HCL/D5W 125 MG/125 ML RTUINJ IV PRN (15:28)
[2017-05-10 15:59] LABS: ABSOLUTE BASOPHILS # (AUTO) 0.1 10^3/uL (0.0-0.2); ABSOLUTE EOSINOPHILS # (AUTO) 0.1 10^3/uL (0.0-0.6); ABSOLUTE LYMPHOCYTES (AUTO) 0.7 10^3/uL (0.5-4.7); ABSOLUTE MONOCYTES (AUTO) 0.9 10^3/uL (0.1-1.4); ABSOLUTE NEUT (AUTO) 4.9 10^3/uL (1.7-8.2); BASOPHILS % (AUTO) 0.9 % (0-2); EOSINOPHILS % (AUTO) 1.9 % (0-6); HEMATOCRIT 33.4 % (36.0-47.0); HEMOGLOBIN 10.5 g/dL (12.0-15.5); HGB HCT DIFFERENCE -1.9; LYMPHOCYTES % (AUTO) 9.8 % (13-45); MEAN CORPUSCULAR HEMOGLOBIN 24.6 pg (27.0-33.4); MEAN CORPUSCULAR HGB CONC 31.5 g/dL (32.0-36.0); MEAN CORPUSCULAR VOLUME 78 fl (80-97); MONOCYTES % (AUTO) 13.7 % (3-13); RED BLOOD COUNT 4.28 10^6/uL (3.72-5.28); RED CELL DISTRIBUTION WIDTH 19.2 % (11.5-14.0); SEGMENTED NEUTROPHILS % (AUTO) 73.7 % (42-78); WHITE BLOOD COUNT 6.7 10^3/uL (4.0-10.5)
[2017-05-10 16:12] LABS: ALANINE AMINOTRANSFERASE 31 U/L (9-52); ALBUMIN 3.5 g/dL (3.5-5.0); ALKALINE PHOSPHATASE 87 U/L (38-126); ANION GAP 10 (5-19); ASPARTATE AMINO TRANSFERASE 18 U/L (14-36); BILIRUBIN,DIRECT 0.4 mg/dL (0.0-0.4); BILIRUBIN,TOTAL 0.8 mg/dL (0.2-1.3); BLOOD UREA NITROGEN 18 mg/dL (7-20); CALCIUM 9.2 mg/dL (8.4-10.2); CARBON DIOXIDE 30 mmol/L (22-30); CHLORIDE 97 mmol/L (98-107); CREATINE KINASE 27 U/L (30-135); CREATININE RESULT 0.65 mg/dL (0.52-1.25); GLUCOSE 174 mg/dL (75-110); MAGNESIUM 1.8 mg/dL (1.6-2.3); POTASSIUM 3.6 mmol/L (3.6-5.0); SODIUM 137.4 mmol/L (137-145); TOTAL PROTEIN 6.4 g/dL (6.3-8.2)
[2017-05-10 16:14] LABS: PROTHROMBIN TIME 44.6 SEC (11.4-15.4)
[2017-05-10 16:15] LABS: PARTIAL THROMBOPLASTIN TIME 64.6 SEC (23.5-35.8)
--- NOTE | 2017-05-10 16:23 | RADIOLOGY REPORT (SQ) ---
EXAM DESCRIPTION: CHEST SINGLE VIEW COMPLETED DATE/TIME: 05/10/2017 3:53 pm REASON FOR STUDY: tachycardia COMPARISON: 02/18/2017. EXAM PARAMETERS: NUMBER OF VIEWS: One view. TECHNIQUE: Single frontal radiographic view of the chest acquired. RADIATION DOSE: NA LIMITATIONS: None. FINDINGS: LUNGS AND PLEURA: Moderate size right and small left pleural effusion. Confluent density at the right base associated with the effusion may represent recurrent infiltrate or mass.No opacitie s, masses or pneumothorax. . MEDIASTINUM AND HILAR STRUCTURES: No masses. Contour normal. HEART AND VASCULAR STRUCTURES: Heart normal in size. Normal vasculature. BONES: No acute findings. HARDWARE: None in the chest. OTHER: No other significant finding. IMPRESSION: Significant increase in density at the right base since previous chest x-ray of 7 represented by pleural effusion and possible underlying pathology-mass or infiltrate. Small left p leural effusion. TECHNICAL DOCUMENTATION: JOB ID: [id number]
[2017-05-10 16:24] LABS: CREATINE KINASE MB 0.78 ng/mL (<4.55)
[2017-05-10 16:25] LABS: TROPONIN I < 0.012 ng/mL
[2017-05-10] MEDS ORDERED: ACETAMINOPHEN 325 MG TABLET PO PRN (17:05)
[2017-05-10] MEDS ORDERED: MAG HYDROX/AL HYDROX/SIMETH SUSP 30 ML UDCUP PO PRN (17:05)
[2017-05-10] MEDS ORDERED: NITROGLYCERIN 0.4 MG/TAB 25 TAB/BOTTLE SL PRN (17:05)
[2017-05-10] MEDS ORDERED: ONDANSETRON HCL INJ/PF 4 MG/2 ML SDV IV PRN (17:05)
--- NOTE | 2017-05-10 17:24 | ER Document Report ---
ED General - General Chief Complaint: Irregular Pulse Stated Complaint: LEG PAIN, SWELLING Time Seen by Provider: 05/10/17 15:26 TRAVEL OUTSIDE OF THE [place] IN LAST 30 DAYS: No - HPI Patient complains to provider of: Leg swelling Notes: Patient coming in for evaluation of bilateral leg swelling that goes up to her hips dyspnea on exertion and also rapid heart rate. Patient was recently seen by editing computer publisher Dr. Mcguire concern for anasarca requesting per prescription as patient has in her hand patient be admitted for IV diuresis. Patient otherwise denies any changes in her medication states compliance with her medication denies checking her weights or being on a water restriction. Patient initially had elevated heart rate look to be in A. fib RVR however upon my evaluation now patient's heart rate has decreased blood pressure still below systolics of 80s and 90s. Patient otherwise denies chest pain shortness of breath while resting fever chills nausea vomiting diarrhea - Related Data Allergies/Adverse Reactions: No Known Allergies Allergy (Verified 05/10/17 15:01) Home Medications: Current Home Medications Amitriptyline HCl [Elavil 25 mg Tablet] 25 mg PO DAILY 05/10/17 [History] Amlodipine Besylate [Norvasc 2.5 mg Tablet] 2.5 mg PO DAILY 05/10/17 [History] Diltiazem HCl [Diltiazem 24Hr ER] 180 mg PO [id number] 05/10/17 [History] Doxepin HCl [[place] 10 mg Capsule] 10 mg PO QHS 05/10/17 [History] Furosemide [Lasix 20 mg Tablet] 20 mg PO DAILY 05/10/17 [History] Iron Polysaccharide Complex [Poly-Iron] 150 mg PO DAILY 05/10/17 [History] Metoprolol Tartrate [Lopressor 50 mg Tablet] 50 mg PO Q12 05/10/17 [History] Pravastatin Sodium [Pravachol] 20 mg PO QPM 05/10/17 [History] Warfarin Sodium [Coumadin] 6 mg PO DAILY 05/10/17 [History] Past Medical History - Social History Smoking Status: Former Smoker Frequency of alcohol use: None Drug Abuse: None Family History: COPD Patient has suicidal ideation: No Patient has homicidal ideation: No - Past Medical History Cardiac Medical History: Reports: Hx Atrial Fibrillation, Hx Coronary Artery Disease, Hx Heart Attack, Hx Hypercholesterolemia, Hx Hypertension Denies: Hx Congestive Heart Failure, Hx DVT Pulmonary Medical History: Reports: Hx Pneumonia Denies: Hx COPD, Hx Tuberculosis Endocrine Medical History: Denies: Hx Diabetes Mellitus Type 2 Renal/ Medical History: Denies: Hx Peritoneal Dialysis Psychiatric Medical History: Denies: Hx Depression Past Surgical History: Reports: Hx Cardiac Surgery - stent, Hx Coronary Stent - Immunizations Hx Diphtheria, Pertussis, Tetanus Vaccination: No - UNK Review of Systems - Review of Systems Constitutional: No symptoms reported EENT: No symptoms reported Cardiovascular: No symptoms reported Respiratory: Short of breath, Wheezing Gastrointestinal: No symptoms reported Genitourinary: No symptoms reported Female Genitourinary: No symptoms reported Musculoskeletal: No symptoms reported Skin: No symptoms reported Hematologic/Lymphatic: No symptoms reported Neurological/Psychological: No symptoms reported -: Yes All other systems reviewed and negative Physical Exam - Vital signs Vitals: Temp Pulse Resp BP Pulse Ox 97.6 F 108 H 20 95/61 L 97 05/10/17 15:01 05/10/17 15:01 05/10/17 15:01 05/10/17 15:01 05/10/17 15:01 Interpretation: Hypotensive - General General appearance: Appears well, Alert - HEENT Head: Normocephalic, Atraumatic Eyes: Normal Pupils: PERRL - Respiratory Respiratory status: No respiratory distress Chest status: Nontender Breath sounds: Normal Chest palpation: Normal - Cardiovascular Rhythm: Irregularly irregular Heart sounds: Normal auscultation Murmur: No - Abdominal Inspection: Normal Distension: No distension Bowel sounds: Normal Tenderness: Nontender Organomegaly: No organomegaly - Back Back: Normal, Nontender - Extremities General upper extremity: Normal inspection, Nontender, Normal color, Normal ROM , Normal temperature General lower extremity: Normal inspection, Nontender, Normal color, Normal ROM , Normal temperature, Normal weight bearing. No: Francheska's sign - Neurological Neuro grossly intact: Yes Cognition: Normal Orientation: AAOx4 Mitch Coma Scale Eye Opening: Spontaneous Mitch Coma Scale Verbal: Oriented [place] Coma Scale Motor: Obeys Commands [place] Coma Scale Total: 15 Speech: Normal Motor strength normal: LUE, RUE, LLE, RLE Sensory: Normal - Psychological Associated symptoms: Normal affect, Normal mood - Skin Skin Temperature: Warm Skin Moisture: Dry Skin Color: Normal Course - Re-evaluation Re-evalutation: 05/10/17 22:34 Patient was initially given a fluid bolus blood pressure has increased nicely. Heart rate has been controlled still in A. fib no signs of RVR. Laboratory studies does show elevation in BNP. Chest x-ray shows pleural effusion with a known right lung mass. Patient's case was discussed with the hospitalist will admit for further evaluation - Vital Signs Vital signs: Temp Pulse Resp BP Pulse Ox 97.6 F 81 20 114/73 93 05/10/17 20:04 05/10/17 20:04 05/10/17 20:04 05/10/17 20:04 05/10/17 20:04 - Laboratory Result Diagrams: 05/10/17 15:45 05/10/17 15:45 Laboratory results interpreted by me: 05/10/17 05/10/17 05/10/17 15:45 15:45 15:45 Hgb 10.5 L Hct 33.4 L MCV 78 L MCH 24.6 L MCHC 31.5 L RDW 19.2 H Lymphocytes % 9.8 L Monocytes % 13.7 H PT 44.6 H APTT 64.6 H Chloride 97 L Glucose 174 H Creatine Kinase 27 L NT-Pro-B Natriuret Pep 05/10/17 15:45 Hgb Hct MCV MCH MCHC RDW Lymphocytes % Monocytes % PT APTT Chloride Glucose Creatine Kinase NT-Pro-B Natriuret Pep 3110 H Discharge - Discharge Clinical Impression: Anasarca, Supratherapeutic INR Congestive heart failure (CHF) Qualifiers: Congestive heart failure type: unspecified congestive heart failure type Congestive heart failure chronicity: unspecified congestive heart failure chronicity Qualified Code(s): I50.9 - Heart failure, unspecified Atrial fibrillation Qualifiers: Atrial fibrillation type: chronic Qualified Code(s): I48.2 - Chronic atrial fibrillation Condition: Good Disposition: ADMITTED INPATIENT Admitting Provider: Hospitalist - Deanne Unit Admitted: Telemetry
[2017-05-10 18:22] LABS: APPEARANCE,URINE CLOUDY; BILIRUBIN,URINE NEGATIVE (NEGATIVE); GLUCOSE, URINE NEGATIVE (NEGATIVE); KETONES,URINE NEGATIVE (NEGATIVE); LEUKOCYTE ESTERASE,URINE LARGE (NEGATIVE); NITRITE,URINE NEGATIVE (NEGATIVE); PROTEIN,URINE 30 mg/dL (NEGATIVE); URINE SPECIFIC GRAVITY 1.006; UROBILINOGEN,URINE NEGATIVE mg/dL (<2.0)
--- NOTE | 2017-05-10 19:50 | EKG REPORT ---
SEVERITY:- ABNORMAL ECG - ATRIAL FIBRILLATION, V-RATE 76-92 LOW VOLTAGE IN FRONTAL LEADS : Confirmed by: Anjel Durbin MD 10-May-2017 19:49:03
--- NOTE | 2017-05-10 19:50 | EKG REPORT ---
SEVERITY:- DEFECTIVE ECG - ATRIAL FIBRILLATION, V-RATE 82-126 RIGHT AXIS DEVIATION LOW VOLTAGE IN FRONTAL LEADS : Confirmed by: Anjel Durbin MD 10-May-2017 19:49:28
--- NOTE | 2017-05-10 20:16 | PDOC H&P ---
History of Present Illness Admission Date/PCP: 05/10/17 17:05 Dr. Devries Cardiology Patient complains of: Swelling of her legs and shortness of breath History of Present Illness: MARTA ROGERS is a 81 year old female with a history of A. fib and CHF right lung mass presents with swelling of both legs. Patient states over the last 2 weeks her legs were getting larger and larger. Patient is now having shortness of breath. Patient went to see her document preparer microfilming and he sent her here to have IV diuresis. Patient only takes 20 of p.o. Lasix at home patient states that she did not notice any increased urination with this dose. Patient states she normally weighs 112 and now weighs 123 pounds. Patient states she is short of breath with walking she has difficulty lying flat, she is short of breath at rest but does not have any chest pain. In the ED patient was found to have a BNP of 3000. She is also a little hypotensive at 95/61 and was given a small bolus. Patient was also slightly tachycardic however this resolved with rest. Hospitalist was called to further evaluate patient and admit patient for CHF exacerbation and IV diuresis. Past Medical History Cardiac Medical History: Reports: Atrial Fibrillation, Coronary Artery Disease, Myocardial Infarction, Hyperlipidema, Hypertension Denies: Congestive Heart Failure, DVT Pulmonary Medical History: Reports: Pneumonia Denies: Chronic Obstructive Pulmonary Disease (COPD), Tuberculosis Endocrine Medical History: Denies: Diabetes Mellitus Type 2 Psychiatric Medical History: Denies: Depression Past Surgical History Past Surgical History: Reports: Coronary Stent Social History Smoking Status: Former Smoker Frequency of Alcohol Use: None Hx Recreational Drug Use: No Drugs: None Hx Prescription Drug Abuse: No - Advance Directive Resuscitation Status: Full Code Family History Family History: COPD Parental Family History Reviewed: Yes Children Family History Reviewed: Yes Sibling(s) Family History Reviewed.: Yes Medication/Allergy Home Medications: Amitriptyline HCl [Elavil 25 mg Tablet] 25 mg PO DAILY 05/10/17 Amlodipine Besylate [Norvasc 2.5 mg Tablet] 2.5 mg PO DAILY 05/10/17 Diltiazem HCl [Diltiazem 24Hr ER] 180 mg PO [id number] 05/10/17 Doxepin HCl [Sinequan 10 mg Capsule] 10 mg PO QHS 05/10/17 Furosemide [Lasix 20 mg Tablet] 20 mg PO DAILY 05/10/17 Iron Polysaccharide Complex [Poly-Iron] 150 mg PO DAILY 05/10/17 Metoprolol Tartrate [Lopressor 50 mg Tablet] 50 mg PO Q12 05/10/17 Pravastatin Sodium [Pravachol] 20 mg PO QPM 05/10/17 Warfarin Sodium [Coumadin] 6 mg PO DAILY 05/10/17 Allergies/Adverse Reactions: No Known Allergies Allergy (Verified 05/10/17 15:01) Review of Systems Constitutional: PRESENT: weight gain Eyes: ABSENT: visual disturbances Ears: ABSENT: hearing changes Cardiovascular: PRESENT: dyspnea on exertion, edema, orthropnea. ABSENT: chest pain Respiratory: PRESENT: dyspnea Gastrointestinal: PRESENT: bloating Genitourinary: ABSENT: dysuria Musculoskeletal: ABSENT: joint swelling Integumentary: ABSENT: rash Psychiatric: PRESENT: anxiety Physical Exam Vital Signs: Temp Pulse Resp BP Pulse Ox 98.1 F 108 H 19 117/81 98 05/10/17 19:00 05/10/17 15:01 05/10/17 19:01 05/10/17 19:00 05/10/17 19:16 Intake & Output 05/09/17 05/10/17 05/11/17 06:59 06:59 06:59 Output Total 828 Balance -828 General appearance: PRESENT: no acute distress, cooperative, other - Elderly Eye exam: PRESENT: EOMI Neck exam: PRESENT: full ROM. ABSENT: JVD Respiratory exam: PRESENT: crackles, decreased breath sounds, unlabored Cardiovascular exam: PRESENT: RRR GI/Abdominal exam: PRESENT: distended, normal bowel sounds, soft Rectal exam: PRESENT: deferred Extremities exam: PRESENT: +2 edema Neurological exam: PRESENT: alert, awake, oriented to person, oriented to place , oriented to time, CN II-XII grossly intact Psychiatric exam: PRESENT: normal mood Results Laboratory Results: 05/10/17 17:57 Urine Color YELLOW Urine Appearance CLOUDY Urine pH 6.[address] 1.006 Urine Protein 30 H Urine Glucose (UA) NEGATIVE Urine Ketones NEGATIVE Urine Blood LARGE H Urine Nitrite NEGATIVE Ur Leukocyte Esterase LARGE H Urine WBC (Auto) >182 Urine RBC (Auto) 27 Impressions: Chest X-Ray 05/10/17 15:27 IMPRESSION: Significant increase in density at the right base since previous chest x-ray of 02/18/2017 represented by pleural effusion and possible underlying pathology-mass or infiltrate. Small left pleural effusion. Assessment & Plan - Diagnosis (1) Anasarca Is this a current diagnosis for this admission?: Yes Plan: Patient has some swelling of her lower extremities. Patient may have diastolic dysfunction resulting in anasarca as her renal function is normal. Patient had a fairly normal echo in the past however that was in 2012. Will repeat her cardiac echo at this time. Patient had Anders catheter placed and patient started on metolazone 2.5 along with Lasix 40 mg IV push 3 times daily. (2) Congestive heart failure (CHF) Qualifiers: Congestive heart failure type: unspecified congestive heart failure type Congestive heart failure chronicity: unspecified congestive heart failure chronicity Qualified Code(s): I50.9 - Heart failure, unspecified Is this a current diagnosis for this admission?: Yes Plan: She had normal cardiac function in the past however her current presentation is consistent with congestive heart failure. Will repeat her cardiac echo at this time. Patient continued on her metoprolol however at a lower dose of 12.5 mg p.o. twice daily as patient blood pressures are low normal and she will be receiving aggressive diuresis for her anasarca. Patient BNP is 3000 her troponin is negative. Will monitor daily weights, strict ins and out with Anders in place. Patient on fluid restriction and low-sodium diet. (3) Supratherapeutic INR Plan: Patient on Coumadin for her A. fib with RVR. Patient is currently supratherapeutic will hold Coumadin and repeat coags in the morning. (4) Atrial fibrillation with rapid ventricular response Is this a current diagnosis for this admission?: Yes Plan: Patient is currently in sinus rhythm she takes Cardizem and metoprolol. Will resume her metoprolol at 12.5 mg p.o. twice daily hold her Cardizem at this time. Will monitor her electrolytes her potassium and magnesium in particular and replace as needed. - Time Time Spent: 30 to 50 Minutes Medications reviewed and adjusted accordingly: Yes Anticipated discharge: Home Within: within 72 hours - Patient has extensive edema and will require aggressive diuresis with close monitoring of her electrolytes and renal function.
[2017-05-10] MEDS ORDERED: METOPROLOL TARTRATE 25 MG TABLET PO SCH (22:00)
[2017-05-10] MEDS ORDERED: CARVEDILOL 3.125 MG TABLET PO SCH (22:00)
[2017-05-10] MEDS: FUROSEMIDE INJ/PF 40 MG/4 ML SDV IV SCH (22:42)
[2017-05-10] MEDS: DOXEPIN HCL 10 MG CAPSULE PO SCH (22:42)
[2017-05-11] MEDS: LANSOPRAZOLE 15 MG TAB.RAP.DR PO SCH ×2 (06:46→17:30)
[2017-05-11] MEDS: FUROSEMIDE INJ/PF 40 MG/4 ML SDV IV SCH ×3 (06:46→22:06)
[2017-05-11 07:14] LABS: ANION GAP 7 (5-19); BLOOD UREA NITROGEN 15 mg/dL (7-20); CALCIUM 8.8 mg/dL (8.4-10.2); CARBON DIOXIDE 33 mmol/L (22-30); CHLORIDE 98 mmol/L (98-107); CREATININE RESULT 0.63 mg/dL (0.52-1.25); GLUCOSE 100 mg/dL (75-110); MAGNESIUM 1.7 mg/dL (1.6-2.3); POTASSIUM 3.2 mmol/L (3.6-5.0); SODIUM 138.1 mmol/L (137-145)
[2017-05-11 07:39] LABS: THYROID STIMULATING HORMONE 1.18 uIU/mL (0.47-4.68)
[2017-05-11] MEDS ORDERED: MAGNESIUM SULFATE/D5W 1 GM/100 ML RTUPB IV SCH ×2 (08:45→09:30)
[2017-05-11] MEDS ORDERED: POTASSIUM CHLORIDE 20 MEQ/15 ML UDCUP PO ONE (09:30)
[2017-05-11] MEDS: POTASSIUM CHLORIDE 20 MEQ/15 ML UDCUP PO SCH (09:52)
[2017-05-11] MEDS: AMITRIPTYLINE HCL 25 MG TABLET PO SCH (09:53)
[2017-05-11] MEDS: METOLAZONE 2.5 MG TABLET PO SCH (09:53)
[2017-05-11] MEDS: IRON POLYSACCHARIDES COMPLEX 150 MG CAPSULE PO SCH (09:53)
[2017-05-11] MEDS: ASPIRIN 81 MG TABLET, ENT COATED PO SCH (09:54)
[2017-05-11] MEDS: DOCUSATE SODIUM 100 MG CAPSULE PO SCH (09:54)
[2017-05-11] MEDS ORDERED: ONDANSETRON HCL INJ/PF 4 MG/2 ML SDV IV PRN (10:00)
[2017-05-11] MEDS ORDERED: POTASSIUM CHLORIDE 10 MEQ TABLET.SA PO SCH (10:00)
[2017-05-11] MEDS ORDERED: CARVEDILOL 3.125 MG TABLET PO SCH (10:00)
[2017-05-11] MEDS ORDERED: NORMAL SALINE 500 ML IV PRN (16:57)
[2017-05-11] MEDS ORDERED: METOPROLOL TARTRATE PF/INJ 5 MG/5 ML SDV IV ONE (17:30)
[2017-05-11] MEDS: METOPROLOL TARTRATE 25 MG TABLET PO SCH (17:30)
[2017-05-11 17:51] LABS: ANION GAP 9 (5-19); BLOOD UREA NITROGEN 14 mg/dL (7-20); CALCIUM 8.8 mg/dL (8.4-10.2); CARBON DIOXIDE 38 mmol/L (22-30); CHLORIDE 87 mmol/L (98-107); CREATININE RESULT 0.63 mg/dL (0.52-1.25); GLUCOSE 179 mg/dL (75-110); POTASSIUM 3.3 mmol/L (3.6-5.0); SODIUM 134.1 mmol/L (137-145)
[2017-05-11] MEDS ORDERED: METOPROLOL TARTRATE 25 MG TABLET PO SCH (22:00)
[2017-05-11] MEDS: DOXEPIN HCL 10 MG CAPSULE PO SCH (22:06)
[2017-05-11] MEDS: SIMVASTATIN 10 MG TABLET PO SCH (22:06)
--- NOTE | 2017-05-12 00:39 | PDOC PROGRESS REPORT ---
Subjective Progress Note for:: 05/11/17 Subjective:: She doing well this morning stating she is not able to lift her legs. However later on in a day patient did go into A. fib with RVR after being transitioned to Coreg p.o. twice daily. Patient was switched back to metoprolol. Physical Exam Vital Signs: Temp Pulse Resp BP Pulse Ox 97.8 F 71 17 108/61 98 05/11/17 19:38 05/11/17 19:38 05/11/17 19:38 05/11/17 19:38 05/11/17 19:38 Intake & Output 05/10/17 05/11/17 05/12/17 06:59 06:59 06:59 Intake Total 178 1240 Output Total 3828 2400 Balance -3650 -1160 Weight 57.1 kg General appearance: PRESENT: no acute distress Head exam: PRESENT: normocephalic Eye exam: PRESENT: EOMI Neck exam: PRESENT: full ROM Respiratory exam: PRESENT: clear to auscultation rojelio, unlabored - Crackles at lung bases Cardiovascular exam: PRESENT: RRR GI/Abdominal exam: PRESENT: normal bowel sounds, soft. ABSENT: tenderness Gentrourinary exam: PRESENT: indwelling catheter Extremities exam: PRESENT: +2 edema - Bilateral pedal edema significantly improved still with sacral edema. Musculoskeletal exam: PRESENT: full ROM, normal inspection. ABSENT: tenderness Neurological exam: PRESENT: alert, awake, oriented to person, oriented to place , oriented to time, oriented to situation, CN II-XII grossly intact Psychiatric exam: PRESENT: normal mood Skin exam: PRESENT: intact, warm Results Laboratory Results: 05/11/17 17:30 05/11/17 05/11/17 05/11/17 06:18 06:18 17:30 Sodium 138.1 134.1 L Potassium 3.2 L 3.3 L Chloride 98 87 L Carbon Dioxide 33 H 38 H Anion Gap 7 9 BUN 15 14 Creatinine 0.63 0.63 Est GFR ( Amer) > 60 > 60 Est GFR (Non-Af Amer) > 60 > 60 Glucose 100 179 H Calcium 8.8 8.8 Magnesium 1.7 2.0 TSH 1.18 Free T4 1.62 05/10/17 05/11/17 05/11/17 23:54 06:18 12:27 Troponin I < 0.012 < 0.012 < 0.012 Impressions: Chest X-Ray 05/10/17 15:27 IMPRESSION: Significant increase in density at the right base since previous chest x-ray of 02/18/2017 represented by pleural effusion and possible underlying pathology-mass or infiltrate. Small left pleural effusion. Assessment & Plan - Diagnosis (1) Anasarca Is this a current diagnosis for this admission?: Yes Plan: Patient has swelling of her lower extremities into her abdomen and sacrum. Patient almost -4 L fluid balance with Lasix 40 mg q. 8 IV and metolazone 2.5 mg p.o. daily. Will continue this regimen. Cardiac echo completed however not read. Did have a talk with Dr. Durbin management of this patient. Anders is still in place. (2) Congestive heart failure (CHF) Qualifiers: Congestive heart failure type: unspecified congestive heart failure type Congestive heart failure chronicity: unspecified congestive heart failure chronicity Qualified Code(s): I50.9 - Heart failure, unspecified Is this a current diagnosis for this admission?: Yes Plan: She had normal cardiac function in the past however her current presentation is consistent with congestive heart failure. Cardiac echo repeated however awaiting read. Patient almost -4 L fluid balance. However her weight was recorded as 57.1 kg which is up from before will ask that patient have standing weights if possible. Will monitor daily weights, strict ins and out with Anders in place. Patient on fluid restriction and low-sodium diet. Patient on metoprolol. Did attempt to transition patient to Coreg however patient went into A. fib with RVR therefore Coreg was discontinued and metoprolol resumed. (3) Supratherapeutic INR Is this a current diagnosis for this admission?: Yes Plan: Patient on Coumadin for her A. fib with RVR. Patient is currently supratherapeutic. Continue holding Coumadin and repeat INR in the a.m. (4) Atrial fibrillation with rapid ventricular response Is this a current diagnosis for this admission?: Yes Plan: Patient went into A. fib with RVR with heart rates into the 150s. Patient was transitioned back to metoprolol after given a dose IV push. Patient is on 12.5 mg p.o. every 6 to hold for heart rate less than 60. Patient magnesium is 2. Patient potassium is being replaced aggressively patient is not doing well with drinking the oral potassium and states that the pills are too large therefore IV potassium will have to be given. (5) Hypokalemia Is this a current diagnosis for this admission?: Yes Plan: Receiving IV replacement along with oral replacement. He potassium was 3.3. Because patient went into A. fib with RVR IV potassium is being given at this time. Follow-up potassium in a.m. - Time Time Spent with patient: Less than 15 minutes Anticipated discharge: Home with Homehealth Within: within 72 hours - She still requires aggressive diuresis. Over 6 L of fluids have been removed. Also patient heart rate will require better control prior to discharge. Please feel free to contact her professional fighter # [phone].
[2017-05-12] MEDS: METOPROLOL TARTRATE 25 MG TABLET PO SCH ×2 (00:47→05:38)
[2017-05-12] MEDS: POTASSI CL 20 MEQ/50 ML RIDER 20 MEQ/50 ML RTUPB IV SCH ×4 (01:05→07:38)
[2017-05-12] MEDS: LANSOPRAZOLE 15 MG TAB.RAP.DR PO SCH ×2 (05:38→16:22)
[2017-05-12] MEDS: FUROSEMIDE INJ/PF 40 MG/4 ML SDV IV SCH (05:38)
[2017-05-12 05:52] LABS: PROTHROMBIN TIME 25.2 SEC (11.4-15.4)
[2017-05-12 06:02] LABS: BLOOD UREA NITROGEN 12 mg/dL (7-20); CALCIUM 8.7 mg/dL (8.4-10.2); CHLORIDE 88 mmol/L (98-107); CREATININE RESULT 0.66 mg/dL (0.52-1.25); GLUCOSE 102 mg/dL (75-110); MAGNESIUM 1.8 mg/dL (1.6-2.3); POTASSIUM 3.7 mmol/L (3.6-5.0)
[2017-05-12 06:19] LABS: ANION GAP 8 (5-19); SODIUM 134.6 mmol/L (137-145)
[2017-05-12 06:22] LABS: CARBON DIOXIDE 39 mmol/L (22-30)
[2017-05-12 07:07] LABS: FOLATE 6.95 ng/mL (>2.76)
--- NOTE | 2017-05-12 09:24 | RADIOLOGY REPORT (SQ) ---
EXAM DESCRIPTION: CHEST SINGLE VIEW COMPLETED DATE/TIME: 05/12/2017 8:29 am REASON FOR STUDY: Right pleural effusion COMPARISON: 05/10/2017. EXAM PARAMETERS: NUMBER OF VIEWS: One view. TECHNIQUE: Single frontal radiographic view of the chest acquired. RADIATION DOSE: NA LIMITATIONS: None. FINDINGS: LUNGS AND PLEURA: Basilar densities with pleural effusions. Right pleural effusion has de creased. No pneumothorax. Chronic pleural thickening with calcifications. MEDIASTINUM AND HILAR STRUCTURES: No masses. Contour normal. HEART AND VASCULAR STRUCTURES: Heart normal in size. Normal vasculature. BONES: No acute findings. HARDWARE: None in the chest. OTHER: No other significant finding. IMPRESSION: BASILAR DENSITIES WITH PLEURAL EFFUSIONS. RIGHT PLEURAL EFFUSION HAS DECREASED IN SIZE. TECHNICAL DOCUMENTATION: JOB ID: [id number]
[2017-05-12] MEDS: POTASSIUM CHLORIDE 20 MEQ/15 ML UDCUP PO SCH (10:28)
[2017-05-12] MEDS: DOCUSATE SODIUM 100 MG CAPSULE PO SCH (10:28)
[2017-05-12] MEDS: ASPIRIN 81 MG TABLET, ENT COATED PO SCH (10:29)
[2017-05-12] MEDS: METOLAZONE 2.5 MG TABLET PO SCH (10:30)
[2017-05-12] MEDS: IRON POLYSACCHARIDES COMPLEX 150 MG CAPSULE PO SCH (10:30)
[2017-05-12] MEDS: AMITRIPTYLINE HCL 25 MG TABLET PO SCH (10:31)
[2017-05-12] MEDS ORDERED: NORMAL SALINE 250 ML IV ONE (11:00)
[2017-05-12] MEDS: MAGNESIUM OXIDE 400 MG TABLET PO SCH (12:41)
[2017-05-12] MEDS ORDERED: CARVEDILOL 3.125 MG TABLET PO ONE (13:00)
--- NOTE | 2017-05-12 13:01 | PDOC PROGRESS REPORT ---
Subjective Progress Note for:: 05/12/17 Subjective:: Patient was seen this morning at the bedside. In addition to this the patient was discussed earlier this morning with her outpatient platform loader Dr. Durbin. Unfortunately overnight the patient had a drop in her blood pressure down to the 80s which persisted to this morning. She also had a increase in her pulse to the 150s/160s. This was associated with atrial fibrillation. She received metoprolol 12.5 mg at 538 this morning. Based on my discussion with her outpatient platform loader and my assessment of her at the bedside the patient appears to have been over diuresed. In speaking with the patient the patient feels that her swelling is much better than what it was when she first came in and that her stomach and legs have gone down in their distention and swelling respectively. The patient feels that she is a little bit dry in terms of her mucous membranes. She denies any chest pain, palpitations, shortness of breath. She has been up to the bathroom today and says that she feels fine and steady on her feet. She has not ambulated the halls. She tells me that she uses oxygen at home nightly but does not know why. Physical Exam Vital Signs: Temp Pulse Resp BP Pulse Ox 97.8 F 26 L 15 116/78 98 05/12/17 11:24 05/12/17 11:24 05/12/17 11:24 05/12/17 10:00 05/12/17 11:24 Intake & Output 05/11/17 05/12/17 05/13/17 06:59 06:59 06:59 Intake Total 178 2348 Output Total 3828 4300 Balance -3649 Weight 57.1 kg 57.1 kg GENERAL: Well-developed thin, elderly white female resting in bed currently in no acute distress HEART: Irregularly irregular rhythm, tachycardic. It is unclear whether or not there are any murmurs or gallops or rubs secondary to her fast heart rate. LUNGS: Clear to auscultation bilaterally with equal rise and fall of the chest. Breathing is not labored. She currently is on oxygen via nasal cannula. ABDOMEN: Soft, nontender, minimal distention with normoactive bowel sounds EXTREMETIES: No clubbing, cyanosis. 2+ pitting edema up through the shins. 1+ peripheral pulses bilaterally. NEURO: Awake, alert and oriented 3. Cranial nerves II through XII are grossly intact. Results Laboratory Results: 05/12/17 05:31 05/11/17 05/12/17 05/12/17 17:30 05:31 05:31 Retic Count (auto) 1.52 Absolute Retic 0.062 Sodium 134.1 L 134.6 L Potassium 3.3 L 3.7 Chloride 87 L 88 L Carbon Dioxide 38 H 39 H Anion Gap 9 8 BUN 14 12 Creatinine 0.63 0.66 Est GFR ( Amer) > 60 > 60 Est GFR (Non-Af Amer) > 60 > 60 Glucose 179 H 102 Calcium 8.8 8.7 Magnesium 2.0 1.8 Iron 37.6 TIBC 413 % Saturation 9 Ferritin 41.30 Vitamin B12 735.0 Folate 6.95 05/10/17 05/11/17 05/11/17 23:54 06:18 12:27 Troponin I < 0.012 < 0.012 < 0.012 Impressions: Chest X-Ray 05/12/17 07:00 IMPRESSION: BASILAR DENSITIES WITH PLEURAL EFFUSIONS. RIGHT PLEURAL EFFUSION HAS DECREASED IN SIZE. Assessment & Plan - Diagnosis (1) Congestive heart failure (CHF) Qualifiers: Congestive heart failure type: systolic Congestive heart failure chronicity : acute on chronic Qualified Code(s): I50.23 - Acute on chronic systolic ( congestive) heart failure Is this a current diagnosis for this admission?: Yes Plan: Patient is currently on Zaroxolyn as well as furosemide 40 mg every 8 hours. She is also receiving metoprolol 12.5 mg every 6 hours. The patient had been on Coreg yesterday; but when she went into rapid ventricular response this was switched back to metoprolol. The patient has diuresed quite well in reviewing her I's and O's. Unfortunately, I think that we have dried her out a bit too much. Therefore, we will discontinue her furosemide for now. We will give her back a little bit of fluid with a 250 cc bolus. Her blood pressure is now up to 102. Hopefully this will increase after the bolus at which time I will reinstitute her Coreg at 3.125 mg twice a day. We will keep a close eye on her ventricular rate. Hopefully with the addition of fluid and Coreg this will calm down. Cardiology is following. For now the patient is asymptomatic and we will continue to monitor. (2) Hypokalemia Is this a current diagnosis for this admission?: Yes Plan: This was replaced and is resolved. Currently her potassium is at 3.7. She is receiving a K rider at the bedside. I have asked the nursing staff to put this on hold and preference for administration of her bolus. We will try and maintain her potassium at 4 above. We will change her daily potassium from liquid to p.o. and reduce it to 20 a day. (3) Supratherapeutic INR Is this a current diagnosis for this admission?: Yes Plan: Resume Coumadin at home doses. Daily PT and INR. Admission INR was 4 and is now down to 2 today. Coumadin may need to be adjusted at a lower dose. But we will start with her home regimen and see which direction it trends. (4) Atrial fibrillation with rapid ventricular response Is this a current diagnosis for this admission?: Yes Plan: The patient is currently tachycardic with heart rates ranging between 150-160. We will discontinue the furosemide for now. We will give her 250 cc bolus. Resume Coreg today. Resume Coumadin today as well. (5) Hypotension Qualifiers: Hypotension type: hypotension due to drug Qualified Code(s): I95.2 - Hypotension due to drugs Plan: I suspect the patient's hypotension is secondary to being over diuresis from furosemide. We will hold this as described above. Management as above. (6) Pulmonary hypertension Plan: This was noted on the patient's echocardiogram. At this point she may follow- up as an outpatient with Dr. Scott. She is due to see him again in July. We will find out when this appointment has been scheduled for and see if we can move it up. (7) UTI (urinary tract infection) Qualifiers: Urinary tract infection type: acute cystitis Hematuria presence: without hematuria Qualified Code(s): N30.00 - Acute cystitis without hematuria Is this a current diagnosis for this admission?: Yes Plan: Patient had a urinalysis with positivity for bacteria, leukocyte esterase in the setting of few epithelial cells. We will send this for culture. She does have a Anders catheter in place but this was found on admission. I am going to start her on empiric Rocephin for now. Hopefully her hypotension is more sore reflection of being over diuresed as opposed to underlying urinary tract infection and associated sepsis. We will continue to monitor. - Time Time Spent with patient: 35 or more minutes Anticipated discharge: Home Within: within 72 hours - Inpatient Certification Medical Necessity: Need Close Monitoring Due to Risk of Patient Decompensation
[2017-05-12 13:51] LABS: PROTHROMBIN TIME 21.6 SEC (11.4-15.4)
[2017-05-12] MEDS ORDERED: NORMAL SALINE 1000 ML 1,000 ML IV PRN (13:52)
[2017-05-12] MEDS ORDERED: CEFTRIAXONE 1 GM/D5W RTU 1 GM/50 ML RTUPB IV SCH (14:00)
[2017-05-12] MEDS ORDERED: WARFARIN SODIUM 3 MG TABLET PO ONE (18:00)
[2017-05-12] MEDS ORDERED: DILTIAZEM HCL/D5W 125 MG/125 ML RTUINJ IV ONE (18:17)
[2017-05-12] MEDS ORDERED: DILTIAZEM HCL INJ 25 MG/5 ML VIAL IV ONE (18:22)
[2017-05-12] MEDS ORDERED: DILTIAZEM HCL INJ 25 MG/5 ML VIAL ONE (18:24)
--- NOTE | 2017-05-12 18:28 | Progress Note ---
Provider Note Provider Note: The patient has remained in atrial fibrillation all day today. Her rates have been as high as 160. I received a phone call that she crossed over into the 170s at one point. Patient therefore will be moved down to [facility] level care on a Cardizem drip started. The patient has already received a K rider today. Her potassium was 3.7 prior to this. It will be rechecked again tomorrow. She is also receiving p.o. magnesium already. Cardizem will be initiated with a 10 mg bolus as well as a drip for titration. The goal will be to keep her heart rate at 110 or less. Coreg will remain in place. The patient will receive a 250 cc bolus of her blood pressure is below 100 at the initiation of the Cardizem drip. If not, she may continue on maintenance fluid rate of 75 cc/h. Zaroxolyn and Lasix have each been held. This plan was shared with Dr. WILLSON
--- NOTE | 2017-05-12 19:32 | EKG REPORT ---
SEVERITY:- ABNORMAL ECG - ATRIAL FIBRILLATION WITH RAPID V-RATE LOW VOLTAGE IN FRONTAL LEADS BORDERLINE T ABNORMALITIES, LATERAL LEADS : Confirmed by: Anjel Durbin MD 12-May-2017 19:31:15
[2017-05-12] MEDS: SIMVASTATIN 10 MG TABLET PO SCH (21:57)
[2017-05-12] MEDS: CARVEDILOL 3.125 MG TABLET PO SCH (21:57)
[2017-05-12] MEDS: DOXEPIN HCL 10 MG CAPSULE PO SCH (21:57)
[2017-05-12] MEDS ORDERED: CARVEDILOL 3.125 MG TABLET PO SCH (22:00)
[2017-05-13 06:29] LABS: ABSOLUTE BASOPHILS # (AUTO) 0.1 10^3/uL (0.0-0.2); ABSOLUTE EOSINOPHILS # (AUTO) 0.5 10^3/uL (0.0-0.6); ABSOLUTE LYMPHOCYTES (AUTO) 1.5 10^3/uL (0.5-4.7); ABSOLUTE MONOCYTES (AUTO) 1.2 10^3/uL (0.1-1.4); ABSOLUTE NEUT (AUTO) 3.9 10^3/uL (1.7-8.2); BASOPHILS % (AUTO) 1.3 % (0-2); EOSINOPHILS % (AUTO) 7.2 % (0-6); HEMATOCRIT 29.3 % (36.0-47.0); HEMOGLOBIN 9.3 g/dL (12.0-15.5); HGB HCT DIFFERENCE -1.4; LYMPHOCYTES % (AUTO) 20.9 % (13-45); MEAN CORPUSCULAR HEMOGLOBIN 24.3 pg (27.0-33.4); MEAN CORPUSCULAR HGB CONC 31.7 g/dL (32.0-36.0); MEAN CORPUSCULAR VOLUME 77 fl (80-97); MONOCYTES % (AUTO) 16.5 % (3-13); RED BLOOD COUNT 3.82 10^6/uL (3.72-5.28); RED CELL DISTRIBUTION WIDTH 19.4 % (11.5-14.0); SEGMENTED NEUTROPHILS % (AUTO) 54.1 % (42-78); WHITE BLOOD COUNT 7.3 10^3/uL (4.0-10.5)
[2017-05-13] MEDS: LANSOPRAZOLE 15 MG TAB.RAP.DR PO SCH ×2 (06:37→17:42)
[2017-05-13 06:42] LABS: ANION GAP 6 (5-19); BLOOD UREA NITROGEN 12 mg/dL (7-20); CALCIUM 8.4 mg/dL (8.4-10.2); CARBON DIOXIDE 35 mmol/L (22-30); CHLORIDE 92 mmol/L (98-107); CREATININE RESULT 0.57 mg/dL (0.52-1.25); GLUCOSE 99 mg/dL (75-110); MAGNESIUM 1.9 mg/dL (1.6-2.3); POTASSIUM 3.1 mmol/L (3.6-5.0); SODIUM 132.7 mmol/L (137-145)
[2017-05-13] MEDS ORDERED: CARVEDILOL 6.25 MG TABLET PO ONE ×3 (07:45→21:15)
[2017-05-13] MEDS ORDERED: POTASSI CL 20 MEQ/50 ML RIDER 20 MEQ/50 ML RTUPB IV ONE (08:30)
[2017-05-13] MEDS ORDERED: (PENDING PHARMACY ID) (Warfarin Sodium [Coumadin] 6 MG) PO SCH (10:00)
[2017-05-13] MEDS ORDERED: DILTIAZEM HCL/D5W 125 MG/125 ML RTUINJ IV PRN ×2 (10:53→19:31)
[2017-05-13] MEDS: IRON POLYSACCHARIDES COMPLEX 150 MG CAPSULE PO SCH (10:58)
[2017-05-13] MEDS: DOCUSATE SODIUM 100 MG CAPSULE PO SCH (10:59)
[2017-05-13] MEDS: POTASSIUM CHLORIDE 10 MEQ TABLET.SA PO SCH (10:59)
[2017-05-13] MEDS: WARFARIN SODIUM 3 MG TABLET PO SCH (11:01)
[2017-05-13] MEDS: CARVEDILOL 3.125 MG TABLET PO SCH (11:02)
[2017-05-13] MEDS: AMITRIPTYLINE HCL 25 MG TABLET PO SCH (11:02)
[2017-05-13] MEDS: ASPIRIN 81 MG TABLET, ENT COATED PO SCH (11:02)
[2017-05-13] MEDS: CEFTRIAXONE 1 GM/D5W RTU 1 GM/50 ML RTUPB IV SCH (11:03)
[2017-05-13] MEDS: MAGNESIUM OXIDE 400 MG TABLET PO SCH (11:09)
[2017-05-13 13:24] LABS: PROTHROMBIN TIME 19.9 SEC (11.4-15.4)
--- NOTE | 2017-05-13 15:45 | PDOC PROGRESS REPORT ---
Subjective Progress Note for:: 05/13/17 Subjective:: This is a follow-up visit for Richar mckeon with rapid ventricular response. The patient did quite well overnight with Cardizem drip. Dr. WILLSON added an extra dose of Coreg onto her regimen. However it is noted that the patient heart rate goes up to the 120s 130s whenever she is up and moving. At rest she is anywhere between 90 and 103. She still denies any chest pain or shortness of breath.. Physical Exam Vital Signs: Temp Pulse Resp BP Pulse Ox 98.0 F 126 H 18 116/60 96 05/13/17 12:05 05/13/17 12:05 05/13/17 12:05 05/13/17 06:00 05/13/17 12:05 Intake & Output 05/12/17 05/13/17 05/14/17 06:59 06:59 06:59 Intake Total 2348 1658 237 Output Total 4300 1325 700 Balance -1952 333 -463 Weight 57.1 kg 71.8 kg GENERAL: Well-developed thin, elderly white female resting in bed currently in no acute distress HEART: Irregularly irregular rhythm, tachycardic. LUNGS: Clear to auscultation bilaterally with equal rise and fall of the chest. Breathing is not labored. She currently is on oxygen via nasal cannula. ABDOMEN: Soft, nontender, minimal distention with normoactive bowel sounds EXTREMETIES: No clubbing, cyanosis. trace pitting edema up through the shins. 1+ peripheral pulses bilaterally. NEURO: Awake, alert and oriented 3. Cranial nerves II through XII are grossly intact. Results Laboratory Results: 05/13/17 06:10 05/13/17 06:10 05/12/17 05/12/17 05/13/17 05:31 17:04 06:10 WBC 7.3 RBC 3.82 Hgb 9.3 L Hct 29.3 L MCV 77 L MCH 24.3 L MCHC 31.7 L RDW 19.4 H Plt Count 304 Seg Neutrophils % 54.1 Lymphocytes % 20.9 Monocytes % 16.5 H Eosinophils % 7.2 H Basophils % 1.3 Absolute Neutrophils 3.9 Absolute Lymphocytes 1.5 Absolute Monocytes 1.2 Absolute Eosinophils 0.5 Absolute Basophils 0.1 Sodium Potassium Chloride Carbon Dioxide Anion Gap BUN Creatinine Est GFR ( Amer) Est GFR (Non-Af Amer) Glucose Calcium Magnesium Transferrin 307 Stool Occult Blood NEGATIVE 05/13/17 06:10 WBC RBC Hgb Hct MCV MCH MCHC RDW Plt Count Seg Neutrophils % Lymphocytes % Monocytes % Eosinophils % Basophils % Absolute Neutrophils Absolute Lymphocytes Absolute Monocytes Absolute Eosinophils Absolute Basophils Sodium 132.7 L Potassium 3.1 L Chloride 92 L Carbon Dioxide 35 H Anion Gap 6 BUN 12 Creatinine 0.57 Est GFR ( Amer) > 60 Est GFR (Non-Af Amer) > 60 Glucose 99 Calcium 8.4 Magnesium 1.9 Transferrin Stool Occult Blood 05/10/17 05/11/17 05/11/17 23:54 06:18 12:27 Troponin I < 0.012 < 0.012 < 0.012 Impressions: Chest X-Ray 05/12/17 07:00 IMPRESSION: BASILAR DENSITIES WITH PLEURAL EFFUSIONS. RIGHT PLEURAL EFFUSION HAS DECREASED IN SIZE. Assessment & Plan - Diagnosis (1) Congestive heart failure (CHF) Qualifiers: Congestive heart failure type: systolic Congestive heart failure chronicity : acute on chronic Qualified Code(s): I50.23 - Acute on chronic systolic ( congestive) heart failure Is this a current diagnosis for this admission?: Yes Plan: Patient was currently on Zaroxolyn as well as furosemide 40 mg every 8 hours. This has been on hold for the last 48 hours. She was on Cardizem drip overnight for A. fib with RVR. She is currently off and received an extra dose of Coreg as per Dr. WILLSON. (2) Hypokalemia Is this a current diagnosis for this admission?: Yes Plan: Continue supplementation. (3) Supratherapeutic INR Is this a current diagnosis for this admission?: Yes Plan: Continue Coumadin at 6 mg daily. INR is 1.5 today. (4) Atrial fibrillation with rapid ventricular response Is this a current diagnosis for this admission?: Yes Plan: Increase Coreg to 6.25 twice daily. Monitor blood pressure. (5) Hypotension Qualifiers: Hypotension type: hypotension due to drug Qualified Code(s): I95.2 - Hypotension due to drugs Plan: I suspect the patient's hypotension is secondary to being over diuresis from furosemide. We will hold this as described above. Management as above. (6) Pulmonary hypertension Plan: This was noted on the patient's echocardiogram. At this point she may follow- up as an outpatient with Dr. Scott. She is due to see him again in July. We will find out when this appointment has been scheduled for and see if we can move it up. (7) UTI (urinary tract infection) Qualifiers: Urinary tract infection type: acute cystitis Hematuria presence: without hematuria Qualified Code(s): N30.00 - Acute cystitis without hematuria Is this a current diagnosis for this admission?: Yes Plan: The patient urine is positive for gram negative rods. We await susceptibilities. Continue Rocephin for now. - Time Time Spent with patient: 15-24 minutes - Inpatient Certification Medical Necessity: Need Close Monitoring Due to Risk of Patient Decompensation
[2017-05-13] MEDS ORDERED: CARVEDILOL 3.125 MG TABLET PO SCH (15:46)
[2017-05-13] MEDS ORDERED: DILTIAZEM HCL 60 MG TABLET PO ONE (21:30)
[2017-05-13] MEDS: CARVEDILOL 6.25 MG TABLET PO SCH (21:49)
[2017-05-13] MEDS: SIMVASTATIN 10 MG TABLET PO SCH (21:51)
[2017-05-13] MEDS: DOXEPIN HCL 10 MG CAPSULE PO SCH (21:51)
[2017-05-13] MEDS ORDERED: CARVEDILOL 6.25 MG TABLET PO SCH (22:00)
[2017-05-14] MEDS ORDERED: DILTIAZEM HCL 60 MG TABLET PO SCH (03:00)
[2017-05-14 06:28] LABS: ANION GAP 8 (5-19); BLOOD UREA NITROGEN 10 mg/dL (7-20); CALCIUM 9.1 mg/dL (8.4-10.2); CARBON DIOXIDE 30 mmol/L (22-30); CHLORIDE 95 mmol/L (98-107); CREATININE RESULT 0.49 mg/dL (0.52-1.25); GLUCOSE 111 mg/dL (75-110); MAGNESIUM 1.8 mg/dL (1.6-2.3); POTASSIUM 3.7 mmol/L (3.6-5.0); SODIUM 133.2 mmol/L (137-145)
[2017-05-14 06:42] LABS: PROTHROMBIN TIME 21.7 SEC (11.4-15.4)
[2017-05-14] MEDS: LANSOPRAZOLE 15 MG TAB.RAP.DR PO SCH ×2 (08:14→18:00)
[2017-05-14] MEDS: WARFARIN SODIUM 3 MG TABLET PO SCH (09:29)
[2017-05-14] MEDS: AMITRIPTYLINE HCL 25 MG TABLET PO SCH (09:32)
[2017-05-14] MEDS: DILTIAZEM HCL 120 MG CAP.SR.24H PO SCH ×2 (09:32→20:59)
[2017-05-14] MEDS: MAGNESIUM OXIDE 400 MG TABLET PO SCH (09:33)
[2017-05-14] MEDS: ASPIRIN 81 MG TABLET, ENT COATED PO SCH (09:33)
[2017-05-14] MEDS: CARVEDILOL 6.25 MG TABLET PO SCH ×2 (09:33→20:59)
[2017-05-14] MEDS: IRON POLYSACCHARIDES COMPLEX 150 MG CAPSULE PO SCH (09:34)
[2017-05-14] MEDS: DOCUSATE SODIUM 100 MG CAPSULE PO SCH (09:34)
[2017-05-14] MEDS: POTASSIUM CHLORIDE 10 MEQ TABLET.SA PO SCH (09:34)
[2017-05-14] MEDS: CEFTRIAXONE 1 GM/D5W RTU 1 GM/50 ML RTUPB IV SCH (09:34)
[2017-05-14] MEDS ORDERED: CARVEDILOL 6.25 MG TABLET PO SCH (10:00)
[2017-05-14 10:08] LABS: TROPONIN I < 0.012 ng/mL
--- NOTE | 2017-05-14 14:34 | PDOC PROGRESS REPORT ---
Subjective Progress Note for:: 05/14/17 Subjective:: This is a follow-up visit for Richar mckeon with rapid ventricular response. The patient was resumed on her Cardizem overnight and did well with this. Her heart rates are now down to the 80s. She has been converted to Cardizem 60 mg with the plan to change her to extended release. She has not yet been up this morning so we do not yet know what her heart rate does when she is moving around. She denies any chest pain, shortness of breath, or malaise. Physical Exam Vital Signs: Temp Pulse Resp BP Pulse Ox 98.0 F 74 18 118/71 97 05/14/17 12:00 05/14/17 12:00 05/14/17 12:00 05/14/17 12:00 05/14/17 12:00 Intake & Output 05/13/17 05/14/17 05/15/17 06:59 06:59 06:59 Intake Total 1658 1779 237 Output Total 1325 1850 200 Balance 333 -71 37 Weight 71.8 kg 72.1 kg GENERAL: Well-developed thin, elderly white female resting in bed currently in no acute distress HEART: Irregularly irregular rhythm. Her heart rate has slowed considerably. No gallops or rubs. 1 out of 6 systolic ejection murmur. LUNGS: Clear to auscultation bilaterally with equal rise and fall of the chest. Breathing is not labored. She currently is on oxygen via nasal cannula. ABDOMEN: Soft, nontender, minimal distention with normoactive bowel sounds EXTREMETIES: No clubbing, cyanosis. Trace edema at best. 1+ peripheral pulses bilaterally. NEURO: Awake, alert and oriented 3. Cranial nerves II through XII are grossly intact. Results Laboratory Results: 05/13/17 06:10 05/14/17 05:53 05/14/17 05:53 Sodium 133.2 L Potassium 3.7 Chloride 95 L Carbon Dioxide 30 Anion Gap 8 BUN 10 Creatinine 0.49 L Est GFR ( Amer) > 60 Est GFR (Non-Af Amer) > 60 Glucose 111 H Calcium 9.1 Magnesium 1.8 05/12/17 10:51 Anders Catheter Urine Culture - Final Escherichia Coli 05/10/17 05/11/17 05/11/17 23:54 06:18 12:27 Troponin I < 0.012 < 0.012 < 0.012 NT-Pro-B Natriuret Pep 05/14/17 09:08 Troponin I < 0.012 NT-Pro-B Natriuret Pep 1310 H Impressions: Chest X-Ray 05/12/17 07:00 IMPRESSION: BASILAR DENSITIES WITH PLEURAL EFFUSIONS. RIGHT PLEURAL EFFUSION HAS DECREASED IN SIZE. Assessment & Plan - Diagnosis (1) Congestive heart failure (CHF) Qualifiers: Congestive heart failure type: systolic Congestive heart failure chronicity : acute on chronic Qualified Code(s): I50.23 - Acute on chronic systolic ( congestive) heart failure Is this a current diagnosis for this admission?: Yes Plan: The patient had diuresed well. In fact some of her fluid had to be given back. Lasix has been on hold. Because the patient is looking quite well we will not start back her furosemide at her home dose of 20 mg. (2) Hypokalemia Is this a current diagnosis for this admission?: Yes Plan: Continue supplementation. (3) Supratherapeutic INR Is this a current diagnosis for this admission?: Yes Plan: Continue Coumadin at 6 mg daily. INR is 1.5 today. (4) Atrial fibrillation with rapid ventricular response Is this a current diagnosis for this admission?: Yes Plan: Continue Coreg 6.25 twice daily as well as 120 mg of Cardizem CR. (5) Hypotension Qualifiers: Hypotension type: hypotension due to drug Qualified Code(s): I95.2 - Hypotension due to drugs Plan: Blood pressures are much more stable. (6) Pulmonary hypertension Plan: This was noted on the patient's echocardiogram. At this point she may follow- up as an outpatient with Dr. Scott. She is due to see him again in July. We will find out when this appointment has been scheduled for and see if we can move it up. (7) UTI (urinary tract infection) Qualifiers: Urinary tract infection type: acute cystitis Hematuria presence: without hematuria Qualified Code(s): N30.00 - Acute cystitis without hematuria Is this a current diagnosis for this admission?: Yes Plan: E. coli urinary tract infection. Patient is currently on Rocephin. Cultures revealed that the organism is susceptible to this. She has already received her dose for today. The organism is lara susceptible. I will stay away from use of quinolones given her Coumadin use. We will transition her to p.o. Augmentin. - Time Time Spent with patient: 15-24 minutes - Inpatient Certification Medical Necessity: Need Close Monitoring Due to Risk of Patient Decompensation
--- NOTE | 2017-05-14 16:04 | EKG REPORT ---
SEVERITY:- ABNORMAL ECG - ATRIAL FIBRILLATION LOW VOLTAGE THROUGHOUT BORDERLINE R WAVE PROGRESSION, ANTERIOR LEADS : Confirmed by: Anjel Durbin MD 14-May-2017 16:03:16
[2017-05-14] MEDS: AMOXICILLIN TR/POT CLAVULANATE 500-125 MG TAB PO SCH (17:59)
[2017-05-14] MEDS: SIMVASTATIN 10 MG TABLET PO SCH (20:59)
[2017-05-14] MEDS: DOXEPIN HCL 10 MG CAPSULE PO SCH (20:59)
[2017-05-14] MEDS ORDERED: DILTIAZEM HCL INJ 25 MG/5 ML VIAL ONE (22:45)
[2017-05-14] MEDS ORDERED: DILTIAZEM HCL INJ 25 MG/5 ML VIAL IV ONE (22:45)
[2017-05-14 23:06] LABS: ANION GAP 9 (5-19); BLOOD UREA NITROGEN 10 mg/dL (7-20); CALCIUM 9.1 mg/dL (8.4-10.2); CARBON DIOXIDE 30 mmol/L (22-30); CHLORIDE 95 mmol/L (98-107); CREATININE RESULT 0.48 mg/dL (0.52-1.25); GLUCOSE 129 mg/dL (75-110); MAGNESIUM 1.9 mg/dL (1.6-2.3); POTASSIUM 3.7 mmol/L (3.6-5.0); SODIUM 134.1 mmol/L (137-145)
[2017-05-15] MEDS ORDERED: POTASSIUM CHLORIDE 20 MEQ/15 ML UDCUP PO ONE (01:15)
[2017-05-15] MEDS: LANSOPRAZOLE 15 MG TAB.RAP.DR PO SCH (05:49)
[2017-05-15 06:40] LABS: PROTHROMBIN TIME 23.9 SEC (11.4-15.4)
[2017-05-15 06:45] LABS: ANION GAP 8 (5-19); BLOOD UREA NITROGEN 10 mg/dL (7-20); CALCIUM 9.2 mg/dL (8.4-10.2); CARBON DIOXIDE 28 mmol/L (22-30); CHLORIDE 98 mmol/L (98-107); CREATININE RESULT 0.52 mg/dL (0.52-1.25); GLUCOSE 116 mg/dL (75-110); MAGNESIUM 1.9 mg/dL (1.6-2.3); POTASSIUM 4.3 mmol/L (3.6-5.0); SODIUM 134.1 mmol/L (137-145)
[2017-05-15] MEDS ORDERED: FUROSEMIDE 20 MG TABLET PO SCH (10:00)
[2017-05-15] MEDS ORDERED: AMOXICILLIN TR/POT CLAVULANATE ES 600-42.9 MG/5 ML 75 ML PO SCH (10:00)
[2017-05-15] MEDS: CARVEDILOL 6.25 MG TABLET PO SCH (10:58)
[2017-05-15] MEDS: MAGNESIUM OXIDE 400 MG TABLET PO SCH (10:58)
[2017-05-15] MEDS: DILTIAZEM HCL 120 MG CAP.SR.24H PO SCH (10:59)
[2017-05-15] MEDS: AMITRIPTYLINE HCL 25 MG TABLET PO SCH (10:59)
[2017-05-15] MEDS: IRON POLYSACCHARIDES COMPLEX 150 MG CAPSULE PO SCH (10:59)
[2017-05-15] MEDS: DOCUSATE SODIUM 100 MG CAPSULE PO SCH (10:59)
[2017-05-15] MEDS: WARFARIN SODIUM 3 MG TABLET PO SCH (10:59)
[2017-05-15] MEDS: AMOXICILLIN TR/POT CLAVULANATE 500-125 MG TAB PO SCH ×2 (10:59→14:48)
[2017-05-15] MEDS: POTASSIUM CHLORIDE 10 MEQ TABLET.SA PO SCH (11:00)
[2017-05-15] MEDS: ASPIRIN 81 MG TABLET, ENT COATED PO SCH (11:00)
[2017-05-15] MEDS ORDERED: MAG HYDROX/AL HYDROX/SIMETH SUSP 30 ML UDCUP PO PRN (11:30)
--- NOTE | 2017-05-15 15:52 | PDOC DISCHARGE SUMMARY ---
General - Admit/Disc Date/PCP Admission Date/Primary Care Provider: 05/10/17 17:05 - Discharge Diagnosis (1) Congestive heart failure (CHF) Is this a current diagnosis for this admission?: Yes Summary: The patient will be discharged home on Cardizem, Coreg, Lasix and metolazone. She will need to follow-up with Dr. WILLSON by the end of the week or early next week. (2) Hypokalemia Is this a current diagnosis for this admission?: Yes Summary: Supplemented and resolved. The patient will be discharged home with a prescription for daily potassium. (3) Supratherapeutic INR Is this a current diagnosis for this admission?: Yes Summary: This is resolved. Continue Coumadin at 6 mg daily. (4) Atrial fibrillation with rapid ventricular response Is this a current diagnosis for this admission?: Yes Summary: Under better control. Consider titrating Cardizem up to 180 as an outpatient if needed. Will defer to Dr. WILLSON (5) Hypotension Summary: Resolved. Likely secondary to overdiuresis here in the hospital. (6) Pulmonary hypertension Summary: Follow-up with PCP as an outpatient. (7) UTI (urinary tract infection) Is this a current diagnosis for this admission?: Yes Summary: E. coli urinary tract infection. The patient is now on Augmentin and should complete a 7 day course for complicated UTI. - Additional Information Resuscitation Status: Full Code Discharge Diet: Cardiac Discharge Activity: Activity As Tolerated, Balance Activity w/Rest, Weigh Daily Home Medications: Amitriptyline HCl [Elavil 25 mg Tablet] 25 mg PO DAILY 05/10/17 Doxepin HCl [Sinequan 10 mg Capsule] 10 mg PO QHS 05/10/17 Furosemide [Lasix 20 mg Tablet] 20 mg PO DAILY 05/10/17 Iron Polysaccharide Complex [Poly-Iron] 150 mg PO DAILY 05/10/17 Pravastatin Sodium [Pravachol] 20 mg PO QPM 05/10/17 Warfarin Sodium [Coumadin] 6 mg PO DAILY 05/10/17 Amox Tr/Potassium Clavulanate [Augmentin "500" Tablet] 1 tab PO TID #21 tablet 05/15/17 Aspirin [Ecotrin 81 mg EC Tablet] 81 mg PO DAILY tabec 05/15/17 Carvedilol [Coreg 6.25 mg Tablet] 6.25 mg PO Q12 #60 tablet 05/15/17 Diltiazem HCl [Cardizem Cd 180 mg Capsule] 120 mg PO Q12 #60 capsule.cr Magnesium Oxide [Mag-Ox 400 mg Tablet] 800 mg PO DAILY #30 tablet 05/15/17 Metolazone [Zaroxolyn 2.5 mg Tablet] 2.5 mg PO DAILY tablet 05/15/17 Potassium Chloride [Klor-Con 10 Meq Tablet.sa] 20 meq PO DAILY #30 tablet.sa 07/21 History of Present Illness History of Present Illness: This is a 81-year-old white female with a past medical history of A. fib and CHF who presented to the service with progressive swelling of her bilateral lower extremities. The patient was found to be in atrial fibrillation and brought into the hospital for further management. She was also found to be in acute heart failure with anasarca and BNP of 3000. Please see details of the H& P as detailed below by the admitting provider. History of Present Illness Admission Date/PCP: 05/10/17 17:05 Dr. Devries Cardiology Patient complains of: Swelling of her legs and shortness of breath History of Present Illness: MARTA ROGERS is a 81 year old female with a history of A. fib and CHF right lung mass presents with swelling of both legs. Patient states over the last 2 weeks her legs were getting larger and larger. Patient is now having shortness of breath. Patient went to see her jacquard loom heddles tier and he sent her here to have IV diuresis. Patient only takes 20 of p.o. Lasix at home patient states that she did not notice any increased urination with this dose. Patient states she normally weighs 112 and now weighs 123 pounds. Patient states she is short of breath with walking she has difficulty lying flat, she is short of breath at rest but does not have any chest pain. In the ED patient was found to have a BNP of 3000. She is also a little hypotensive at 95/61 and was given a small bolus. Patient was also slightly tachycardic however this resolved with rest. Hospitalist was called to further evaluate patient and admit patient for CHF exacerbation and IV diuresis. Hospital Course Hospital Course: Patient was admitted to the floor initially. She was started on diuresis with Lasix 40 mg twice a day. For her atrial fibrillation she was initially treated with metoprolol. Unfortunately the patient's heart rate continue to climb up into the 160s and 170s. Dr. WILLSON was involved with her care remotely. He recommended cessation of metoprolol and initiation of Coreg in place. This was done. But when the patient's blood pressure dropped the patient was subsequently placed back on metoprolol. When I assumed care of the patient, the patient was back on metoprolol with rates continuing in the 140s-150s. This was discontinued and Coreg was restarted. I spoke with Dr. WILLSON over the phone who felt that the patient could be over diuresed. Therefore we stopped her Lasix and gave her 250 cc bolus of fluid back. This was done in attempts to manage her RVR. Unfortunately, this was unsuccessful. Patient was given another 250 cc bolus but heart rates continue to climb to 170s. At this point the patient was transferred to [facility] [place] care the Cardizem drip was started. This offered better control for the patient her Coreg was also increased to 6.25 twice a day. The patient did better with this with occasional breakthrough and her heart rate. Eventually she was converted over to p.o. Cardizem at 30 mg 4 times a day. She did well with this and was subsequently converted to 120 mg twice a day. The patient did better with this dose of medications; however, she still had issues with breakthrough tachycardia. During the patient's entire stay she was completely asymptomatic. She denies any chest pain or shortness of breath. Her heart rate eventually settled down to the 90s. However, when she gets up to move around she does go up to the 110s low 120s. Ultimately she may need titration of her Cardizem upward , but on average she is now more consistently at 110 or less. Therefore we will discharge her home and allow her to follow-up with Dr. WILLSON hopefully by the end of this week. Physical Exam Vital Signs: Temp Pulse Resp BP Pulse Ox 98.0 F 86 16 128/82 H 96 05/15/17 11:56 05/15/17 11:56 05/15/17 11:56 05/15/17 11:56 05/15/17 11:56 Intake & Output 05/14/17 05/15/17 05/16/17 06:59 06:59 06:59 Intake Total 1779 1256 477 Output Total 1850 1100 550 Balance -71 156 -73 Weight 72.1 kg 72.1 kg GENERAL: Well-developed thin, elderly white female resting in bed currently in no acute distress HEART: Irregularly irregular rhythm. Her heart rate has slowed considerably to 90s. No gallops or rubs. 1 out of 6 systolic ejection murmur. LUNGS: Clear to auscultation bilaterally with equal rise and fall of the chest. Breathing is not labored. She currently is on oxygen via nasal cannula. ABDOMEN: Soft, nontender, minimal distention with normoactive bowel sounds EXTREMETIES: No clubbing, cyanosis. Trace edema at best. 1+ peripheral pulses bilaterally. NEURO: Awake, alert and oriented 3. Cranial nerves II through XII are grossly intact. Results Laboratory Results: 05/13/17 06:10 05/15/17 06:15 05/14/17 05/15/17 22:47 06:15 Sodium 134.1 L 134.1 L Potassium 3.7 4.3 Chloride 95 L 98 Carbon Dioxide 30 28 Anion Gap 9 8 BUN 10 10 Creatinine 0.48 L 0.52 Est GFR ( Amer) > 60 > 60 Est GFR (Non-Af Amer) > 60 > 60 Glucose 129 H 116 H Calcium 9.1 9.2 Magnesium 1.9 1.9 05/10/17 05/11/17 05/11/17 23:54 06:18 12:27 Troponin I < 0.012 < 0.012 < 0.012 NT-Pro-B Natriuret Pep 05/14/17 05/15/17 09:08 06:15 Troponin I < 0.012 NT-Pro-B Natriuret Pep 1310 H 1130 H Impressions: Chest X-Ray 05/12/17 07:00 IMPRESSION: BASILAR DENSITIES WITH PLEURAL EFFUSIONS. RIGHT PLEURAL EFFUSION HAS DECREASED IN SIZE. Qualifiers PATEINT BEING DISCHARGED WITH ANY OF THE FOLLOWING DIAGNOSIS?: No Plan Time Spent: Greater than 30 Minutes
[2017-05-15 16:58] VITALS: BP 128/82
[2017-05-15] MEDS ORDERED: DILTIAZEM HCL 180 MG CAPSULE.CR PO SCH (22:00)
[2017-05-16] MEDS ORDERED: WARFARIN SODIUM 3 MG TABLET PO SCH (22:00)
--- NOTE | 2017-05-19 09:53 | XCELERA REPORT ---
[address] [address] Transthoracic Echocardiogram Report Name: MARTA ROGERS Age: 81 yrs Gender: Female : 1935 Patient Status: Inpatient Patient Location: [facility]^A Study Date: 05/11/2017 09:12 AM Height: 65 in Weight: 125 lb BSA: 1.6 m2 Reason For Study: CHF Ordering Physician: LIVAN COOK Performed By: Rob Powell Interpretation Summary No significant Post. Pericardial Effusion. Ao root is not enlarged AV is calcified abnormal, and highly suggestive of bicuspid aortic valve. with probably low flow low gradient aortic stenosis, no AR. Mild Mitral annular calcificationwith no MS, but mod/severe MR and mild LA enlargement.(MARII = 41ml/m2) No LVH, LVEF 34% by biplane analysis (ak), unknown if LV diastolic dysfunction due to no tissue doppler imaging done, and pt in A Fib. Multiple LVsegmental disease. No LV enlargement. RV is normal RA is dilated, RVSP is 58 mm Hg (with RAP 15 mm Hg , dilated IVC 2.3cm with <50% collapse with sniff). This is moderate pulm hypertension ([facility]) cannot r/o BAV MMode/2D Measurements & Calculations RVDd: 2.3 cm LVIDd: 4.2 cm FS: 20.8 % Ao root diam: 2.9 cm IVSd: 0.75 cm LVIDs: 3.3 cm EDV(Teich): 77.1 ml LVPWd: 0.78 cm ESV(Teich): 44.2 ml Ao root area: 6.5 cm2 EF(Teich): 42.7 % LA dimension: 3.8 cm Doppler Measurements & Calculations MV E max lani: MV P1/2t max lani: Ao V2 max: LV V1 max P.6 cm/sec 139.3 cm/sec 99.1 cm/sec 2.2 mmHg MV P1/2t: 39.5 msec Ao max PG: LV V1 max: 3.9 mmHg 74.6 cm/sec MVA(P1/2t): 5.6 cm2 MV dec slope: 1033 cm/sec2 PA V2 max: TR max lani: RAP systole: 93.3 cm/sec 329.8 cm/sec 10.0 mmHg PA max P.5 mmHg TR max P.5 mmHg RVSP(TR): 53.5 mmHg Left Ventricle The left ventricle is grossly normal size. There is normal left ventricular wall thickness. Left ventricular systolic function is moderate to severely reduced. LV EF is 34%. LV diastolic function not assessed. There are regional wall motion abnormalities as specified. There is no thrombus. Right Ventricle The right ventricle is normal size. Atria The right atrium is mildly dilated. The left atrial size is normal. The interatrial septum is intact with no evidence for an atrial septal defect. Mitral Valve The mitral valve is normal in structure and function. There is no evidence of mitral valve prolapse. There is no mitral valve stenosis. There is a moderate to severe amount of mitral regurgitation. Aortic Valve The aortic valve is sclerotic and shows some degree of functional abnormality. The aortic valve opens well. The aortic valve is normal in structure but functionally abnormal. A bicuspid aortic valve cannot be excluded. There is no aortic valvular vegetation. There is no aortic valve stenosis. No aortic regurgitation is present. Tricuspid Valve The tricuspid valve is not well visualized, but is grossly normal. There is a moderate to severe amount of tricuspid regurgitation. Right ventricular systolic pressure is estimated to be elevated at 50-60mmHg. Pulmonic Valve The pulmonic valve is not well visualized. There is no pulmonic valvular regurgitation. Great Vessels The aortic root is normal size. Effusions There is no pericardial effusion. Moderate size left pleural effusion. I WMSI = 1.63 % Normal = 38 Segments Size X - Cannot 1 - Normal 2 - 3 - Akinetic4 - 1-2 small Interpret Hypokinetic Dyskinetic 3-5 moderate 5 - 6-14 large Aneurysmal 15-16 diffuse : LIVAN COOK > Anjel Durbin
== END 2017-05-15 17:25 | disposition home or self-care (01) | DRG 292 ==
LOC: ER 14:58 → EH 17:05 → UNDOADMIN 17:30 → 4S 19:58 → 3S 05-12 17:45
PROVIDERS: ADMIT Pediatrics; ATTEND Pediatrics
DX: I11.0 Hypertensive heart disease with heart failure (principal); N30.00 Acute cystitis without hematuria; I50.23 Acute on chronic systolic (congestive) heart failure; I95.2 Hypotension due to drugs; R00.0 Tachycardia, unspecified; I48.2 Chronic atrial fibrillation; I25.10 Atherosclerotic heart disease of native coronary artery without angina pectoris; I27.2 Other secondary pulmonary hypertension; E78.5 Hyperlipidemia, unspecified; R91.8 Other nonspecific abnormal finding of lung field; R79.1 Abnormal coagulation profile; E87.6 Hypokalemia; D64.9 Anemia, unspecified; B96.20 Unspecified Escherichia coli [E. coli] as the cause of diseases classified elsewhere; T50.2X5A Adverse effect of carbonic-anhydrase inhibitors, benzothiadiazides and other diuretics, initial encounter; Y92.230 Patient room in hospital as the place of occurrence of the external cause; I25.2 Old myocardial infarction; Z95.5 Presence of coronary angioplasty implant and graft; Z87.891 Personal history of nicotine dependence; Z79.01 Long term (current) use of anticoagulants; Z79.899 Other long term (current) drug therapy
CPT/HCPCS: 36415; 71010; 80048; 80053; 81001; 82272; 82550; 82553; 82607; 82728; 82746; 83540; 83550; 83735; 83880; 84439; 84443; 84466; 84484; 85025; 85045; 85610; 85730; 87086; 87088; 87186; 93005; 93010; 93306; 99285; J0696; J1940; J3475; J3480; J3490; J7030

== ENCOUNTER → 2017-05-22 | Outpatient (CLI) | payer MEDICARE, BC ==
[2017-05-22 11:33] LABS: ANION GAP 14 (5-19); BLOOD UREA NITROGEN 17 mg/dL (7-20); CALCIUM 9.9 mg/dL (8.4-10.2); CARBON DIOXIDE 25 mmol/L (22-30); CHLORIDE 96 mmol/L (98-107); CREATININE RESULT 0.64 mg/dL (0.52-1.25); GLUCOSE 111 mg/dL (75-110); POTASSIUM 4.3 mmol/L (3.6-5.0); SODIUM 135.2 mmol/L (137-145)
[2017-05-22 14:06] LABS: PROTHROMBIN TIME 32.9 SEC (11.4-15.4)
[2017-05-22 14:39] LABS: POTASSIUM 4.3 mmol/L (3.6-5.0); SODIUM 135.2 mmol/L (137-145)
== END ==
LOC: OD 09:51
PROVIDERS: ATTEND Internal Medicine
DX: I48.0 Paroxysmal atrial fibrillation (principal); R06.02 Shortness of breath; I50.9 Heart failure, unspecified; Z79.899 Other long term (current) drug therapy
CPT/HCPCS: 36415; 80048; 80051; 83735; 83880; 85610

== ENCOUNTER → 2017-06-06 | Outpatient (CLI) | payer MEDICARE, BC ==
[2017-06-06 08:07] LABS: HEMATOCRIT 30.8 % (36.0-47.0); HGB HCT DIFFERENCE -0.8; MEAN CORPUSCULAR HEMOGLOBIN 24.5 pg (27.0-33.4); MEAN CORPUSCULAR HGB CONC 32.4 g/dL (32.0-36.0); MEAN CORPUSCULAR VOLUME 75 fl (80-97); RED BLOOD COUNT 4.08 10^6/uL (3.72-5.28); RED CELL DISTRIBUTION WIDTH 20.1 % (11.5-14.0); WHITE BLOOD COUNT 9.2 10^3/uL (4.0-10.5)
[2017-06-06 08:32] LABS: ALANINE AMINOTRANSFERASE 30 U/L (9-52); ALKALINE PHOSPHATASE 104 U/L (38-126); ANION GAP 13 (5-19); ASPARTATE AMINO TRANSFERASE 19 U/L (14-36); BILIRUBIN,DIRECT 0.4 mg/dL (0.0-0.4); BILIRUBIN,TOTAL 0.4 mg/dL (0.2-1.3); BLOOD UREA NITROGEN 30 mg/dL (7-20); CALCIUM 9.8 mg/dL (8.4-10.2); CARBON DIOXIDE 27 mmol/L (22-30); CHLORIDE 96 mmol/L (98-107); CHOLESTEROL 144.32 mg/dL (0-200); CREATININE RESULT 0.93 mg/dL (0.52-1.25); Direct HDL 46 mg/dL (>40); GLUCOSE 115 mg/dL (75-110); MAGNESIUM 2.1 mg/dL (1.6-2.3); POTASSIUM 4.4 mmol/L (3.6-5.0); TOTAL PROTEIN 6.8 g/dL (6.3-8.2); TRIGLYCERIDES 100 mg/dL (<150)
[2017-06-06 08:44] LABS: DIRECT LDL 76 mg/dL (<100)
== END ==
LOC: OD 07:07
PROVIDERS: ATTEND Internal Medicine Cardiovascular Disease
DX: R06.02 Shortness of breath (principal); I25.10 Atherosclerotic heart disease of native coronary artery without angina pectoris; I48.1 Persistent atrial fibrillation; Z79.899 Other long term (current) drug therapy
CPT/HCPCS: 36415; 80048; 80061; 80076; 83735; 83880; 85027

== ENCOUNTER → 2017-06-13 | Outpatient (CLI) | payer MEDICARE, BC ==
[2017-06-13 12:52] LABS: ANION GAP 16 (5-19); BLOOD UREA NITROGEN 28 mg/dL (7-20); CALCIUM 9.7 mg/dL (8.4-10.2); CARBON DIOXIDE 26 mmol/L (22-30); CHLORIDE 92 mmol/L (98-107); CREATININE RESULT 1.08 mg/dL (0.52-1.25); GLUCOSE 94 mg/dL (75-110); POTASSIUM 4.4 mmol/L (3.6-5.0); SODIUM 133.5 mmol/L (137-145)
== END ==
LOC: EDBD → OD 10:54
PROVIDERS: ATTEND Internal Medicine Cardiovascular Disease
DX: R06.02 Shortness of breath (principal); Z79.899 Other long term (current) drug therapy
CPT/HCPCS: 36415; 80048; 83880

== ENCOUNTER → 2017-07-18 | Outpatient (CLI) | payer MEDICARE, BC ==
[2017-07-18 12:17] LABS: PROTHROMBIN TIME 37.3 SEC (11.4-15.4)
[2017-07-18 12:40] LABS: ANION GAP 13 (5-19); BLOOD UREA NITROGEN 32 mg/dL (7-20); CALCIUM 10.1 mg/dL (8.4-10.2); CARBON DIOXIDE 23 mmol/L (22-30); CHLORIDE 99 mmol/L (98-107); CHOLESTEROL 125.78 mg/dL (0-200); CREATININE RESULT 1.14 mg/dL (0.52-1.25); Direct HDL 58 mg/dL (>40); GLUCOSE 127 mg/dL (75-110); POTASSIUM 5.9 mmol/L (3.6-5.0); SODIUM 135.4 mmol/L (137-145); TRIGLYCERIDES 75 mg/dL (<150)
[2017-07-18 12:51] LABS: DIRECT LDL 51 mg/dL (<100)
== END ==
LOC: OD 10:24
PROVIDERS: ATTEND Internal Medicine
DX: E78.00 Pure hypercholesterolemia, unspecified (principal); R06.02 Shortness of breath; Z79.899 Other long term (current) drug therapy; I48.91 Unspecified atrial fibrillation; Z79.01 Long term (current) use of anticoagulants
CPT/HCPCS: 36415; 80048; 80061; 83880; 85610

== ENCOUNTER 2017-07-20 14:28 | Emergency (ER) | payer MEDICARE, BC ==
[2017-07-20 14:57] VITALS: BP 112/59
[2017-07-20 15:54] LABS: ABSOLUTE EOSINOPHILS # (AUTO) 0.1 10^3/uL (0.0-0.6); ABSOLUTE LYMPHOCYTES (AUTO) 1.6 10^3/uL (0.5-4.7); ABSOLUTE MONOCYTES (AUTO) 0.8 10^3/uL (0.1-1.4); ABSOLUTE NEUT (AUTO) 3.8 10^3/uL (1.7-8.2); BASOPHILS % (AUTO) 0.2 % (0-2); EOSINOPHILS % (AUTO) 1.1 % (0-6); HEMATOCRIT 29.5 % (36.0-47.0); HEMOGLOBIN 9.6 g/dL (12.0-15.5); HGB HCT DIFFERENCE -0.7; LYMPHOCYTES % (AUTO) 25.6 % (13-45); MEAN CORPUSCULAR HEMOGLOBIN 24.8 pg (27.0-33.4); MEAN CORPUSCULAR HGB CONC 32.6 g/dL (32.0-36.0); MEAN CORPUSCULAR VOLUME 76 fl (80-97); MONOCYTES % (AUTO) 12.3 % (3-13); RED BLOOD COUNT 3.88 10^6/uL (3.72-5.28); RED CELL DISTRIBUTION WIDTH 20.7 % (11.5-14.0); SEGMENTED NEUTROPHILS % (AUTO) 60.8 % (42-78); WHITE BLOOD COUNT 6.2 10^3/uL (4.0-10.5)
[2017-07-20 16:24] LABS: ALANINE AMINOTRANSFERASE 27 U/L (9-52); ALBUMIN 3.9 g/dL (3.5-5.0); ALKALINE PHOSPHATASE 104 U/L (38-126); ANION GAP 10 (5-19); ASPARTATE AMINO TRANSFERASE 20 U/L (14-36); BILIRUBIN,DIRECT 0.3 mg/dL (0.0-0.4); BILIRUBIN,TOTAL 0.4 mg/dL (0.2-1.3); BLOOD UREA NITROGEN 27 mg/dL (7-20); CALCIUM 9.2 mg/dL (8.4-10.2); CARBON DIOXIDE 23 mmol/L (22-30); CHLORIDE 100 mmol/L (98-107); GLUCOSE 103 mg/dL (75-110); SODIUM 132.5 mmol/L (137-145); TOTAL PROTEIN 6.9 g/dL (6.3-8.2)
[2017-07-20 16:29] LABS: POTASSIUM 5.2 mmol/L (3.6-5.0)
--- NOTE | 2017-07-20 16:39 | ER Document Report ---
ED General - General Chief Complaint: Abnormal Lab Results Stated Complaint: ABNORMAL LABS Time Seen by Provider: 07/20/17 14:44 Mode of Arrival: Ambulatory Information source: Patient Notes: 81-year-old female sent in by cardiology for concerns of hyperkalemia, lab work was noted to have a potassium 6.2. Patient herself denies any complaints, states she has never been told she has high potassium, denies taking any medications with potassium in it TRAVEL OUTSIDE OF THE [place] IN LAST 30 DAYS: No - HPI Onset: Just prior to arrival Onset/Duration: Sudden Quality of pain: No pain Severity: None Pain Level: Denies Associated symptoms: None Exacerbated by: Denies Relieved by: Denies Similar symptoms previously: No Recently seen / treated by doctor: Yes - Related Data Allergies/Adverse Reactions: No Known Allergies Allergy (Verified 07/20/17 16:29) Past Medical History - Social History Smoking Status: Never Smoker Cigarette use (# per day): No Chew tobacco use (# tins/day): No Smoking Education Provided: No Drug Abuse: None Family History: COPD Patient has suicidal ideation: No Patient has homicidal ideation: No - Past Medical History Cardiac Medical History: Reports: Hx Atrial Fibrillation, Hx Coronary Artery Disease, Hx Heart Attack, Hx Hypercholesterolemia, Hx Hypertension Denies: Hx Congestive Heart Failure, Hx DVT Pulmonary Medical History: Reports: Hx Pneumonia Denies: Hx COPD, Hx Tuberculosis Endocrine Medical History: Denies: Hx Diabetes Mellitus Type 2 Renal/ Medical History: Denies: Hx Peritoneal Dialysis Psychiatric Medical History: Denies: Hx Depression Past Surgical History: Reports: Hx Cardiac Surgery - stent, Hx Coronary Stent - Immunizations Hx Diphtheria, Pertussis, Tetanus Vaccination: No - UNK Review of Systems - Review of Systems Notes: REVIEW OF SYSTEMS: CONSTITUTIONAL : Denies fever, chills, or sweats. Denies recent illness. EENT: Denies eye, ear, throat, or mouth pain or symptoms. Denies nasal or sinus congestion or discharge. Denies throat, tongue, or mouth swelling or difficulty swallowing. CARDIOVASCULAR: Denies chest pain. Denies palpitations or racing or irregular heart beat. Denies ankle edema. RESPIRATORY: Denies cough, cold, or chest congestion. Denies shortness of breath, difficulty breathing, or wheezing. GASTROINTESTINAL: Denies abdominal pain or distention. Denies nausea, vomiting , or diarrhea. Denies blood in vomitus, stools, or per rectum. Denies black, tarry stools. Denies constipation. GENITOURINARY: Denies difficulty urinating, painful urination, burning, frequency, blood in urine, or discharge. FEMALE GENITOURINARY: Denies vaginal bleeding, heavy or abnormal periods, irregular periods. Denies vaginal discharge or odor. MUSCULOSKELETAL: Denies back or neck pain or stiffness. Denies joint pain or swelling. SKIN: Denies rash, lesions or sores. HEMATOLOGIC : Denies easy bruising or bleeding. LYMPHATIC: Denies swollen, enlarged glands. NEUROLOGICAL: Denies confusion or altered mental status. Denies passing out or loss of consciousness. Denies dizziness or lightheadedness. Denies headache. Denies weakness or paralysis or loss of use of either side. Denies problems with gait or speech. Denies sensory loss, numbness, or tingling. Denies seizures. PSYCHIATRIC: Denies anxiety or stress. Denies depression, suicidal ideation, or homicidal ideation. ALL OTHER SYSTEMS REVIEWED AND NEGATIVE. PHYSICAL EXAMINATION: GENERAL: Well-appearing, well-nourished and in no acute distress. HEAD: Atraumatic, normocephalic. EYES: Pupils equal round and reactive to light, extraocular movements intact, conjunctiva are normal. ENT: Nares patent, oropharynx clear without exudates. Moist mucous membranes. NECK: Normal range of motion, supple without lymphadenopathy LUNGS: Breath sounds clear to auscultation bilaterally and equal. No wheezes rales or rhonchi. HEART: Regular rate and rhythm without murmurs ABDOMEN: Soft, nontender, nondistended abdomen. No guarding, no rebound. No masses appreciated. Female : deferred Musculoskeletal: Normal range of motion, no pitting or edema. No cyanosis. NEUROLOGICAL: Cranial nerves grossly intact. Normal speech, normal gait. Normal sensory, motor exams PSYCH: Normal mood, normal affect. SKIN: Warm, Dry, normal turgor, no rashes or lesions noted. Dictation was performed using [employer] voice recognition software Physical Exam - Vital signs Vitals: Temp Pulse Resp BP Pulse Ox 97.6 F 99 18 112/59 L 98 07/20/17 14:55 07/20/17 14:55 07/20/17 14:55 07/20/17 14:55 07/20/17 14:55 Course - Re-evaluation Re-evalutation: 07/20/17 16:37 Patient denies any complaints at all, repeat of the blood work notes potassium 5.2, I did contact her primary care physician Dr. Brandon lord and notified him of lab results we both agree that intervention is not appropriate at this time, he will follow-up with the patient and she is otherwise stable for discharge After performing a Medical Screening Examination, I estimate there is LOW risk for RUPTURED ESOPHAGUS, PNEUMOTHORAX, PULMONARY EMBOLISM, ACUTE CORONARY SYNDROME, OR THORACIC AORTIC DISSECTION, thus I consider the discharge disposition reasonable. I have reevaluated this patient multiple times and no significant life threatening changes are noted. The patient and I have discussed the diagnosis and risks, and we agree with discharging home with close follow-up. We also discussed returning to the Emergency Department immediately if new or worsening symptoms occur. We have discussed the symptoms which are most concerning (e.g., bloody sputum, worsening pain or shortness of breath) that necessitate immediate return. - Vital Signs Vital signs: Temp Pulse Resp BP Pulse Ox 97.6 F 99 18 112/59 L 98 07/20/17 14:55 07/20/17 14:55 07/20/17 14:55 07/20/17 14:55 07/20/17 14:55 - Laboratory Result Diagrams: 07/20/17 15:43 07/20/17 15:43 Laboratory results interpreted by me: 07/20/17 07/20/17 15:43 15:43 Hgb 9.6 L Hct 29.5 L MCV 76 L MCH 24.8 L RDW 20.7 H Sodium 132.5 L Potassium 5.2 H D BUN 27 H Est GFR (Non-Af Amer) 53 L - EKG Interpretation by Mt EKG shows normal: Sinus rhythm, [place], Intervals, QRS Complexes Discharge - Discharge Clinical Impression: Hyperkalemia Condition: Stable Disposition: HOME, SELF-CARE Additional Instructions: Please follow-up with your physicians in 1-2 days for reevaluation or return immediately if there are any other concerns
--- NOTE | 2017-07-21 09:37 | EKG REPORT ---
SEVERITY:- ABNORMAL ECG - ATRIAL FIBRILLATION, V-RATE 74-138 PROBABLE INFERIOR INFARCT, OLD : Confirmed by: Makayla Gregg 21-Jul-2017 09:35:37
== END 2017-07-20 14:55 | disposition home or self-care (01) ==
LOC: ER 14:28
DX: E87.5 Hyperkalemia (principal); I48.91 Unspecified atrial fibrillation; I25.10 Atherosclerotic heart disease of native coronary artery without angina pectoris; E78.00 Pure hypercholesterolemia, unspecified; I10 Essential (primary) hypertension; I25.2 Old myocardial infarction
CPT/HCPCS: 36415; 80048; 80053; 85025; 93005; 93010; 99283

== ENCOUNTER → 2017-07-20 | Outpatient (CLI) | payer MEDICARE, BC ==
[2017-07-20 13:14] LABS: ANION GAP 15 (5-19); BLOOD UREA NITROGEN 29 mg/dL (7-20); CALCIUM 9.6 mg/dL (8.4-10.2); CARBON DIOXIDE 19 mmol/L (22-30); CHLORIDE 98 mmol/L (98-107); CREATININE RESULT 1.01 mg/dL (0.52-1.25); GLUCOSE 107 mg/dL (75-110); SODIUM 132.2 mmol/L (137-145)
[2017-07-20 13:29] LABS: POTASSIUM 6.2 mmol/L (3.6-5.0)
== END ==
LOC: OD 10:55
PROVIDERS: ATTEND Internal Medicine Cardiovascular Disease
DX: E87.5 Hyperkalemia (principal)
CPT/HCPCS: 80048

== ENCOUNTER → 2017-07-26 | Outpatient (CLI) | payer MEDICARE, BC ==
[2017-07-26 08:25] LABS: PROTHROMBIN TIME 37.3 SEC (11.4-15.4)
== END ==
LOC: OD 07:17
PROVIDERS: ATTEND Internal Medicine
DX: I48.91 Unspecified atrial fibrillation (principal); Z79.01 Long term (current) use of anticoagulants
CPT/HCPCS: 36415; 85610

== ENCOUNTER → 2017-07-28 | Outpatient (CLI) | payer MEDICARE, BC ==
[2017-07-28 12:44] LABS: ANION GAP 14 (5-19); BLOOD UREA NITROGEN 23 mg/dL (7-20); CALCIUM 9.1 mg/dL (8.4-10.2); CARBON DIOXIDE 24 mmol/L (22-30); CHLORIDE 97 mmol/L (98-107); CREATININE RESULT 1.05 mg/dL (0.52-1.25); GLUCOSE 111 mg/dL (75-110); SODIUM 134.5 mmol/L (137-145)
== END ==
LOC: OD 10:58
PROVIDERS: ATTEND Internal Medicine Cardiovascular Disease
DX: E87.5 Hyperkalemia (principal); I50.21 Acute systolic (congestive) heart failure; R06.02 Shortness of breath
CPT/HCPCS: 36415; 80048; 83880

== ENCOUNTER → 2017-08-14 | Outpatient (CLI) | payer MEDICARE, BC ==
[2017-08-14 11:21] LABS: PARTIAL THROMBOPLASTIN TIME 44.2 SEC (23.5-35.8); PROTHROMBIN TIME 26.4 SEC (11.4-15.4)
[2017-08-14 11:45] LABS: ANION GAP 11 (5-19); BLOOD UREA NITROGEN 19 mg/dL (7-20); CALCIUM 9.2 mg/dL (8.4-10.2); CARBON DIOXIDE 26 mmol/L (22-30); CHLORIDE 99 mmol/L (98-107); CREATININE RESULT 0.88 mg/dL (0.52-1.25); GLUCOSE 112 mg/dL (75-110); POTASSIUM 4.1 mmol/L (3.6-5.0); SODIUM 136.1 mmol/L (137-145)
== END ==
LOC: OD 10:34
PROVIDERS: ATTEND Internal Medicine
DX: R06.02 Shortness of breath (principal); I48.91 Unspecified atrial fibrillation; E87.5 Hyperkalemia; I48.1 Persistent atrial fibrillation; Z79.01 Long term (current) use of anticoagulants
CPT/HCPCS: 36415; 80048; 83880; 85610; 85730

== ENCOUNTER → 2017-09-02 | Outpatient (CLI) | payer MEDICARE, BC ==
[2017-09-02 10:52] LABS: ANION GAP 8 (5-19); BLOOD UREA NITROGEN 17 mg/dL (7-20); CALCIUM 9.4 mg/dL (8.4-10.2); CARBON DIOXIDE 29 mmol/L (22-30); CHLORIDE 100 mmol/L (98-107); GLUCOSE 109 mg/dL (75-110); POTASSIUM 5.1 mmol/L (3.6-5.0); SODIUM 137.2 mmol/L (137-145)
== END ==
LOC: OD 09:40
PROVIDERS: ATTEND Internal Medicine Cardiovascular Disease
DX: I50.21 Acute systolic (congestive) heart failure (principal); R06.02 Shortness of breath; I48.1 Persistent atrial fibrillation
CPT/HCPCS: 36415; 80048; 83880

== ENCOUNTER → 2017-09-16 | Outpatient (CLI) | payer MEDICARE, BC ==
[2017-09-16 10:17] LABS: ANION GAP 12 (5-19); BLOOD UREA NITROGEN 21 mg/dL (7-20); CALCIUM 9.4 mg/dL (8.4-10.2); CARBON DIOXIDE 28 mmol/L (22-30); CHLORIDE 98 mmol/L (98-107); GLUCOSE 112 mg/dL (75-110); POTASSIUM 4.8 mmol/L (3.6-5.0); SODIUM 137.7 mmol/L (137-145)
== END ==
LOC: OD 09:06
PROVIDERS: ATTEND Internal Medicine Cardiovascular Disease
DX: R06.02 Shortness of breath (principal); E87.5 Hyperkalemia; I48.1 Persistent atrial fibrillation
CPT/HCPCS: 36415; 80048; 83880

== ENCOUNTER 2018-02-15 11:50 | Emergency (ER) | payer MEDICARE, BC ==
--- NOTE | 2018-02-15 12:35 | ER Document Report ---
ED Medical Screen (RME) - General Chief Complaint: Urinary Problem Stated Complaint: BLOOD IN URINE Time Seen by Provider: 02/15/18 12:34 Notes: RAPID MEDICAL EVALUATION DISCLOSURE I have seen this patient as part of a Rapid Medical Evaluation and, if applicable, placed any initially appropriate orders. The patient will be seen and fully evaluated, including a full history and physical exam, by a provider ( in Main ED or Fast Track) when a room becomes available. 82-year-old female here with complaints of vaginal bleeding. She does not think that it is coming from urination. She does not have any dysuria frequency hesitancy back/abdominal/flank pain. She only sees the blood when she wipes but does not see it in the toilet. She denies any bloody stools. She does take Eliquis for atrial fibrillation. EXAM CTAB Tachycardic Irregularly irregular rhythm No abdominal TTP TRAVEL OUTSIDE OF THE [place] IN LAST 30 DAYS: No - Related Data Allergies/Adverse Reactions: No Known Allergies Allergy (Verified 02/15/18 11:52) Past Medical History - Social History Chew tobacco use (# tins/day): No Frequency of alcohol use: None Drug Abuse: None Family history: None - Past Medical History Cardiac Medical History: Reports: Hx Atrial Fibrillation, Hx Coronary Artery Disease, Hx Heart Attack, Hx Hypercholesterolemia, Hx Hypertension Denies: Hx Congestive Heart Failure, Hx DVT Pulmonary Medical History: Reports: Hx Pneumonia Denies: Hx COPD, Hx Tuberculosis Endocrine Medical History: Denies: Hx Diabetes Mellitus Type 2 Renal/ Medical History: Denies: Hx Peritoneal Dialysis Psychiatric Medical History: Denies: Hx Depression Past Surgical History: Reports: Hx Cardiac Surgery - stent, Hx Coronary Stent - Immunizations Hx Diphtheria, Pertussis, Tetanus Vaccination: No - UNK Physical Exam - Vital signs Vitals: Temp Pulse Resp BP Pulse Ox 98.2 F 115 H 20 106/71 97 02/15/18 11:55 02/15/18 11:55 02/15/18 11:55 02/15/18 11:55 02/15/18 11:55 Course - Vital Signs Vital signs: Temp Pulse Resp BP Pulse Ox 98.2 F 115 H 20 106/71 97 02/15/18 11:55 02/15/18 11:55 02/15/18 11:55 02/15/18 11:55 02/15/18 11:55 Doctor's Discharge - Discharge Referrals: DONA WHITLOCK MD [Primary Care Provider] - Follow up as needed
[2018-02-15] MEDS ORDERED: NORMAL SALINE 1000 ML 1,000 ML IV ONE (12:37)
[2018-02-15 12:58] LABS: ABSOLUTE BASOPHILS # (AUTO) 0.1 10^3/uL (0.0-0.2); ABSOLUTE EOSINOPHILS # (AUTO) 0.1 10^3/uL (0.0-0.6); ABSOLUTE LYMPHOCYTES (AUTO) 0.7 10^3/uL (0.5-4.7); ABSOLUTE MONOCYTES (AUTO) 0.7 10^3/uL (0.1-1.4); ABSOLUTE NEUT (AUTO) 5.2 10^3/uL (1.7-8.2); BASOPHILS % (AUTO) 0.9 % (0-2); EOSINOPHILS % (AUTO) 1.4 % (0-6); HEMOGLOBIN 11.5 g/dL (12.0-15.5); LYMPHOCYTES % (AUTO) 10.3 % (13-45); MEAN CORPUSCULAR HEMOGLOBIN 28.5 pg (27.0-33.4); MEAN CORPUSCULAR HGB CONC 31.8 g/dL (32.0-36.0); MEAN CORPUSCULAR VOLUME 90 fl (80-97); MONOCYTES % (AUTO) 10.2 % (3-13); PLATELET COUNT 318 10^3/uL (150-450); RED BLOOD COUNT 4.02 10^6/uL (3.72-5.28); RED CELL DISTRIBUTION WIDTH 30.9 % (11.5-14.0); SEGMENTED NEUTROPHILS % (AUTO) 77.2 % (42-78); TOTAL CELLS COUNTED % (AUTO) 100 %; WHITE BLOOD COUNT 6.7 10^3/uL (4.0-10.5)
[2018-02-15 13:03] LABS: INTERNATIONAL RATION (INR) 1.37; PROTHROMBIN TIME 17.6 SEC (11.4-15.4)
[2018-02-15 13:04] LABS: PARTIAL THROMBOPLASTIN TIME 35.1 SEC (23.5-35.8)
[2018-02-15 13:20] LABS: ACANTHOCYTES SLIGHT; ANISOCYTOSIS 4+; BURR CELLS 1+; HYPOCHROMASIA SLIGHT; OVALOCYTES 2+; PLATELET COMMENT ADEQUATE; POIKILOCYTOSIS 2+; POLYCHROMASIA 2+; SCHISTOCYTES SLIGHT
[2018-02-15] MEDS ORDERED: DILTIAZEM HCL INJ 25 MG/5 ML VIAL IV ONE (13:22)
[2018-02-15 13:32] LABS: ALANINE AMINOTRANSFERASE 24 U/L (9-52); ALBUMIN 3.6 g/dL (3.5-5.0); ALKALINE PHOSPHATASE 144 U/L (38-126); ANION GAP 12 (5-19); ASPARTATE AMINO TRANSFERASE 28 U/L (14-36); BILIRUBIN,DIRECT 0.6 mg/dL (0.0-0.4); BILIRUBIN,TOTAL 0.8 mg/dL (0.2-1.3); BLOOD UREA NITROGEN 21 mg/dL (7-20); CALCIUM 9.5 mg/dL (8.4-10.2); CARBON DIOXIDE 23 mmol/L (22-30); CHLORIDE 100 mmol/L (98-107); GLUCOSE 109 mg/dL (75-110); POTASSIUM 4.9 mmol/L (3.6-5.0); SODIUM 135.4 mmol/L (137-145); TOTAL PROTEIN 6.3 g/dL (6.3-8.2)
[2018-02-15 13:52] LABS: APPEARANCE,URINE CLOUDY; BILIRUBIN,URINE NEGATIVE (NEGATIVE); COLOR,URINE YELLOW; GLUCOSE, URINE NEGATIVE (NEGATIVE); KETONES,URINE NEGATIVE (NEGATIVE); LEUKOCYTE ESTERASE,URINE LARGE (NEGATIVE); NITRITE,URINE NEGATIVE (NEGATIVE); PROTEIN,URINE 100 mg/dL (NEGATIVE); URINE SPECIFIC GRAVITY 1.012
--- NOTE | 2018-02-15 13:55 | ER Document Report ---
ED General - General Chief Complaint: Urinary Problem Stated Complaint: BLOOD IN URINE Time Seen by Provider: 02/15/18 12:34 Notes: The patient is an 82-year-old female, past medical history A. fib (on Eliquis and diltiazem 30 mg 3 times daily), presents after she noticed some blood on the toilet paper after urinating and wiping. Patient is due for her afternoon diltiazem dose. She denies feeling lightheaded, dysuria, flank pain, fevers, heavy vaginal bleeding, diarrhea, constipation or rectal bleeding. TRAVEL OUTSIDE OF THE [place] IN LAST 30 DAYS: No - Related Data Allergies/Adverse Reactions: No Known Allergies Allergy (Verified 02/15/18 11:52) Past Medical History - General Information source: Patient - Social History Smoking Status: Never Smoker Chew tobacco use (# tins/day): No Frequency of alcohol use: None Drug Abuse: None Family History: COPD Patient has suicidal ideation: No Patient has homicidal ideation: No - Past Medical History Cardiac Medical History: Reports: Hx Atrial Fibrillation, Hx Coronary Artery Disease, Hx Heart Attack, Hx Hypercholesterolemia, Hx Hypertension Denies: Hx Congestive Heart Failure, Hx DVT Pulmonary Medical History: Reports: Hx Pneumonia Denies: Hx COPD, Hx Tuberculosis Endocrine Medical History: Denies: Hx Diabetes Mellitus Type 2 Renal/ Medical History: Denies: Hx Peritoneal Dialysis Psychiatric Medical History: Denies: Hx Depression Past Surgical History: Reports: Hx Cardiac Surgery - stent, Hx Coronary Stent - Immunizations Hx Diphtheria, Pertussis, Tetanus Vaccination: No - UNK Review of Systems - Review of Systems Notes: REVIEW OF SYSTEMS: CONSTITUTIONAL: -fevers, -chills EENT: -eye pain, -difficulty swallowing, -nasal congestion CARDIOVASCULAR: -chest pain, -syncope. RESPIRATORY: -cough, -SOB GASTROINTESTINAL: -abdominal pain, -nausea, -vomiting, -diarrhea GENITOURINARY: -dysuria, -hematuria, +vaginal bleeding MUSCULOSKELETAL: -back pain, -neck pain SKIN: -rash or skin lesions. HEMATOLOGIC: -easy bruising or bleeding. LYMPHATIC: -swollen, enlarged glands. NEUROLOGICAL: -altered mental status or loss of consciousness, -headache, - neurologic symptoms PSYCHIATRIC: -anxiety, -depression. ALL OTHER SYSTEMS REVIEWED AND NEGATIVE. Physical Exam - Vital signs Vitals: Temp Pulse Resp BP Pulse Ox 98.2 F 115 H 20 106/71 97 06/14/18 11:55 02/15/18 11:55 02/15/18 11:55 02/15/18 11:55 02/15/18 11:55 - Notes Notes: PHYSICAL EXAMINATION: GENERAL: Well-appearing, well-nourished and in no acute distress. HEAD: Atraumatic, normocephalic. EYES: Pupils equal round and reactive to light, extraocular movements intact, sclera anicteric, conjunctiva are normal. ENT: nares patent, oropharynx clear without exudates. Moist mucous membranes. NECK: Normal range of motion, supple without lymphadenopathy LUNGS: Breath sounds clear to auscultation bilaterally and equal. No wheezes rales or rhonchi. HEART: Irregularly irregular rhythm, tachycardia. ABDOMEN: Soft, nontender, normoactive bowel sounds. No guarding, no rebound. No masses appreciated. : No vaginal bleeding or lesions. EXTREMITIES: Normal range of motion, no pitting or edema. No cyanosis. NEUROLOGICAL: Cranial nerves grossly intact. Normal speech, normal gait. Normal sensory and motor exams. PSYCH: Normal mood, normal affect. SKIN: Warm, Dry, normal turgor, no rashes or lesions noted. Course - Re-evaluation Re-evalutation: On exam, patient does not have any vaginal bleeding or lacerations. Her urinalysis is positive for urinary tract infection with hematuria. Will treat her for Keflex. Patient went into A. fib with RVR while in the ED and she was provided her afternoon dose of diltiazem and a IV diltiazem dose. She remained stable during this. She only takes Eliquis daily and has a history of A. fib. Patient's heart rate was controlled down to 80s and her blood pressure remained normal. Will discharge her home with follow-up at her primary care physician and escort service attendant. - Vital Signs Vital signs: Temp Pulse Resp BP Pulse Ox 98.2 F 115 H 20 106/71 97 02/15/18 11:55 02/15/18 11:55 02/15/18 11:55 02/15/18 11:55 02/15/18 11:55 - Laboratory Result Diagrams: 02/15/18 12:42 02/15/18 12:42 Laboratory results interpreted by me: 02/15/18 02/15/18 02/15/18 12:42 12:42 12:42 Hgb 11.5 L MCHC 31.8 L RDW 30.9 H Lymphocytes % 10.3 L PT 17.6 H Sodium 135.4 L BUN 21 H Direct Bilirubin 0.6 H Alkaline Phosphatase 144 H Urine Protein Urine Blood Urine Urobilinogen Ur Leukocyte Esterase 02/15/18 13:30 Hgb MCHC RDW Lymphocytes % PT Sodium BUN Direct Bilirubin Alkaline Phosphatase Urine Protein 100 H Urine Blood LARGE H Urine Urobilinogen 2.0 H Ur Leukocyte Esterase LARGE H - EKG Interpretation by Me EKG shows normal: [place], Intervals Rate: Tachycardia Rhythm: A.Fib Critical Care Note - Critical Care Note Total time excluding time spent on procedures (mins): 35 Discharge - Discharge Clinical Impression: Atrial fibrillation with rapid ventricular response UTI (urinary tract infection) Qualifiers: Urinary tract infection type: acute cystitis Hematuria presence: with hematuria Qualified Code(s): N30.01 - Acute cystitis with hematuria Condition: Stable Disposition: HOME, SELF-CARE Additional Instructions: URINARY TRACT INFECTION: Your evaluation indicates that you have a urinary tract infection. This is due to germs growing in the bladder. This is a common problem. This infection usually responds quickly to antibiotics. Your antibiotic should be taken exactly as prescribed. Drink plenty of fluids -- three to four quarts a day. Occasionally, a bladder anesthetic will be prescribed to help stop the feeling of urgency until the antibiotic has a chance to clear the infection. This may cause your urine to be dark orange. Certain urine infections require a culture. If the doctor obtained a culture, the results will be back in two days. You should call to see if a change in treatment is needed. A repeat urinalysis after you finish treatment is often recommended. The physician will let you know if further testing is required. Call the doctor if you develop fever, chills, flank pain, inability to urinate, or blood in the urine. ANTIBIOTIC THERAPY: You have been given an antibiotic prescription. It's important that you take all the medication, unless instructed otherwise by your physician. Failure to complete the entire course can result in relapse of your condition. Common side effects of antibiotics include nausea, intestinal cramping, or diarrhea. Women may develop vaginal yeast infections, and babies can get yeast (thrush) in the mouth following the use of antibiotics. Contact your physician if you develop significant side effects from this medication. Allergy to this antibiotic can result in hives, wheezing, faintness, or itching. If symptoms of allergy occur, stop the medication and call the doctor. CEPHALEXIN: The antibiotic you've been prescribed is a member of the cephalosporin class. This type of antibiotic covers a wide variety of infections, including those of the skin, lungs, and urinary tract. It's useful for staph infections. This antibiotic is slightly similar to the penicillin family. In rare cases , a person who is allergic to penicillin will also be allergic to this medication. If you have had a severe allergic reaction to penicillin, and have not taken this antibiotic since that time, notify your doctor. Antibiotics which cover many germs ("broad spectrum" antibiotics) are more likely to cause diarrhea or "yeast" infections. Women prone to vaginal yeast problems may suffer an attack after taking this antibiotic. In infants, oral thrush (white spots "stuck" on the cheek) or yeast diaper rash may result. See your doctor if these problems occur. Call at once if you develop itching, hives , shortness of breath, or lightheadedness. FOLLOW-UP CARE: If you have been referred to a physician for follow-up care, call the physician s office for an appointment as you were instructed or within the next two days. If you experience worsening or a significant change in your symptoms, notify the physician immediately or return to the Emergency Department at any time for re-evaluation. Atrial Fibrillation Atrial fibrillation is an abnormal heart rhythm, caused by irregular electrical circuits in the upper heart chamber. It can be caused by heart valve disease, hardening of the arteries, or metabolic problems such as thyroid disease, or may occur without a clear cause. Atrial fibrillation may occur only occasionally, or may be chronic. Atrial fibrillation often results in a very fast heart rate, with palpitations, lightheadedness, and shortness of breath. Treatment is to slow the abnormally fast rate, and to convert the rhythm back to normal, if possible. Many patients stay in atrial fibrillation for years without symptoms or complications. Your doctor will decide whether you can be converted back to a normal heart rhythm. Contact the doctor or emergency medical system at once if you develop chest pain, shortness of breath, or severe lightheadedness, or if you develop any disturbance of consciousness, problems with speech, or localized weakness. Prescriptions: Cephalexin Monohydrate [Keflex 500 mg Capsule] 500 mg PO TID 7 Days capsule Referrals: DONA WHITLOCK MD [Primary Care Provider] - Follow up as needed
[2018-02-15] MEDS ORDERED: CEPHALEXIN 500 MG CAPSULE PO ONE ×2 (14:07→14:38)
[2018-02-15 15:31] VITALS: BP 104/74
--- NOTE | 2018-02-15 20:24 | EKG REPORT ---
SEVERITY:- ABNORMAL ECG - ATRIAL FIBRILLATION, V-RATE 96-161 RIGHT AXIS DEVIATION LOW VOLTAGE IN FRONTAL LEADS BORDERLINE PROLONGED QT INTERVAL : Confirmed by: Anjel Durbin MD 15-Feb-2018 20:24:15
== END 2018-02-15 15:47 | disposition home or self-care (01) ==
LOC: ER 11:50
DX: N30.01 Acute cystitis with hematuria (principal); I48.91 Unspecified atrial fibrillation; I25.10 Atherosclerotic heart disease of native coronary artery without angina pectoris; I10 Essential (primary) hypertension; E78.00 Pure hypercholesterolemia, unspecified; Z79.02 Long term (current) use of antithrombotics/antiplatelets; I25.2 Old myocardial infarction
CPT/HCPCS: 93005; 99285; 51701; 96361; 96374; 36415; 85025; 85610; 85730; 80053; 81001; 93010; A9270; J3490; J7030